=== PATIENT | male | born 1980 | race Caucasian/White ===

== ENCOUNTER 2025-04-09 12:08 | Emergency (ER) | payer OTHER, SELFPAY ==
--- NOTE | ~2025-04-09 | XR_ITS ---
EXAMINATION: XR chest 2V 04/09/2025 13:30 INDICATION: Chest pain PROCEDURE: 2 view chest COMPARISON: No prior studies for comparison. FINDINGS: The lungs are clear. The cardiomediastinal silhouette is within normal limits. There are no pleural effusions. There is no pneumothorax suspected. IMPRESSION: 1: NO ACUTE CARDIOPULMONARY DISEASE. Reviewed, dictated and finalized at location B.
--- NOTE | ~2025-04-09 | US_ITS ---
RIGHT UPPER QUADRANT ABDOMINAL ULTRASOUND (Doppler ultrasound interrogation techniques used as needed for this exam.) Ordering provider: Yimi Thomason MD History: . RUQ pain . Comparison: None. FINDINGS: PANCREAS: Normal echotexture and size of the visualized portion. PORTAL VEIN: Hepatopedal flow demonstrated. LIVER: Normal size and echotexture. No focal hepatic lesions or perihepatic fluid collections are katelynn ntified. BILIARY DUCTS: No intra or extrahepatic biliary dilation. Common bile duct measures 4.3 mm in diamete r which is normal for patient's age. GALLBLADDER: Normal. No stones, sludge, gallbladder wall thickening or pericholecystic fluid. Wall th ickness is 3.1 mm. Negative sonographic Rubio's sign. Abdominal aorta: Normal. IVC: Patent. FREE FLUID: None visualized within the upper abdomen. IMPRESSION: normal right upper quadrant ultrasound. Reviewed, dictated and finalized at location A.
--- OUTSIDE RECORDS SUMMARY | 2025-04-09 12:12 | XMS_ITS | Continuity of Care Document ---
Author Name [facility] Organization [facility] Care Team Providers Care Maintenance Team Member Name Role Phone [facility] Unavailable Unavailable Problems Combined list of problems from Department of Defense and Veterans Affairs facilities. It does not include entries that were removed or entered in error. Problem Status Onset Date Problem Type Date of Resolution Comments Source Disorder of the skin and subcutaneous tissue, unspecified Active 9 Condition DoD tobacco use Active Condition DoD WARTS PLANTAR Inactive Condition DoD HYPERLIPIDEMIA Active Condition DoD Removal Of Sutures Inactive Condition Do D Aftercare Following Surgery Of Skin And Subcutaneous Tissue Inactive Condition DoD SORE THROAT Inactive Condition DoD SEBACEOUS CYST Active Condition DoD GASTROENTERITIS VIRAL Inactive Condition DoD REFRACTIVE ERROR - HYPERMETROPIA Active Condition DoD ASTIGMATISM - REGULAR Active Condition DoD COMMON COLD Inactive Condition DoD physical trauma sports-related Inactive Condition DoD SPRAIN RIBS Inactive Condition DoD work-related environmental exposure Inactive Condition DoD visit for: services flight physical Active Condition DoD visit for: services physical pre-deployment Active Condition [facility] visit for: screening exam malaria Active Condition DoD SINUSITIS Active Condition [facility] visit for: administrative purpose Inactive Condition [facility] visit for: screening exam venereal disease Active Condition DoD Vesicle (___mm) Active Condition DoD EPIDERMAL INCLUSION CYST Inactive Condition DoD upper back pain (between shoulder blades) Active Condition DoD ALLERGIC RHINITIS Active Condition DoD SHOULDER STRAIN LEFT Inactive Condition [facility] visit for: refer patient without exam or treatment Active Condition DoD limb pain Inactive Condition DoD RHINITIS Inactive Condition DoD BURSITIS Active Condition DoD UPPER RESPIRATORY INFECTION Active Condition Likely viral etiology, although erthematous tonsils appreciated. WIll cx to r/o strep. quarters x 24hrs. F/u with 24 hour quarters again toomorrow if patient returns and continues to feel ill. addendum:Rapid strep + , pt tolerated injections well. DoD Patient Education Active Condition DoD CARPAL TUNNEL SYNDROME Active Condition DoD visit for: occupational health / fitness exam Inactive Condition Cleared, see o/p DoD joint pain, localized in the knee Active Condition DoD TENDONITIS PATELLAR Active Condition Do D NO PSYCHIATRIC DIAGNOSIS OR CONDITION ON AXIS I Inactive Condition DoD NON-INFECTIOUS GASTROENTERITIS Inactive Condition DoD Patient Counseling: Inactive Condition D oD CONTUSION WITH INTACT SKIN SURFACE - LEFT LITTLE FINGER Inactive Condition DoD VIRAL DISEASE Active Condition DoD visit for: services physical Active Condition DoD visit for: issue medical certificate fitness Inactive Condition 422 COMPLETED DoD Outpatient Physician Consultation Inactive Condition DoD Medications Combined list of outpatient medications from Department of Defense and Veterans Affairs facilities.Medications provided include 1) outpatient medications from the last 15 months, and 2) patient-reported medications. Medication Details Route Status Patient Instructions Prescription Expires Prescription Number Last Dispense Date Ordering Provider Order Date Order Qty Source atorvastati n 10 mg tablet = 1 tab(s), Oral, Daily, # 90 EA, 1 total refill(s ), Soft Stop Oral (given by mouth) Ordered 5 2024 90.0 Ambulat ory Pharmac y carbamide peroxide 6.5% ear drops [15mL] See Instruct ions, # 15 mL, 0 total refill(s ), Soft Stop Ordered 5 2024 15.0 Ambulat ory Pharmac y ergocalcife rol 1.25 mg (50,000 units) capsule See Instruct ions, # 13 EA, 2 total refill(s ), Soft Stop Ordered 5 2024 13.0 Ambulat ory Pharmac y fluticasone 50 mcg/inh nasal spray [16g] See Instruct ions, # 48 g, 0 total refill(s ), Soft Stop Ordered 5 2024 48.0 Ambulat ory Pharmac y Hydrocortis one (ProctoCrea m-HC Eq.) Cream 2.5% Topical For external use. 03/05/2025 [id number] 4 2023 28.35 [facility] Gus PEREZ ([facility] hydrocortis one 2.5% cream [30g] See Instruct ions, # 30 g, 0 total refill(s ), Soft Stop Ordered 5 2024 30.0 Ambulat ory Pharmac y hydrocortis one 2.5% rectal cream w/ applicator [28.35g] See Instruct ions, # 28.35 g, 0 total refill(s ), Hard Stop Complet ed 03/05/2025 4 2024 28.35 Ambulat ory Pharmac y influenza virus vaccine, inactivated mdck cell derived quadrivalen t intramuscul ar suspension influenz a virus vaccine, inactiva fabián mdck cell derived quadriva lent intramus cular suspensi on Start Date: 09/12/20 Status: Ordered Repeat number: 1 Ordered 2020 No Facilit y Access loratadine 10 mg tablet See Instruct ions, # 90 EA, 0 total refill(s ), Soft Stop Ordered 5 2024 90.0 Ambulat ory Pharmac y triamcinolo ne 0.1% cream [15g] See Instruct ions, # 30 g, 0 total refill(s ), Soft Stop Ordered 5 2024 30.0 Ambulat ory Pharmac y Allergies, Adverse Reactions, Alerts Combined list of allergies from Department of Defense and Veterans Affairs facilities. It does not include entries that were removed or entered in error. Substance Category Reaction Severity Reaction type Status Date Reported Comments Source No Known Allergies Drug allergy (disorder) active 07/09/2008 [facility] Immunizations Combined list of available immunizations from the Department of Defense and Veterans Affairs facilities. Immunization Series Date Given Administered By Site Reaction Lot Number CVX Code Drug Hand Striper Status Comments Source COVID Vaccine Moderna 2020 [id number] complet ed COVID Vaccine Moderna 03/18/21 Given Ambulat ory Pharmac y SARS-COV-2 (COVID-19) vaccine, mRNA, spike protein, LNP, preservative free, 100 mcg or 50 mcg dose 2 2020 [id number] Moderna [employer] (MOD) complet ed SARS-COV- 2 (COVID-19 ) vaccine, mRNA, spike protein, LNP, preservat candelario free, 100 mcg or 50 mcg dose DoD COVID Vaccine Moderna 2020 [id number] complet ed COVID Vaccine Moderna 02/18/21 Given Ambulat ory Pharmac y SARS-COV-2 (COVID-19) vaccine, mRNA, spike protein, LNP, preservative free, 100 mcg or 50 mcg dose 1 2020 [id number] 207 Moderna [employer] (MOD) complet ed SARS-COV- 2 (COVID-19 ) vaccine, mRNA, spike protein, LNP, preservat candelario free, 100 mcg or 50 mcg dose DoD influenza virus vaccine, inactivated 2019 88 complet ed influenza virus vaccine, inactivat ed 09/06/20 Given Ambulat ory Pharmac y influenza, injectable, quadrivalent- pf 2019 [id number] 150 complet ed influenza , injectabl e, quadrival ent-pf 09/06/20 Given Ambulat ory Pharmac y Influenza, injectable, MDCK, quadrivalent, preservative 2019 ELMA RICHARDSON, () Not Given Influenza , injectabl e, MDCK, quadrival ent, preservat candelario DoD Influenza, injectable, quadrivalent, preservative free 1 2019 150 Transcribed (TRS) complet ed Influenza , injectabl e, quadrival ent, preservat candelario free DoD Influenza, injectable, Madin Prince [place] Canine Kidney, quadrivalent with preservative 0 2019 186 (MVX) complet ed Influenza , injectabl e, Madin Martha Canine Kidney, quadrival ent with preservat candelario DoD influenza, injectable, quadrivalent- pf 2018 [id number] 150 Seqirus complet ed influenza , injectabl e, quadrival ent-pf 09/25/19 Given Ambulat ory Pharmac y Influenza, injectable, quadrivalent, preservative free 1 2018 [id number] 150 Seqirus (SEQ) complet ed Influenza , injectabl e, quadrival ent, preservat candelario free DoD influenza, injectable, quadrivalent- pf 2017 [id number] 150 GlaxoSmithKli ne complet ed influenza , injectabl e, quadrival ent-pf 10/28/18 Given Ambulat ory Pharmac y Influenza, injectable, quadrivalent, preservative free 1 2017 [id number] 150 SmithKline (SKB) complet ed Influenza , injectabl e, quadrival ent, preservat candelario free DoD influenza, injectable, quadrivalent 2016 [id number] 158 GlaxoSmithKli ne complet ed influenza , injectabl e, quadrival ent 09/13/17 Given Ambulat ory Pharmac y influenza, injectable, quadrivalent, contains preservative 0 2016 [id number] 158 SmithKline (SKB) complet ed influenza , injectabl e, quadrival ent, contains preservat candelario DoD influenza, seasonal, injectable-pf 2015 [id number] 140 Seqirus complet ed influenza , seasonal, injectabl e-pf 09/04/16 Given Ambulat ory Pharmac y Influenza, seasonal, injectable, preservative free 16 2015 [id number] 140 Seqirus (SEQ) comple t ed Influenza , seasonal, injectabl e, preservat candelario free DoD influenza, seasonal, injectable-pf 2015 [id number] 140 CSL Behring complet ed influenza , seasonal, injectabl e-pf 11/23/15 Given Ambulat ory Pharmac y Influenza, seasonal, injectable, preservative free 15 2015 [id number] 140 CS Biotherapies, Inc. (CSL) complet ed Influenza , seasonal, injectabl e, preservat candelario free DoD influenza, seasonal, injectable 2013 [id number] 141 ID Biomedical comple t ed influenza , seasonal, injectabl e 10/26/14 Given Ambulat ory Pharmac y Influenza, seasonal, injectable 14 2013 [id number] 141 (IDB) complet ed Influenza , seasonal, injectabl e DoD influenza, seasonal, injectable 2012 [id number] 141 CSL Behring complet ed influenza , seasonal, injectabl e 08/12/13 Given Ambulat ory Pharmac y Influenza, seasonal, injectable 13 2012 [id number] 141 CS [employer]otherapies[employer] Inc. (CSL) complet ed Influenza , seasonal, injectabl e DoD influenza, seasonal, injectable-pf 2011 [id number] 140 CSL Behring complet ed influenza , seasonal, injectabl e-pf 08/22/12 Given Ambulat ory Pharmac y Influenza, seasonal, injectable, preservative free 12 2011 [id number] 140 CS Biotherapies[employer] Inc. (CSL) complet ed Influenza , seasonal, injectabl e, preservat candelario free DoD tetanus, diphtheria, acellular pertu is 2011 [id number] 115 [facility] tetanus, diphtheri a, acellular pertussis 06/19/12 Given Ambulat ory Pharmac y tetanus toxoid, reduced diphtheria toxoid, and acellular pertu is vaccine, adsorbed 0 2011 [id number] [id number] 115 SmithKline (SKB) complet ed tetanus toxoid, reduced diphtheri a toxoid, and acellular pertussis vaccine, adsorbed DoD influenza, seasonal, injectable-pf 2010 [id number] 140 sanofi pasteur complet ed influenza , seasonal, injectabl e-pf 09/06/11 Given Ambulat ory Pharmac y Influenza, seasonal, injectable, preservative free 11 2010 [id number] 140 Sanofi Pasteur (PMC) complet ed Influenza , seasonal, injectabl e, preservat candelario free DoD hepatitis B adult vaccine 2010 [id number] 43 GlaxoSmithKli ne complet ed hepatitis B adult vaccine 01/26/11 Given Ambulat ory Pharmac y anthrax vaccine 2010 [id number] 24 Emergent Biosolutions complet ed anthrax vaccine 01/26/11 Given Ambulat ory Pharmac y anthrax vaccine 3 2010 [id number] 24 Emergent Bio[employer] [place] ([facility]) complet ed anthrax vaccine DoD hepatitis B vaccine, adult dosage 3 2010 [id number] 43 SmithSolidariumine (SKB) complet ed hepatitis B vaccine, adult dosage DoD hepatitis B adult vaccine 2009 [id number] [id number] 43 GlaxoSmithKli ne complet ed hepatitis B adult vaccine 08/16/10 Given Ambulat ory Pharmac y anthrax vaccine 2009 [id number] 24 Emergent Biosolutions complet ed anthrax vaccine 08/16/10 Given Ambulat ory Pharmac y influenza virus vaccine,split 2009 [id number] 15 CSL Behring complet ed influenza virus vaccine,s plit 08/16/10 Given Ambulat ory Pharmac y influenza virus vaccine, split virus (incl. purified surface antigen)-reti red CODE 1 2009 [id number] 15 CSL Biotherapies, Inc. (CSL) complet ed influenza virus vaccine, split virus (incl. purified surface antigen)- retired CODE DoD anthrax vaccine 2 2009 [id number] 24 [employer] [place] (MIP) complet ed anthrax vaccine DoD hepatitis B vaccine, adult dosage 2 2009 [id number] 43 SmithKline (SKB) complet ed hepatitis B vaccine, adult dosage DoD typhoid Vi capsular polysaccharid e vac 2009 Q8049-2 101 sanofi pasteur complet ed typhoid Vi capsular polysacch aride vac 07/06/10 Given Ambulat ory Pharmac y hepatitis B adult vaccine 2009 [id number] [id number] 43 GlaxoSmithKli ne complet ed hepatitis B adult vaccine 07/06/10 Given Ambulat ory Pharmac y anthrax vaccine 2009 [id number] Emergent Biosolutions complet ed anthrax vaccine 07/06/10 Given Ambulat ory Pharmac y anthrax vaccine 1 2009 [id number] 24 [employer] [place] (MIP) complet ed anthrax vaccine DoD hepatitis B vaccine, adult dosage 1 2009 [id number] [id number] 43 [facility] (SKB) complet ed hepatitis B vaccine, adult dosage DoD typhoid Vi capsular polysaccharid e vaccine 1 2009 P8946-2 101 Sanofi Pasteur ([facility]) complet ed typhoid Vi capsular polysacch aride vaccine DoD Novel influenza-H1N 1-09,pf,injec table 2009 [id number] 1 126 Novartis Pharmaceutica ls complet ed Novel influenza -N9V6-87, pf,inject able 12/27/09 Given Ambulat ory Pharmac y Novel influenza-H1N 1-09, preservative- free, injectable 1 2009 [id number] 1 126 Novartis Pharmaceutica l Jeffry. (NOV) complet ed Novel influenza -H8O0-51, preservat candelario-free, injectabl e DoD influenza virus vaccine,split 2008 [id number] 15 sanofi pasteur complet ed influenza virus vaccine,s plit 09/07/09 Given Ambulat ory Pharmac y influenza virus vaccine, split virus (incl. purified surface antigen)-reti red CODE 1 2008 [id number] 15 Sanofi Pasteur ([facility]) complet ed influenza virus vaccine, split virus (incl. purified surface antigen)- retired CODE DoD influenza virus vaccine, live 2007 [id number] 111 Rentalutions Inc comple t ed influenza virus vaccine, live 08/24/08 Given Ambulat ory Pharmac y influenza virus vaccine, live, attenuated, for intranasal use 1 2007 [id number] 111 RetSKU, Inc. (MED) complet ed influenza virus vaccine, live, attenuate d, for intranasa l use DoD influenza virus vaccine, live 2006 [id number] 111 Rental[employer] Inc comple t ed influenza virus vaccine, live 10/02/07 Given Ambulat ory Pharmac y influenza virus vaccine, live, attenuated, for intranasal use 1 2006 [id number] 111 RetSKU[employer]. (MED) complet ed influenza virus vaccine, live, attenuate d, for intranasa l use DoD influenza virus vaccine,split 2005 [id number] 15 sanofi pasteur complet ed influenza virus vaccine,s plit 11/01/06 Given Ambulat ory Pharmac y influenza virus vaccine, split virus (incl. purified surface antigen)-reti red CODE 1 2005 [id number] 15 Sanofi Pasteur ([facility]) complet ed influenza virus vaccine, split virus (incl. purified surface antigen)- retired CODE DoD influenza virus vaccine, whole virus 1 2005 Unknown, Provider [id number] 16 Sanofi Pasteur ([facility]) complet ed influenza virus vaccine, whole virus DoD influenza virus vaccine, whole virus 2004 [id number] 16 sanofi pasteur complet ed influenza virus vaccine, whole virus 10/10/05 Given Ambulat ory Pharmac y influenza virus vaccine,split 2004 [id number] 15 sanofi pasteur complet ed influenza virus vaccine,s plit 10/10/05 Given Ambulat ory Pharmac y influenza virus vaccine, split virus (incl. purified surface antigen)-reti red CODE 1 2004 [id number] 15 Sanofi Pasteur ([facility]) complet ed influenza virus vaccine, split virus (incl. purified surface antigen)- retired CODE DoD influenza virus vaccine, whole virus 1 2004 [id number] 16 Sanofi Pasteur (PMC) complet ed influenza virus vaccine, whole virus DoD influenza virus vaccine, whole virus 2004 [id number] 16 sanofi pasteur complet ed influenza virus vaccine, whole virus 12/20/04 Given Ambulat ory Pharmac y influenza virus vaccine, whole virus 0 2004 [id number] 16 Sanofi Pasteur (PMC) complet ed influenza virus vaccine, whole virus DoD influenza virus vaccine, whole virus 2002 [id number] 16 Novartis TourRadartica complet ed influenza virus vaccine, whole virus 10/05/03 Given Ambulat ory Pharmac y influenza virus vaccine, whole virus 0 2002 [id number] 16 PowderJect Pharmaceutica ls (PWJ) complet ed influenza virus vaccine, whole virus DoD tuberculin purified protein derivative 2002 [id number] 96 sanofi pasteur complet ed tuberculi n purified protein derivativ e 11/25/02 Given Ambulat ory Pharmac y tuberculin skin test; purified protein derivative solution, intradermal 1 2002 Unknown, Provider [id number] 96 Sanofi Pasteur (PMC) complet ed tuberculi n skin test; purified protein derivativ e solution, intraderm al DoD influenza virus vaccine, whole virus 2001 [id number] 16 [employer] complet ed influenza virus vaccine, whole virus 09/16/02 Given Ambulat ory Pharmac y influenza virus vaccine, whole virus 0 2001 [id number] 16 [facility] ([facility]) complet ed influenza virus vaccine, whole virus DoD typhoid Vi capsular polysaccharid e vac 2001 [id number] 101 sanofi pasteur complet ed typhoid Vi capsular polysacch aride vac 05/12/02 Given Ambulat ory Pharmac y yellow fever vaccine 2001 [id number] 37 sanofi pasteur complet ed yellow fever vaccine 05/12/02 Given Ambulat ory Pharmac y yellow fever vaccine 0 2001 [id number] 37 Sanofi Pasteur (PMC) complet ed yellow fever vaccine DoD typhoid Vi capsular polysaccharid e vaccine 0 2001 [id number] 101 Sanofi Pasteur (PMC) complet ed typhoid Vi capsular polysacch aride vaccine DoD hepatitis A adult vaccine 2001 [id number] 52 GlaxoSmithKli ne complet ed hepatitis A adult vaccine 05/02/02 Given Ambulat ory Pharmac y tetanus-dipht h toxoids (Td) adult/adol 2001 [id number] 09 sanofi pasteur complet ed tetanus-d iphth toxoids (Td) adult/ado l 05/02/02 Given Ambulat ory Pharmac y tetanus and diphtheria toxoids, adsorbed, preservative free, for adult use (2 Lf of tetanus toxoid and 2 Lf of diphtheria toxoid) 0 2001 [id number] 09 Sanofi Pasteur (PMC) complet ed tetanus and diphtheri a toxoids, adsorbed, preservat candelario free, for adult use (2 Lf of tetanus toxoid and 2 Lf of diphtheri a toxoid) DoD hepatitis A vaccine, adult dosage 2 2001 [id number] 52 [employer] (SKB) complet ed hepatitis A vaccine, adult dosage DoD measles/mumps /rubella virus vaccine 2000 [id number] 03 Merck & Company Inc complet ed measles/m umps/rube lla virus vaccine 09/06/01 Given Ambulat ory Pharmac y measles, mumps and rubella virus vaccine 0 2000 [id number] 03 Merck (MSD) complet ed measles, mumps and rubella virus vaccine DoD varicella virus vaccine 1 2000 21 () Not Given varicella virus vaccine DoD poliovirus vaccine, inactivated 2000 [id number] 10 sanofi pasteur complet ed polioviru s vaccine, inactivat ed 08/30/01 Given Ambulat ory Pharmac y tuberculin purified protein derivative 2000 [id number] 96 [facility] tuberculi n purified protein derivativ e 08/30/01 Given Ambulat ory Pharmac y hepatitis A adult vaccine 2000 [id number] 52 Merck & Company Inc complet ed hepatitis A adult vaccine 08/30/01 Given Ambulat ory Pharmac y meningococcal polysaccharid e (MPSV4) 2000 [id number] 32 [facility] ed meningoco ccal polysacch aride (MPSV4) 08/30/01 Given Ambulat ory Pharmac y influenza virus vaccine, whole virus 2000 [id number] 16 [facility] complet ed influenza virus vaccine, whole virus 08/30/01 Given Ambulat ory Pharmac y poliovirus vaccine, inactivated 0 2000 [id number] 10 Sanofi Pasteur (PMC) complet ed polioviru s vaccine, inactivat ed DoD influenza virus vaccine, whole virus 0 2000 [id number] 16 [facility] ([facility]) complet ed influenza virus vaccine, whole virus DoD meningococcal polysaccharid e vaccine (MPSV4) 0 2000 [id number] 32 [facility] (CON) complet ed meningoco ccal polysacch aride vaccine (MPSV4) DoD hepatitis A vaccine, adult dosage 1 2000 [id number] 52 Merck (MSD) complet ed hepatitis A vaccine, adult dosage DoD tuberculin skin test; purified protein derivative solution, intradermal 1 2000 Unknown, Provider [id number] 96 Louise (TODD) complet ed tuberculi n skin test; purified protein derivativ e solution, intraderm al DoD Encounters Combined list of: 1) Encounters from Department of Veterans Affairs facilities going backup to the last 18 months, not all VA inpatient encounters are included; 2) Encounters from the Department of Defense facilities going backup to 280 months. Location Location Details Encounter Type Encounter Number Reason For Visit Attending Provider ADM Date DC Date Status Disposition Source [facility] OUTPATIENT [id number] rec rev EFREN ALCOCER 08/08 Released w/o Limitations [facility]) TELE CONSULT [id number] pt has concern s about a wart that was frozen YVROSE SY 08/31 [facility]) [facility]) TELE CONSULT [id number] MED REFILL YVROSE SY 10/25 [facility]) [facility] OUTPATIENT [id number] 422 PANFILO GONZALES 12/28 Released w/o Limitations [facility] OUTPATIENT [id number] EFREN ALCOCER 01/03 Released w/o Limitations [facility]) OUTPATIENT [id number] cold OMAR HARDEN 01/04 Sick at Home/Quarter s [facility]) [facility]) TELE CONSULT [id number] sore throat getting worse JULIO C GRAY 01/05 [facility] Group([facility]) [facility]) OUTPATIENT [id number] hurt finger OMAR HARDEN 02/17 Released w/o Limitations [facility]) [facility]) TELE CONSULT [id number] cold symptom s ELLIOT STERLING M 11/27 [facility]) [facility] OUTPATIENT [id number] d/ dizzyne ss OMAR HARDEN W 04/02 [facility]ick at Home[facility] OUTPATIENT [id number] lft knee pain OMAR HARDEN W 09/06 Released w/o Limitations [facility] OUTPATIENT [id number] lft knee pain OMAR HARDEN W 10/08 Released w/o Limitations [facility] OUTPATIENT [id number] Initial Firefig hter Exam WILNER DICKERSON 12/26 Released w/o Limitations [facility] OUTPATIENT [id number] Wrist pain OMAR HARDEN W 01/29 Released w/o Limitations [facility]) TELE CONSULT [id number] URGENT CARE REFERRA REGINO BROWN 05/15 [facility]) [facility] TELE CONSULT [id number] STD check KARIE MEDLEY Carson 06/14 [facility] TELE CONSULT [id number] lab results PAKO WILLS 06/21 [facility] OUTPATIENT [id number] congest ion, headach es, nausea CORNELIA GENAO 10/21 Released w/o Limitations [facility] TELE CONSULT [id number] URI CORNELIA GENAO 10/22 [facility] OUTPATIENT [id number] left foot pain CORNELIA GENAO 04/14 Released w/o Limitations [facility] OUTPATIENT [id number] Orthope dic DME lace-up ankle brace RENATA JUARES 04/14 Released w/o Limitations [facility] OUTPATIENT [id number] sore throat and fever CORNELIA GENAO 06/03 Released w/o Limitations [facility] TELE CONSULT [id number] Paperwo CHRISTINE Nicholson 07/09 [facility] OUTPATIENT [id number] sore throat and congest ion VI-LILIAM GEE 10/01 Released w/o Limitations [facility] OUTPATIENT [id number] congest ion JULIO CESAR JUDGE YNES 10/06 Released w/o Limitations [employer]([facility]) [facility] Group(Tat [facility] Team) OUTPATIENT [id number] pain in left leg, lump like blood under the skin on leg JOSIAS ROTHMAN 07/13 Released w/o Limitations [employer] [facility] TELE CONSULT [id number] triage report/ ANDRÉS Gupta 08/23 [facility] Group[facility] OUTPATIENT [id number] pains back of left shoulde r -got worse this morning /someth ing popped JOSIAS ROTHMAN 09/15 Released w/o Limitations [employer] [facility] OUTPATIENT [id number] Pt said new issue- upper right back pains for a week and no change JOSIAS ROTHMAN 03/11 Released w/o Limitations [employer](T atanka FH Team) Medical Group(FO C) OUTPATIENT [id number] jed CJ LARA L 03/22 Released w/o Limitations [employer]([facility]) [employer] Group(Tat anka FH Team) OUTPATIENT [id number] RASH JOSIAS ROTHMAN T 05/05 Released w/o Limitations [employer](T atanka FH Team) Medical Group(Tat anka FH Team) TELE CONSULT [id number] [facility] ed for results MATTHEW SEGOVIA 05/10 Medical Group(T atanka FH Team) [employer](Tat anka FH Team) OUTPATIENT [id number] f/u-- Pt said possibl e sinus infecti on and symptom s got worse BENJAMIN HOUGH 06/06 Released w/o Limitations [employer](T sissynka FH Team) Medical Group(FO C) OUTPATIENT [id number] Malaria Screeni ng CJ LARA L 06/29 Released w/o Limitations [employer]([facility]) Medical Group(FO C) OUTPATIENT [id number] ROSINA Otto 04/10 Released w/o Limitations [employer]([facility]) Medical Group(Dep [facility] Health Assessmen ts) OUTPATIENT [id number] PDHROSINA CHRISTENSEN 07/14 Released w/o Limitations [employer] [employer] Group(Tat anka FH Team) OUTPATIENT [id number] rib pains JOSIAS ROTHMAN T 08/16 Released w/o Limitations [employer](T sissynka FH Team) Medical Group(Tat anka FH Team) OUTPATIENT [id number] broke rib 3 weeks ago, still not getting better JOSIAS ROTHMAN T 09/13 Released with Work/Duty [employer](T sissynka FH Team) [employer](Tat anka FH Team) OUTPATIENT [id number] congest ion, cough, and diarrhe a JOSIAS ROTHMAN T 10/23 Released w/o Limitations [employer](T sissyncatie FH Team) Medical Group(Opt ometry Clinic) OUTPATIENT [id number] karli-a nnual eye exam WANDA NICOLE 11/02 Released w/o Limitations [employer](O ptometr y Clinic) [employer] Group(Tat faustinoa Team) OUTPATIENT [id number] vomitin g, diarrhe a, congest ion, chills, JOSIAS ROTHMAN T 11/28 Sick at Home/Quarter s [employer](Mark Anthony owen FH Team) [employer] Group(Tat faustinoa Team) OUTPATIENT [id number] congest ion, runny nose, possibl e allergi es JOSIAS ROTHMAN T 02/08 Released w/o Limitations [employer](Mark Anthony owen Team) Medical Group(Pre ventive Health Assessmen ts) OUTPATIENT [id number] PHA MEREDITH CHAPIN 03/21 Released w/o Limitations [employer](P reventi ve Health Assessm ents) Medical Group(Tat anka Team) OUTPATIENT [id number] Notes Entered by: HUMBERTO CHATMAN 09 Jul 2012 1300 ------- ------- ------- ------- -- walk in strep JOSIAS ROTHMAN T 07/09 Released w/o Limitations [employer]([facility] o[facility] Team) [employer](Tat anka Team) TELE CONSULT [id number] Notes Entered by: DAELSO VALENTIN 30 Jul 2012 1303 ------- ------- ------- ------- -- Other JOSIAS ROTHMAN T 07/30 Medical Group(Mark Anthony owen Team) Medical Group(Tat anka Team) TELE CONSULT [id number] Notes Entered by: SHEY ASIF 30 Jul 2012 1407 ------- ------- ------- ------- -- Other NADER HUTCHINSON 07/30 Medical Group(T lexie Team) [facility] OUTPATIENT [id number] Notes Entered by: HUMBERTO CHATMAN 15 Aug 2012 0916 ------- ------- ------- ------- -- walk in suture removal JOSIAS ROTHMAN 08/15 Released w/o Limitations [employer]([facility] Anthony owen FH Team) [employer](Dep loyment Health Assessmen ts) OUTPATIENT [id number] [facility] PHOEBE NGUYỄN 08/22 Released w/o Limitations [employer](D eployme nt Health Assessm ents) [employer](Anand miranad OM Team) TELE CONSULT [id number] Notes Entered by: BECKY CHAPPELL 27 Dec 2012 1213 ------- ------- ------- ------- -- 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 BECKY BLANK 12/27 [employer](R bhargav OM Team) [employer]([facility] luis Health B) OUTPATIENT [id number] f/u on allergi es ALONDRA BEAVERS 02/05 Released w/o Limitations [employer]( amily Health B) [employer]([facility] luis Health B) TELE CONSULT [id number] MINERVA JONES 03/11 [employer]( amily Health B) [employer](y sical Health Assessmen t) OUTPATIENT [id number] ELISSA VILLA 03/13 Released w/o Limitations [employer](P hysical Health Assessm ent) [employer]([facility] luis Health B) OUTPATIENT [id number] f/u blood work ALONDRA BEAVERS 03/20 Released w/o Limitations [employer](F amily Health B) [employer]([facility] luis Health B) OUTPATIENT [id number] wart removal ALONDRA BEAVERS 08/11 Released w/o Limitations [employer]( amily Health B) [employer]([facility] B) OUTPATIENT [id number] ileanat musa ALONDRA BEAVERS 01/20 Released w/o Limitations [employer]([facility] Health B) [employer]([facility] B) OUTPATIENT [id number] JED ALONDRA BEAVERS 03/25 Released w/o Limitations [employer]([facility] B) [employer]([facility] B) TELE CONSULT [id number] Notes Entered by: MARILEE AVILES 05 Oct 2014 0933 ------- ------- ------- ------- -- Zuccare lli triage; hole in left eyelid/ swollen TITUS CHLOÉ A 10/05 Referred for Appointment [employer]([facility] B) [employer](Opt ometry Clinic) OUTPATIENT [id number] Notes Entered by: Marcy CAMARENA JR 05 Oct 2014 1015 ------- ------- ------- ------- -- red eye walk in RANDY ROMAN 10/05 Released w/o Limitations [employer](O ptometr y Clinic) [employer](Opt ometry Clinic) OUTPATIENT [id number] eye pain f/u RANDY ROMAN 10/26 Released w/o Limitations [employer](O ptometr y Clinic) [employer]([facility] B) OUTPATIENT [id number] possibl e carpel tunnel in wrists ALONDRA BEAVERS 11/25 Released w/o Limitations [employer]([facility] B) [employer]([facility] C) TELE CONSULT [id number] Notes Entered by: KANA POWERS 09 Dec 2014 1225 ------- ------- ------- ------- -- Radiolo gy wrist TITI RAHMAN 12/09 Released to Self [employer]([facility] C) [employer]([facility]) TELE CONSULT [id number] Notes Entered by: NINA ORTIZ ON T 23 Dec 2014 0820 ------- ------- ------- ------- -- TRIAGE Pt is having chest congest ion, product candelario cough, sluggis h. TITI RAHMAN 12/23 Released to Self Care [employer]([facility]) [employer]([facility]) TELE CONSULT [id number] Notes Entered by: AMERICA GLASGOW 10 Feb 2015 1433 ------- ------- ------- ------- -- CHLOÉ Turcios 02/10 Released to Self Care [employer]([facility]) [employer]([facility]) TELE CONSULT [id number] Notes Entered by: JOSE MARIA HYMAN 04 Mar 2015 0925 ------- ------- ------- ------- -- Network Results - Neurolo ALONDRA Butts 03/04 [employer]([facility]) [employer]([facility]) TELE CONSULT [id number] Notes Entered by: MARILEE AVILES 05 Apr 2015 1247 ------- ------- ------- ------- -- Triage; joelle dye in ears TITI MOSES 04/05 Referred for Appointment [employer]([facility]) [employer]([facility]) OUTPATIENT [id number] Notes Entered by: EILEEN DE LOS SANTOS 06 Apr 2015 0756 ------- ------- ------- ------- -- walk-in ear wash (both ears) KANA POWERS 04/06 Released w/o Limitations [employer]([facility]) [employer](Fam luis Health B) TELE CONSULT [id number] Notes Entered by: REHAN BLAIR 13 Apr 2015 1020 ------- ------- ------- ------- -- Network Results - Orthope dic - 015 KANA POWERS 04/13 [employer](F amily Health B) [employer](y sical Health Assessmen t) OUTPATIENT [id number] Notes Entered by: JABARI WEAVER 23 Jun 2015 1324 ------- ------- ------- ------- -- Adminis trative PHA JABARI WEAVER 06/23 Released w/o Limitations [employer](P hysical Health Assessm ent) [employer]([facility] l[facility] Health B) TELE CONSULT [id number] Notes Entered by: EILEEN DE LOS SANTOS 07 Jun 2016 0827 ------- ------- ------- ------- -- Er suzanne malave/TOYIN Caputo 06/07 Referred for Appointment [employer](F amily Health B) [employer]([facility] l[facility] Health B) TELE CONSULT [id number] Notes Entered by: LISSETTE OLIVAS 07 Jun 2016 1132 ------- ------- ------- ------- -- NETWORK RESULTS ER-05/19 KANA POWERS 06/07 [employer](F amily Health B) [employer]([facility] l[facility] Health B) TELE CONSULT [id number] Notes Entered by: KANA POWERS 07 Jun 2016 1318 ------- ------- ------- ------- -- ER lou/LEON Antonio 06/07 Released to Self Care [employer](F amily Health B) [employer]([facility] luis Health B) OUTPATIENT [id number] ER follow up-ches t congest ion, sob, and joelle e. spoke with nurse already . KANA POWERS 06/08 Released w/o Limitations [employer]([facility]) [employer]([facility]) TELE CONSULT [id number] Notes Entered by: KANA POWERS P 09 Jun 2016 1241 ------- ------- ------- ------- -- CXR TOYIN DAVID 06/09 Referred for Appointment [employer]([facility]) [employer] [id number] Notes Entered by: ILSA RAI 02 Nov 2016 1551 ------- ------- ------- ------- -- Med Out-Pro cessing Workshe et ILSA CARIAS 11/02 Other Not Elsewhere Classified [employer] [employer]([facility] Medicine Clinic) OUTPATIENT [id number] Notes Entered by: KRISTIN JAMES 07 Feb 2017 1440 ------- ------- ------- ------- -- KRISTIN CHAN 02/07 Released w/o Limitations [employer]( light Medicin e Clinic) [employer](Tyn dall [facility] Team B) OUTPATIENT [id number] RASH ( GROIN AREA) OMAR MENDOZA 05/23 Released w/o Limitations [employer]([facility] Team B) [employer](Tyn sherley [facility] Team B) OUTPATIENT [id number] cold symptom s OMAR MENDOZA 06/06 Released w/o Limitations [employer]([facility] Team B) [employer](Tyn [facility] Team B) OUTPATIENT [id number] head and chest congest OMAR Christine 06/12 Released with Work/Duty Limitations [employer]([facility] Team B) [employer]([facility] Team B) TELE CONSULT [id number] Notes Entered by: ANTONIETA PEARSON 22 Nov 2017 1236 ------- ------- ------- ------- -- Triage non prp DEWAYNE KELLY 11/22 [employer]([facility] Team B) [facility] Team B) OUTPATIENT [id number] vertigo x 3 days OWEN METZGER I 11/23 Released w/o Limitations [facility] [employer] [facility] Team B) [facility] Team B) TELE CONSULT [id number] Notes Entered by: ANTONIETA PEARSON 26 Nov 2017 1043 ------- ------- ------- ------- -- Lab Results DEWAYNE KELLY 11/26 [facility] [employer] [facility] Team B) [facility] [employer](Ref erral Managemen t Clinic) TELE CONSULT [id number] Notes Entered by: KVEIN PEARSON 04 Dec 2017 0949 ------- ------- ------- ------- -- Network Results -Radiol ogy 8 OWEN METZGER I 12/04 [employer](R [facility]) [facility] [employer] [facility] Team B) OUTPATIENT [id number] dizzine ss/ligh t headedn ess/hea d acheOWEN Lantigua I 12/06 Released w/o Limitations [facility] [employer] [facility] Team B) [facility] [employer] [facility] Optometry Clinic) OUTPATIENT [id number] SIVAN Weinberg 12/10 Released w/o Limitations [facility] [employer] [facility] Optomet ry Clinic) [facility] [employer] [facility] Team B) OUTPATIENT [id number] Notes Entered by: DEVORA OLVERA 30 Jan 2018 1029 ------- ------- ------- ------- -- PHADEVORA MARTINEZ 01/30 Released w/o Limitations [employer]([facility] Team B) [employer]([facility] Team B) TELE CONSULT [id number] Notes Entered by: DEVORA OLVERA 30 Jan 2018 1032 ------- ------- ------- ------- -- Allergy meds DEVORA OLVERA 01/30 [employer]([facility] Team B) [employer]([facility] Team A) OUTPATIENT [id number] Notes Entered by: JUHI SHULTZ I 20 Feb 2018 0803 ------- ------- ------- ------- -- Walkin sore throat MORIAH BYNUM 02/20 Released w/o Limitations [employer]([facility] Team A) [employer]([facility] Team B) TELE CONSULT [id number] Notes Entered by: JAILENE FONG 22 Apr 2018 0813 ------- ------- ------- ------- -- Triage - toe injury DEWAYNE KELLY 04/22 [employer]([facility] Team B) [employer]([facility] Team B) OUTPATIENT [id number] hit toe on the side of the tub. ANGIE HURST 04/22 Released w/o Limitations [facility] Team B) [employer]([facility] Team B) OUTPATIENT [id number] chest congest ion ANGIE HURST 07/17 Released w/o Limitations [facility] [employer]([facility] Team B) [facility] Clinic Team B) OUTPATIENT [id number] Notes Entered by: ANGELA VIDAL 14 Jan 2019 0702 ------- ------- ------- ------- -- *Conges tion, fever of 102, sweats/ /A nytime GORAN MADRID 01/14 Immediate Referral [employer](F amily Medicin e Clinic Team B) [employer](BOM C-Non Clinical) OUTPATIENT [id number] MHA / BRAULIO CHA 02/03 Released w/o Limitations [employer](B [facility]-Non Clinica l) [employer]([facility] Medicine Clinic Team B) OUTPATIENT [id number] 2 discuss skin tag removal ANITA VALDEZ 06/02 Released w/o Limitations [employer](F amily Medicin e Clinic Team B) [employer]([facility] Team A) TELE CONSULT [id number] Notes Entered by: ANGELA VIDAL 24 Nov 2019 0703 ------- ------- ------- ------- -- Cough, Congest ion, Dizzine ss since 11/22/19 MIHAI BAIN 11/24 Other Not Elsewhere Classified [employer]([facility] Team A) [employer]([facility] Team A) OUTPATIENT [id number] NARINDER RUSSELL 11/24 Sick at Home/Quarter s [employer](W [facility]rior Op Med Clinic Team A) [employer]([facility] Team A) OUTPATIENT [id number] cough,c ongesti on BRIANNE HERRERA F 11/27 Sick at Home/Quarter s [employer](W [facility]rior Op Med Clinic Team A) [employer]([facility] Team A) TELE CONSULT [id number] Notes Entered by: NATALIA CORCORAN 22 Dec 2019 1130 ------- ------- ------- ------- -- [facility] MIHAI BAIN 12/22 Referred for Appointment [employer]([facility] Team A) [employer]([facility] Team A) TELE CONSULT [id number] Notes Entered by: ANGELA VIDAL 26 Dec 2019 0832 ------- ------- ------- ------- -- Continu ed Vertigo Symptom s, feels like water is in ears MIHAI BAIN 12/26 Referred- Emergency Department [employer]([facility] Team A) [facility] Team A) TELE CONSULT [id number] Notes Entered by: SHANE ORTIZ 29 Dec 2019 1058 ------- ------- ------- ------- -- Network result - Dr Marcy crawford - 020 SHEY RICHARD 12/29 [facility](W [facility] Op Med Clinic Team A) [facility] [employer](BO C) OUTPATIENT [id number] PHA/OMARA SARA AUGUSTIN 01/13 Released w/o Limitations [facility] [employer](B [facility]) [facility] [employer](War [facility] Med [facility] Team A) OUTPATIENT [id number] dizzine ss x 1 month f/u ER, [facility] BEBE AVERY 01/18 Released w/o Limitations [facility] [employer](W [facility]rior Op Med Clinic Team A) [facility] [employer]([facility] Team A) TELE CONSULT [id number] Notes Entered by: FIONA ASKEW 28 Jan 2020 0706 ------- ------- ------- ------- -- DARCY Jean 01/27 Released to Self Care [employer]([facility] Team A) [employer]([facility] Team A) TELE CONSULT [id number] Notes Entered by: THOMAS MARADIAGA 05 Feb 2020 0942 ------- ------- ------- ------- -- network result neuro 01-29-20 20 BRAULIO LOVE 02/04 [facility](W [facility] Op Med [facility] Team A) [facility] Team A) TELE CONSULT [id number] Notes Entered by: MANDI CHAN 26 Apr 2020 1250 ------- ------- ------- ------- -- Request ing quarter s for lumbar punctur e BRUALIO LOVE 04/26 [facility](W [facility] Op Med [facility] Team A) [facility] Team A) TELE CONSULT [id number] Notes Entered by: VINH MEDINA 14 May 2020 0824 ------- ------- ------- ------- -- Sore throat/ cough MIHAI BAIN 05/14 Immediate Referral [facility](W [facility] Med [facility] Team A) [facility](War [facility] Op Med Clinic Team A) TELE CONSULT [id number] Notes Entered by: GOPAL MENDOZA 18 May 2020 1617 ------- ------- ------- ------- -- Network Results - Neurolo gy 05/18/20 BRAULIO LOVE 05/18 [facility](W [facility] Med Clinic Team A) [facility] Op Med Clinic Team A) TELE CONSULT [id number] Notes Entered by: SHANE ORTIZ 19 May 2020 0856 ------- ------- ------- ------- -- Network result - Neurolo gy - 020 BRAULIO LOVE 05/19 [facility](W [facility] Op Med Clinic Team A) [facility](Opt ometry Clinic) OUTPATIENT [id number] REE/Ret rabia Jun YVROSE FLORES 12/08 Released w/o Limitations [facility] [employer](O ptometr y Clinic) [facility] [employer](BOM C) OUTPATIENT [id number] [phone] VINH BritoLakeisha Morrison 01/31 Released w/o Limitations [facility](B [facility]) [employer]([facility] Team A) TELE CONSULT [id number] Notes Entered by: PATRICIA MENDOZA 14 Feb 2021 1127 ------- ------- ------- ------- -- Possibl e sleep apnea ELIOT OCAMPO 02/14 Referred for Appointment [employer]([facility] Med [facility] Team A) [facility] Team A) OUTPATIENT [id number] [phone] Eval for possibl e sleep apnea BRAULIO LOVE 02/23 Released w/o Limitations [facility](W [facility] Op Med Clinic Team A) [facility] Team A) OUTPATIENT [id number] fatigue , congest ion, cold symptom s NEVILLE MENDEZ 03/23 Released w/o Limitations [facility] Team A) TELE CONSULT [id number] Notes Entered by: PATRICIA MENDOZA 24 Mar 2021 1101 ------- ------- ------- ------- -- Medicat ion request DARCY CORCORAN 03/24 Released to Self Care [facility] Med Clinic Team A) [facility] Team A) OUTPATIENT [id number] [facility] [id number] NoF2F enc/Franchesca udio d/t mission limitat ions r/t C19 NEVILLE MENDEZ 06/06 Released w/o Limitations [facility](W [facility] Op Med Clinic Team A) Procedures Combined list of: 1) Procedures from Department of Veterans Affairs facilities going back up to thelast 18 months, not all VA non-surgical procedures are included; 2) All procedures from the Department of Defense facilities. Procedure Procedure Type Code Date Perfomer Comments Sourc e Non-Physician Phone Call To Patient/Provider Brief (5-10min) Non-Physician Phone Call To Patient/Provider Brief (5-10min) [id number] [facility] Non-Physician Phone Call To Patient/Provider Brief (5-10min) Non-Physician Phone Call To Patient/Provider Brief (5-10min) 88149 2017 DEWAYNE KELLY Non-Physician Phone Call To Patient/Provider Brief (5-10min) Non-Physician Phone Call To Patient/Provider Brief (5-10min) [address] [facility] Spectacles Services Fitting Monofocals (Not For Aphakia) [employer] Fitting Monofocals (Not For Aphakia) [address] [facility] Determination Of Refractive State Determination Of Refractive State 98547 2017 SIVAN CHARLES Ophthalmological New Patient Start Comprehensive Care Ophthalmological New Patient Start Comprehensive Care 80514 2017 SIVAN CHARLES Non-Physician Phone Call To Patient/Provider Brief (5-10min) Non-Physician Phone Call To Patient/Provider Brief (5-10min) 08969 2017 DEWAYNE KELLY Non-Physician Phone Call To Patient/Provider Brief (5-10min) Non-Physician Phone Call To Patient/Provider Brief (5-10min) 47497 2017 DEWAYNE KELLY Psychiatric Evaluation Review of Records and Reports Psychiatric Evaluation Review of Records and Reports [address] [facility] Respiratory Equip IPPB Related Equip Nebulizer Respiratory Equip IPPB Related Equip Nebulizer 89508 2015 KANA POWERS Non-Physician Phone Call To Pt/Provider Intermed (11-20 min) Non-Physician Phone Call To Pt/Provider Intermed (11-20 min) 96990 2015 TOYIN DAVID Cerumen Removal Right Ear Cerumen Removal Right Ear 43842 2014 KANA POWERS Ophthalmological Prior Patient Start Intermediate Level Care Ophthalmological Prior Patient Start Intermediate Level Care 48414 2013 RANDY ROMAN Destruction Of Flat Warts By Cryosurgery Up To 14 Lesions Destruction Of Flat Warts By Cryosurgery Up To 14 Lesions 31906 2012 ALONDRA BEAVERS Ophthalmological Prior Patient Start Comprehensive Care Ophthalmological Prior Patient Start Comprehensive Care 95189 2010 WANDA NICOLE Determination Of Refractive State Determination Of Refractive State 12997 2010 WANDA NICOLE [employer] Fitting Monofocals (Not For Aphakia) [employer] Fitting Monofocals (Not For Aphakia) 16683 2010 WANDA NICOLE Psychologic Testing And Report Administered By Computer Psychologic Testing And Report Administered By Computer [address] [facility] Visual Function Screening Visual Function Screening 57477 2009 CJ LARA Injection, betamethasone acetate 3 mg and betamethasone sodium phosphate 3 mg 2007 CORNELIA GENAO pt. recieved 1.2 mil Bicillin in left glute with 21 gauge needle. pt. also received 6 mg celestone to right glute at approximately 1135 hours. pt. response normal. Celestone exp.11/2009 lot#[id number]. [facility] Injection, penicillin G benzathine and penicillin G procaine, up to 1,200,000 units [address] Supervised Injection Intramuscular Supervised Injection Intramuscular [id number] 2007 CORNELIA GENAO Ankle orthosis, ankle gauntlet or similar, with or without joints, prefabricated, [id number] [address] [facility] Psychiatric Evaluation Review of Records and Reports Psychiatric Evaluation Review of Records and Reports [id number] [facility] Non-Physician Phone Call To Patient/Provider Brief (5-10min) Non-Physician Phone Call To Patient/Provider Brief (5-10min) [id number] MIHAI BAIN Ophthalmological New Patient Start Comprehensive Care Ophthalmological New Patient Start Comprehensive Care [id number] YVROSE FLORES Determination Of Refractive State Determination Of Refractive State 65413 YVROSE FLORES [facility] Fitting Monofocals (Not For Aphakia) [facility] Fitting Monofocals (Not For Aphakia) [address] [facility] No data available for this section Ambulato ry Pharmacy Social History Combined list of available smoking, tobacco, and other social history from [facility] of Defense and Veterans Affairs facilities. Social History Type Response Date Comment [facility] e This section is an empty social history section. DoD Assessment and Plan Combined list of future care activities from Department of Defense and Veterans Affairs facilities (e.g., assessment and plan notes, appointments, orders, and referrals). Additional future care activities may be listed in the Plan of Care section. Result Assessment and Plan Date Source Assessment and Plan No data available for this section 04/09/2025 Ambulatory Pharmacy Functional Status Combined list of recent functional and cognitive assessments recorded at [facility] of Defense and Veterans Affairs (VA).VA Functional [place] Measurement (FIM) Scale: 1 = Total Assistance (Subject = 0% +), 2 = Maximal Assistance (Subject = 25% +), 3 = Moderate Assistance (Subject = 50% +), 4 = Minimal Assistance (Subject = 75% +), 5 = Supervision, 6 = Modified Sonoita (Device), 7 = Complete Sonoita (Timely, Safely). Assessment Date/Time Source Assessment Type Assessment Skill Assessment Score Assessment Details No data available for this section
--- OUTSIDE RECORDS SUMMARY | 2025-04-09 12:12 | XMS_ITS | Continuity of Care Document ---
Author Organization [facility] [employer], [facility] Address [address] [place] [address] Care Team Providers Care Cell Feed Department Supervisor Name Role Phone YARIEL RYAN Primary Care Provider Assessment Encounter Date Assessment Date Assessment LastModified by Organization Details LastModified Time 04/09/2025 04/09/2025 D/w pt about his findings and further options for this. Answered all questions for pt. Advised pt to get checked out in ED for further evaluation. Pt agreed. Pt wants to drive by himself. F/u as per ED MD's recommendatio ns. [email or web address] Not available 04/09/2025 13:03:35 Plan of Treatment Reminders Order Date Submit Date Provider Last Modified By Organization Details Last Modified Time Details Appointments Sick/Acu te 2024 11:45A M Yariel Ryan MD Not available Not available Not available Follow Up 15 2024 10:00A M Yariel Ryan MD Not available Not available Not available Lab None recorded . Referral None recorded . Procedures None recorded . Surgeries None recorded . Imaging None recorded . Medication Orders None recorded . Patient TargetsNo targets recorded. Patient InstructionsNo instructions recorded. Reason for Referral None Reported. Problems Name Problem SNOMED Code Status Onset Date Resolution Date Notes Provider Name and Address Organization Details Recorded Time External hemorrhoids 70304378 Active 2023 Yariel Ryan MD [address], [place] [address], [place], [address], [facility] [employer] 4 09:24:50 Smoker 12020802 Active 2023 Yariel Ryan MD [address], [place], [address], [facility] [place] [facility] [employer] 4 09:26:35 Family history of diabetes mellitus 906486988 Active 2023 Yariel Ryan MD [address], [place], [address], [facility] [place] [facility] [employer] 4 09:40:03 Vitamin D deficiency 80798180 Active 2024 Yariel Ryan MD [address], [place], [address], [facility] [place] [facility] [employer] 5 12:18:55 Hyperlipide veda 08581316 Active 2024 Yariel Ryan MD [address], [place], [address], [employer] [facility] [employer] 5 12:19:27 Allergic contact dermatitis 227031359 Active 2024 Yariel Ryan MD [address], [place], [address], [employer] [facility] [employer] 5 12:24:31 Allergic rhinitis 78586979 Active 2024 Yariel Ryan MD [address], [place], [address], [employer] [facility] [employer] 5 12:25:32 Impacted cerumen of bilateral ears 1598798768932 108 Active 2024 Yariel Ryan MD [address], [place], [address], [employer] [facility] [employer] 5 12:27:58 Liver function test above reference range 941671363 Active 2024 Yariel Ryan MD [address], [place], [address], [place] [facility] [employer] 5 12:36:34 Right upper quadrant pain 062847224 Active 2024 Yariel Rayn MD [address], [place], [address], [employer] 5 12:56:33 Abdominal bloating 978975747 Active 2024 Yariel Ryan MD [address], [place], [address], [employer] 5 12:56:56 Indigestion 866903562 Active 2024 Yariel Ryan MD [address], [place], [address], [email or web address] 5 12:57:26 Burning chest pain Active 2024 Yariel Ryan MD [address], [place], [address], [email or web address] 5 13:03:03 Problem Notes None recorded. Procedures Surgical History Date Name Laterality Status Provider Name and Address Organization Details Recorded Time 5 Ear Irrigation completed Yariel Ryan MD [address], [place], [address], [email or web address] 03/19/2025 12:55:15 5 Smoking Cessation completed Yariel Ryan MD [address], [place], [address], [email or web address] 03/05/2025 12:06:44 4 Smoking Cessation completed MD Brenda Gaitan [address], [place], [address], [email or web address] 03/05/2024 09:27:07 Imaging Results None recorded. Procedure Notes None recorded. Medical Equipment None Reported. Allergies No known drug allergies Medications Name Sig Start Date Stop Date Status Note LastModified by Organization Details LastModified Time atorvastati n 10 mg tablet Take 1 tablet every day by oral route at bedtime for 90 days. 2024 active Not Available Not Available Not Avai lable Debrox 6.5 % ear drops INSTILL 4 DROPS INTO AFFECTED EAR(S) BY OTIC ROUTE 2 TIMES PER DAY 2024 active Not Available Not Available Not Avai lable topiramate 25 mg tablet 03/05 completed Not Available Not Available Not Available triamcinolo ne acetonide 0.1 % topical cream APPLY A THIN LAYER TO THE AFFECTED AREA(S) BY TOPICAL ROUTE 2 TIMES PER DAY 2024 active Not Available Not Available Not Avai lable Kenalog 40 mg/mL suspension for injection Take 40 mg by injection route for 1 day. 2024 active Not Available Not Available Not Avai lable hydrocortis one 2.5 % topical cream with perineal applicator APPLY A THIN LAYER TO THE AFFECTED AREA(S) BY TOPICAL ROUTE 2-3 TIMES DAILY NEEDED 2024 active Not Available Not Available Not Avai lable midodrine 2.5 mg tablet 03/05 completed Not Available Not Available Not Available ergocalcife rol (vitamin D2) 1,250 mcg (50,000 unit) capsule Take 1 capsule every week by oral route as directed for 90 days. 2024 active Not Available Not Available Not Avai lable fluticasone propionate 50 mcg/actuati on nasal spray,suspe nsion [place] 2 sprays every day by intranasa l route as directed for 90 days. 2024 active Not Available Not Available Not Avai lable loratadine 10 mg tablet Take 1 tablet every day by oral route as directed for 90 days. 2024 active Not Available Not Available Not Avai lable buprenorphi ne 2 mg-naloxone 0.5 mg sublingual tablet active Not Available Not Available Not Available Vitals Date Recorded Body height Body mass index (BMI) Body weight Body temperature Oxygen saturation Oxygen saturation in Arterial blood by Pulse oximetry Heart rate Systolic blood pressure Diastolic blood pressure Provider Name and Address Organization Details Last Updated DateTime 5 175.26 cm 25.9 kg/m2 75022.7 1 g 97.2 [degF] 95 % 95 % 95 /min 120 mm[Hg] 84 mm[Hg] Lauryn Farr RN [place] [facility] [employer] 5 12:49:24 Social History Question Answer Notes LastModified by Organization Details LastModified Time Tobacco Smoking Status Current Every Day Smoker Yariel Ryan MD [address], [place], [address], [place] [facility] 03/05/2025 12:22:36 What Is Your Level Of Caffeine Consumption? Occasional Two Cups Coffee In The Morning [email or web address] Information not available 03/05/2025 In The 14 Days Before Symptom Onset, Have You Had Close Contact With A Laboratory-confi rmed COVID-19 While That Case Was Ill? No Information not available 03/05/2024 In The 14 Days Before Symptom Onset, Have You Had Close Contact With A Person Who Is Under Investigation For COVID-19 While That Person Was Ill? No Information not available 03/05/2024 What Type Of Diet Are You Following? REGULAR Information not available 03/05/2024 What Is The Highest Grade Or Level Of School You Have Completed Or The Highest Degree You Have Received? [id number] Information not available 03/05/2024 Have There Been Any Changes To Your Family Or Social Situation? No Information not available 03/05/2024 What Is The Fluoride Status Of Your Home? Unknown Information not available 03/05/2024 Are There Any Guns Present In Your Home? No Information not available 03/05/2024 Where Do You Live? SingleLevelHouse Information not available 03/05/2024 What Is Your Current Pack Years? 10-19packyears [email or web address] Information not available 03/05/2025 Have You Ever Been Counseled For Unhealthy Alcohol Use? No Information not available 03/05/2024 Do You Have Any Pets? No Information not available 03/05/2024 Do You Use Protection During Sex? No Information not available 03/05/2024 What Is Your Relationship Status? Information not available 03/05/2024 Do You Use Your Seat Belt Or Car Seat Routinely? Yes Information not available 03/05/2024 Are You Sexually Active? Yes Information not available 03/05/2024 Do You Have Smoke And Carbon Monoxide Detectors In Your Home? Yes Information not available 03/05/2024 At What Age Did You Start Smoking Tobacco? 21 [email or web address] Information not available 03/05/2025 Are You Passively Exposed To Smoke? No Information not available 03/05/2024 Are There Any Smokers In Your House? No Information not available 03/05/2024 How Much Tobacco Do You Smoke? 1 PPD [email or web address] Information not available 03/05/2025 Do You Participate In Social Media? Yes Information not available 03/05/2024 Do You Use Sunscreen Routinely? Yes Information not available 03/05/2024 How Many Years Have You Smoked Tobacco? 20 [email or web address] Information not available 03/05/2025 Have You Recently Traveled Abroad? No Information not available 03/05/2024 Are You Currently In School? No Information not available 03/05/2024 Do You Have Any Dietary Restrictions? No Information not available 03/05/2024 How Many Years Have You Used E-cigarettes Or Vape? 6 [email or web address] Information not available 03/05/2025 Sex: Male Functional Status Question Answer Note LastModified by Organizat ion Details LastModified Time Do you or have you ever used any other forms of tobacco or nicotine? Yes [email or web address] Information not available 03/05/2025 What is your level of alcohol consumption? Occasional Information not available 03/05/2024 Do you or have you ever used smokeless tobacco? Never used smokeless tobacco [email or web address] Information not available 03/05/2025 Are you currently employed? Yes Information not available 03/05/2024 Do you or have you ever used e-cigarettes or vape? Current user of electronic cigarettes [email or web address] Information not available 03/05/2025 Mental Status Question Answer Note LastModified by Organization D etails LastModified Time Do you feel stressed (tense, restless, nervous, or anxious, or unable to sleep at night)? [id number] Information not available 03/05/2024 Family History Relationship Description Onset Age of this Age Resolved Age Notes LastModified by Organization Details LastModified Time Father No current problems or disability Not available 03/05 09:30:39 Mother No current problems or disability Not available 03/05 09:30:39 Notes:Pre Dm Medical History No medical history recorded. Past Encounters Encounter ID Performer Location Encounter Start Date Encounter Closed Date Diagnosis/Indication Diagnosis SNOMED-CT Code Diagnosis ICD10 Code Diagnosis Note [id number] Yariel Ryan MD [address] [address] 03/19/2025 12:18:11 03/19/2025 12:59:19 Family history of diabetes mellitus 140980981 Z83.3 Mom External hemorrhoids 239 60790 K64.4 Smoker 57161852 F17.200 Cig + Vaping Vitamin D deficiency 347 78925 E55.9 Hyperlipidemia 99156531 E78.5 Allergic c ontact dermatitis 136529405 L23.9 Allergic rhinitis 420665 04 J30.9 Impacted c erumen of bilateral ears 1502280044 790526 H61.23 Liver func tion test above reference range 937241128 R79.89 [id number] Yariel Ryan MD [address] [address] 04/09/2025 12:35:50 04/09/2025 12:59:01 Right upper quadrant pain 757360712 R10.11 Abdominal bloating 58652 9008 R14.0 Indigestion 734433557 K3 0 Burning chest pain 53233 24343 R07.89 Health Concerns Section Related Observation LastModified by Organization Detai ls LastModified Time None Recorded Concern Status LastModified by Organization Details LastModified Time None Recorded Payers Encounter Date Sequence Insurance Name Policy Number Policy [place] Covered Member ID [place] Member ID Guarantor Name 04/09/2025 1 [facility] Medhat Khan [id number] Medhat Khan Notes Date Note Type Note Provider Name and Address Organization Details Recorded Time 04/09/2025 text/html ACV: C/o RUQ area pain, nausea, burping, bloating for last 4 days. Denies any fever/chills/c/ d/blood in stool. Pt denies any known sick contact/unusual outside food intake. Pt has an order for US abdo, but they can not do it until next week Wed. Pt will be driving to [place] on this weekend. Yariel Ryan MD [address] [place], [place] [address], [facility] [address], [place], [address], [place] [facility] 04/09/2025 13:03:43
--- OUTSIDE RECORDS SUMMARY | 2025-04-09 12:13 | XMS_ITS | Data Portability ---
Author Organization [place] [facility], Main Office Address [address] [place] [id number] Care Team Providers Care Whiskey Proof Reader Name Role Phone YARIEL RYAN Primary Care Provider Assessment Encounter Date Assessment Date Assessment LastModified by Organization Details LastModified Time 03/13/2024 03/13/2024 external hemorrhoids, symptomatic. Options discussed patient. We will consider surgical removal at this point. Patient will discuss with family and call us. Risks and benefits of the surgery were discussed with the risks include bleeding infection incontinence [email or web address] Not available 03/13/2024 11:18:36 03/05/2025 03/05/2025 44 yo M with - WELL ADULT VISIT - B/L EAR WAX - ALLERGIC DERMATITIS - ALLERGIC RHINITIS - HLD - VIT D DEFICIENCY - HEMORRHOIDS - SMOKER - FH OF DM (Mom) Annual labs: 03/13/24. D/w pt about his findings, recent labs and further plan of care. Will do routine labs. Pt declined for cxr. Meds as directed. Routine skin care explained. Diet and exercise explained in detail. Encouraged pt to cut down and quit smoking. Cont f/u with Surg as per schedule. Cont f/u with Ophtho as per schedule. HM: Flu - Pt declined. Tdap - Pt to find out. F/u in 2-3 weeks. B/l ear flushing on next visit. Annual labs in 03/14. Not available 03/05/2025 12:39:03 03/19/2025 03/19/2025 44 yo M with - B/L EAR WAX; s/p flushing today - ALLERGIC DERMATITIS, improved - ALLERGIC RHINITIS, improved - ELEVATED LFTs, new - HLD, uncontrolled - VIT D DEFICIENCY - HEMORRHOIDS - SMOKER - FH OF DM (Mom) Annual labs: 03/05/25. Annual labs: 03/13/24. D/w pt about his findings, recent labs and further plan of care. Pt did well with ear flushing, no issues. Meds as directed. Risks Vs benefits of Aspirin 81mg po QOD with food explained. Pt agreed. Routine skin care explained. Diet and exercise explained in detail. Encouraged pt to cut down and quit smoking & alcohol. Cont f/u with Surg as per schedule. Cont f/u with Ophtho as per schedule. Pt declined for cxr. HM: Flu - Pt declined. Tdap - Pt to find out. F/u in 3 months. Lipids, LFT, hepatitis panel, US before next visit. Annual labs in 03/14. [email or web address] Not available 03/19/2025 12:57:39 04/09/2025 04/09/2025 D/w pt about his findings and further options for this. Answered all questions for pt. Advised pt to get checked out in ED for further evaluation. Pt agreed. Pt wants to drive by himself. F/u as per ED MD's recommendations . [email or web address] Not available 04/09/2025 13:03:35 Plan of Treatment Reminders Order Date Submit Date Provider Last Modified By Organization Details Last Modified Time Details Appointments Sick/Acut e 2024 11:45A Prince Ryan MD Not available Not available Not available Follow Up 15 2024 10:00A Prince Ryan MD Not available Not available Not available Lab hepatic function panel, serum 2024 025 [email or web address] [facility] (Lab), [address] [place], [address], 03/19/2025 12:49:29 hepatitis panel (A+B+C), acute, serum 2024 025 [email or web address] [facility] (Lab), [address] [place], [address], 03/26/2025 11:40:18 lipid panel, serum 2024 025 [email or web address] [facility] (Lab), [address] [place], [address], 03/19/2025 12:49:29 CMP, serum or plasma [address] (Lab), [address] [place], [address], 03/05/2025 14:18:11 CBC w/ auto diff 2024 025 [email or web address] (Lab), [address] [place], [address], 03/05/2025 19:29:48 lipid panel, blood [address] (Lab), [address] [place], [address], 03/17/2025 14:42:44 TSH, serum, reflex free T4 [address] (Lab), [address] [place], [address], 03/12/2025 16:38:47 PSA, serum or plasma [address] (Lab), [address] [place], [address], 03/12/2025 16:38:47 urinalysi s complete, reflex culture [address] (Lab), [address] [place], [address], 03/05/2025 14:18:53 glycohemo globin, total, blood 2024 025 [email or web address] (Lab), [address] [place], [address], 03/05/2025 20:19:20 vitamin D, 25-hydrox y, total, serum 2024 025 [email or web address] [facility] ([facility]), [address] [place], [address], 03/12/2025 16:38:48 Referral None recorded. Procedures None recorded. Surgeries None recorded. Imaging US, abdomen, limited - US Liver, GB, pancrease [email or web address] [place] [address] Imaging Center, [address] [facility] [address], [place], [address], 03/26/2025 14:08:46 Medication Orders fluticaso ne propionat e 50 mcg/actua tion nasal spray,norberto pension 2024 025 [facility], [address] [place] [address], [id number], 03/19/2025 12:49:39 loratadin e 10 mg tablet 2024 025 [facility], [address] [place] [address], [id number], 03/19/2025 12:49:38 ergocalci ferol (vitamin D2) 1,250 mcg (50,000 unit) capsule 2024 025 [facility], [address] [place] [address], [id number], 03/19/2025 12:49:40 atorvasta tin 10 mg tablet 2024 025 [facility], [address] [place] [address], [id number], 03/19/2025 12:49:40 fluticaso ne propionat e 50 mcg/actua tion nasal spray,norberto pension 2024 025 [facility], [address] [place] [address], [id number], 03/05/2025 12:26:33 loratadin e 10 mg tablet 2024 025 [facility], [address] [place] [address], [place], [address], 03/05/2025 12:26:34 Kenalog 40 mg/mL suspensio n for injection 2024 [email or web address] Not available 03/05/2025 13:01:47 Debrox 6.5 % ear drops 2024 [facility], [address] [place] [address], [place], [address], 03/05/2025 12:29:04 triamcino lone acetonide 0.1 % topical cream 2024 025 [facility], [address] [place] [address], [place], [address], 03/05/2025 12:26:33 hydrocort isone 2.5 % topical cream with perineal applicato r 2024 025 [facility], [address] [place] [address], [place], [address], 03/05/2025 12:39:50 Patient TargetsNo targets recorded. Patient Instructions Encounter Date Encounter Id Patient Instructions Last Modified By Organization Details Last Modified Time 03/05/2025 [id number] high cholesterol : care instructions [email or web address] Not available 03/05/2025 12:26:29 hemorrhoids: car e instructions [email or web address] Not available 03/05/2025 12:26:29 03/19/2025 [id number] hemorrhoids: car e instructions [email or web address] Not available 03/19/2025 12:49:29 high cholesterol : care instructions Not available 03/19/2025 12:49:28 Reason for Referral None Reported. Results Created Date Observation Date Name Description Value Unit Range Abnormal Flag Note LastModifiedBy Organization Detail LastModifiedTime 03/13/20 24 03/13/2024 CBC/C OMPLE TE BLD COUNT W/DIF F white blood cells 4.0 x10'3 /uL 4.2-10 .8 low Not Available [facility] (Lab) [address] [place], [address], 03/13/2024 14:06:06 03/13/20 24 03/13/2024 CBC/C OMPLE TE BLD COUNT W/DIF F red blood cells 4.85 x10'6 /uL 4.10-5 .80 Not Available [facility] (Lab) [address] [place], [address], 03/13/2024 14:06:06 03/13/20 24 03/13/2024 CBC/C OMPLE TE BLD COUNT W/DIF F hemoglobin 15.8 g/dL 13.2-1 7.0 Not Available [facility] (Lab) [address] [place], [address], 03/13/2024 14:06:06 03/13/20 24 03/13/2024 CBC/C OMPLE TE BLD COUNT W/DIF F hematocrit 45.1 % 39.3-5 0.0 Not Available [facility] (Lab) [address] [place], [address], 03/13/2024 14:06:06 03/13/20 24 03/13/2024 CBC/C OMPLE TE BLD COUNT W/DIF F mean red cell volume 93.0 fL 80.0-9 7.0 Not Available [facility] (Lab) [address] [place], [address], 03/13/2024 14:06:06 03/13/20 24 03/13/2024 CBC/C OMPLE TE BLD COUNT W/DIF F mean red cell hemoglobin 32.6 pg 27.0-3 3.0 Not Available [facility] (Lab) [address] [place], [address], 03/13/2024 14:06:06 03/13/20 24 03/13/2024 CBC/C OMPLE TE BLD COUNT W/DIF F mean RBC HGB concentratio n 35.0 g/dL 31.0-3 6.0 Not Available [facility] (Lab) [address] [place], [address], 03/13/2024 14:06:06 03/13/20 24 03/13/2024 CBC/C OMPLE TE BLD COUNT W/DIF F red cell distribution width 12.4 % 11.8-1 5.5 Not Available [facility] (Lab) [address] [place], [address], 03/13/2024 14:06:06 03/13/20 24 03/13/2024 CBC/C OMPLE TE BLD COUNT W/DIF F platelets 199 x10'3 /uL 150-40 0 Not Available [facility] (Lab) [address] [place], [address], 03/13/2024 14:06:06 03/13/20 24 03/13/2024 CBC/C OMPLE TE BLD COUNT W/DIF F mean platelet volume 9.3 fL 9.0-12 .4 Not Available [facility] (Lab) [address] [place], [address], 03/13/2024 14:06:06 03/13/20 24 03/13/2024 CBC/C OMPLE TE BLD COUNT W/DIF F neutrophils 53.9 % 39.0-7 2.0 Not Available [facility] (Lab) [address] [place], [address], 03/13/2024 14:06:06 03/13/20 24 03/13/2024 CBC/C OMPLE TE BLD COUNT W/DIF F lymphocytes 34.2 % 16.0-4 7.0 Not Available [facility] (Lab) [address] [place], [address], 03/13/2024 14:06:06 03/13/20 24 03/13/2024 CBC/C OMPLE TE BLD COUNT W/DIF F monocytes 7.1 % 5.0-12 .0 Not Available [facility] (Lab) [address] [place], [address], 03/13/2024 14:06:06 03/13/20 24 03/13/2024 CBC/C OMPLE TE BLD COUNT W/DIF F eosinophils 3.5 % 1.0-7. 0 Not Available [facility] (Lab) [address] [place], [address], 03/13/2024 14:06:06 03/13/20 24 03/13/2024 CBC/C OMPLE TE BLD COUNT W/DIF F basophils 0.8 % 0.0-2. 0 Not Available [facility] (Lab) [address] [place], [address], 03/13/2024 14:06:06 03/13/20 24 03/13/2024 CBC/C OMPLE TE BLD COUNT W/DIF F immature granulocytes 0.5 % 0.00-0 .50 Not Available [facility] (Lab) [address] [place], [address], 03/13/2024 14:06:06 03/13/20 24 03/13/2024 CBC/C OMPLE TE BLD COUNT W/DIF F neutrophils, absolute count 2.13 x10'3 /uL 1.5-8. 0 Not Available [facility] (Lab) [address] [place], [address], 03/13/2024 14:06:06 03/13/20 24 03/13/2024 CBC/C OMPLE TE BLD COUNT W/DIF F lymphocytes, absolute count 1.35 x10'3 /uL 1.07-3 .43 Not Available [facility] (Lab) [address] [place], [address], 03/13/2024 14:06:06 03/13/20 24 03/13/2024 CBC/C OMPLE TE BLD COUNT W/DIF F monocytes, absolute count 0.28 x10'3 /uL 0.29-0 .99 low Not Available [facility] (Lab) [address] [place], [address], 03/13/2024 14:06:06 03/13/20 24 03/13/2024 CBC/C OMPLE TE BLD COUNT W/DIF F eosinophils, absolute count 0.14 x10'3 /uL 0.02-0 .53 Not Available [facility] (Lab) [address] [place], [address], 03/13/2024 14:06:06 03/13/20 24 03/13/2024 CBC/C OMPLE TE BLD COUNT W/DIF F basophils, absolute count 0.03 x10'3 /uL 0.01-0 .08 Not Available [facility] (Lab) [address] [place], [address], 03/13/2024 14:06:06 03/13/20 24 03/13/2024 CBC/C OMPLE TE BLD COUNT W/DIF F immature granulocytes ,absolute 0.02 x10'3 /uL 0.00-0 .05 Not Available [facility] (Lab) [address] [place], [address], 03/13/2024 14:06:06 03/13/20 24 03/13/2024 CBC/C OMPLE TE BLD COUNT W/DIF F nucleated red blood cells 0.0 % -0 Not Available [facility] (Lab) [address] [place], [address], 03/13/2024 14:06:06 03/13/20 24 03/13/2024 CBC/C OMPLE TE BLD COUNT W/DIF F NRBC# 0.00 x10'3 /uL Not Available [facility] (Lab) [address] [facility] [place] [place], [address], 03/13/2024 14:06:06 03/13/20 24 03/13/2024 COMPR EHENS MELVIN METAB OLIC PANEL sodium 139 mmol/ L 137-14 5 Not Available [facility] (Lab) [address] [facility] [place], [address], 03/13/2024 14:19:50 03/13/20 24 03/13/2024 COMPR EHENS MELVIN METAB OLIC PANEL potassium 4.5 mmol/ L 3.5-5. 1 Not Available [facility] (Lab) [address] [place], [address], 03/13/2024 14:19:50 03/13/20 24 03/13/2024 COMPR EHENS MELVIN METAB OLIC PANEL chloride 103 mmol/ L 98-107 Not Available [facility] (Lab) [address] [place], [address], 03/13/2024 14:19:50 03/13/20 24 03/13/2024 COMPR EHENS MELVIN METAB OLIC PANEL carbon dioxide 29 mmol/ L 22-30 Not Available [facility] (Lab) [address] [place], [address], 03/13/2024 14:19:50 03/13/20 24 03/13/2024 COMPR EHENS MELVIN METAB OLIC PANEL anion gap 11.5 mmol/ L 14-22 low Not Available [facility] (Lab) [address] [place], [address], 03/13/2024 14:19:50 03/13/20 24 03/13/2024 COMPR EHENS MELIVN METAB OLIC PANEL glucose 89 mg/dL 70-99 Not Available [facility] (Lab) [address] [place], [address], 03/13/2024 14:19:50 03/13/20 24 03/13/2024 COMPR EHENS MELVIN METAB OLIC PANEL BUN 11 mg/dL 8-19 Not Available [facility] (Lab) [address] [place], [address], 03/13/2024 14:19:50 03/13/20 24 03/13/2024 COMPR EHENS MELVIN METAB OLIC PANEL creatinine 0.95 mg/dL 0.66-1 .25 Not Available [facility] (Lab) [address] [place], [address], 03/13/2024 14:19:50 03/13/20 24 03/13/2024 COMPR EHENS MELVIN METAB OLIC PANEL GFR >60 Refer ence Range : Daisetta ge GFR Healt hy Adult : >60 mL/mi n/1.7 3 m2 Chron ic Kidne y Disea se: 15-60 mL/mi n/1.7 3 m2 Kidne y Failu re: <15/m L/min /1.73 m2 www.n iddk. nih.g ov The MDRD study equat ion has not been valid ated in child lor <18 years of age; pregn ant women ; the elder ly >85 years of age; or in some racia l or ethni c subgr oups, such as Parag nics. Outsi de the valid ated asia eters , estim ated GFR is less accur ate, requi ring clini corinne judgm ent on a case- by-ca se basis . Clini corinne inter preta tion for other races and ages must be made by the clini klaudia. The MDRD study equat ion has not been valid ated for the evalu ation of serum creat inine relat ed to nutri kaya l statu s or medic ation usage . For perso ns <18 years of age, a pedia tric GFR calcu lator is avail able on the F websi te: https ://guillermina w.wilber camejoy.o rg/pr ofess ional s/kdo qi/gf r_cal culat or Not Available [facility] (Lab) [address] [place], [address], 03/13/2024 14:19:50 03/13/20 24 03/13/2024 COMPR EHENS MELVIN METAB OLIC PANEL alkaline phosphatase 55 U/L 38-126 Not Available [facility] (Lab) [address] [place], [address], 03/13/2024 14:19:50 03/13/20 24 03/13/2024 COMPR EHENS MELVIN METAB OLIC PANEL alanine aminotransfe rase 50 U/L 0-50 Not Available [facility] (Lab) [address] [facility] [place], [address], 03/13/2024 14:19:50 03/13/20 24 03/13/2024 COMPR EHENS MELVIN METAB OLIC PANEL aspartate aminotransfe rase 41 U/L 15-46 Not Available [facility] (Lab) [address] [place], [address], 03/13/2024 14:19:50 03/13/20 24 03/13/2024 COMPR EHENS MELVIN METAB OLIC PANEL bilirubin, total 1.00 mg/dL 0.20-1 .30 Not Available [facility] (Lab) [address] [place], [address], 03/13/2024 14:19:50 03/13/20 24 03/13/2024 COMPR EHENS MELVIN METAB OLIC PANEL calcium 9.3 mg/dL 8.4-10 .2 Not Available [facility] (Lab) [address] [place], [address], 03/13/2024 14:19:50 03/13/20 24 03/13/2024 COMPR EHENS MELVIN METAB OLIC PANEL total protein 6.4 g/dL 6.3-8. 2 Not Available [facility] (Lab) [address] [place], [address], 03/13/2024 14:19:50 03/13/20 24 03/13/2024 COMPR EHENS MELVIN METAB OLIC PANEL albumin 4.4 g/dL 3.4-5. 0 Not Available [facility] (Lab) [address] [place], [address], 03/13/2024 14:19:50 03/13/20 24 03/13/2024 COMPR EHENS MELVIN METAB OLIC PANEL globulin 2.0 g/dL 2.6-4. 2 low Not Available [facility] (Lab) [address] [place], [address], 03/13/2024 14:19:50 03/13/20 24 03/13/2024 COMPR EHENS MELVIN METAB OLIC PANEL A/G ratio 2.2 ratio 1.0-2. 0 high Not Available [facility] (Lab) [address] [place], [address], 03/13/2024 14:19:50 03/13/20 24 03/13/2024 LIPID PANEL cholesterol 210 mg/dL 140-19 9 high NIH BANDAR NSUS RECOM MENDA TION FOR GIGI STERO L: ADULT CHILD LOW RISK: <200 <170 BORDE RLINE : <200- 239 ----- HIGH RISK: >240 >200 Not Available [facility] (Lab) [address] [place], [address], 03/13/2024 14:19:53 03/13/20 24 03/13/2024 LIPID PANEL triglyceride s 82 mg/dL 0-150 NIH BANDAR NSUS REPOR T RECOM MENDA TION FOR TRIGL YCERI AARON: ADULT CHILD LOW RISK: <150 ----- BODER LINE: 150-1 99 ----- HIGH RISK: >200 ----- Not Available [facility] (Lab) [address] [place], [address], 03/13/2024 14:19:53 03/13/20 24 03/13/2024 LIPID PANEL HDL cholesterol 73 mg/dL 40- Not Available [facility] (Lab) [address] [place], [address], 03/13/2024 14:19:53 03/13/20 24 03/13/2024 LIPID PANEL LDL cholesterol, calculated 121 mg/dL 0-130 NIH BANDAR NSUS REPOR T RECOM MENDA TIONS FOR LDL: ADULT CHILD LOW RISK <130 <110 (OPTI MAL LDL) <100 ----- BORDE RLINE : 130-1 59 ----- HIGH RISK: >160 >130 A TRIGL YCERI DE RESUL T >400 INVAL IDATE S THE CALCU LATIO N FOR LDL FRACT IONAT ION - THE LDL RESUL T WILL NOT BE REPOR XANDER. Not Available [facility] (Lab) [address] [place], [address], 03/13/2024 14:19:53 03/13/20 24 03/13/2024 VITAM IN D 25-HY DROXY [id number] 14.3 NG/mL 30-100 low Vitam in D Statu s: Defic ient: <20 ng/mL Insuf ficie nt: 20-29 ng/mL Suffi cient : 30-10 0 ng/mL Not Available [facility] (Lab) [address] [place], [address], 03/13/2024 14:33:39 03/13/20 24 03/13/2024 T4 FREE free T4 1.11 NG/dL 0.78-2 .19 Not Available [facility] (Lab) [address] [place], [address], 03/13/2024 14:34:19 03/13/20 24 03/13/2024 URINA LYSIS COMPL ETE/I RIS W/RFX color YELLOW Not Available [facility] (Lab) [address] [place], [address], 03/13/2024 14:53:10 03/13/20 24 03/13/2024 URINA LYSIS COMPL ETE/I RIS W/RFX appear CLEAR Not Available [facility] (Lab) [address] [place], [address], 03/13/2024 14:53:10 03/13/20 24 03/13/2024 URINA LYSIS COMPL ETE/I RIS W/RFX specific gravity 1.019 1.001- 1.030 Not Available [facility] (Lab) [address] [place], [address], 03/13/2024 14:53:10 03/13/20 24 03/13/2024 URINA LYSIS COMPL ETE/I RIS W/RFX pH 6.5 pH_un its 5.0-9. 0 Not Available [facility] (Lab) [address] [place], [address], 03/13/2024 14:53:10 03/13/20 24 03/13/2024 URINA LYSIS COMPL ETE/I RIS W/RFX leukocytes NEGATI VE marj/u L negati ve- Not Available [facility] (Lab) [address] [place], [address], 03/13/2024 14:53:10 03/13/20 24 03/13/2024 URINA LYSIS COMPL ETE/I RIS W/RFX nitrite NEGATI VE negati ve- Not Available [facility] (Lab) [address] [place], [address], 03/13/2024 14:53:10 03/13/20 24 03/13/2024 URINA LYSIS COMPL ETE/I RIS W/RFX protein NEGATI VE mg/dL negati ve- Not Available [facility] (Lab) [address] [place], [address], 03/13/2024 14:53:10 03/13/20 24 03/13/2024 URINA LYSIS COMPL ETE/I RIS W/RFX glucose NORMAL mg/dL normal - Not Available [facility] (Lab) [address] [place], [address], 03/13/2024 14:53:10 03/13/20 24 03/13/2024 URINA LYSIS COMPL ETE/I RIS W/RFX ketones NEGATI VE mg/dL negati ve- Not Available [facility] (Lab) [address] [place], [address], 03/13/2024 14:53:10 03/13/20 24 03/13/2024 URINA LYSIS COMPL ETE/I RIS W/RFX urobilinogen NORMAL mg/dL normal - Not Available [facility] (Lab) [address] [place], [address], 03/13/2024 14:53:10 03/13/20 24 03/13/2024 URINA LYSIS COMPL ETE/I RIS W/RFX bilirubin NEGATI VE mg/dL negati ve- Not Available [facility] (Lab) [address] [place], [address], 03/13/2024 14:53:10 03/13/20 24 03/13/2024 URINA LYSIS COMPL ETE/I RIS W/RFX blood NEGATI VE mg/dL negati ve- Not Available [facility] (Lab) [address] [place], [address], 03/13/2024 14:53:10 03/13/20 24 03/13/2024 URINA LYSIS COMPL ETE/I RIS W/RFX white blood cells 0-8 /i??h pfi?? 0-8 Not Available [facility] (Lab) [address] [place], [address], 03/13/2024 14:53:10 03/13/20 24 03/13/2024 URINA LYSIS COMPL ETE/I RIS W/RFX red blood cells 0-4 /i??h pfi?? 0-4 Not Available [facility] (Lab) [address] [place], [address], 03/13/2024 14:53:10 03/13/20 24 03/13/2024 URINA LYSIS COMPL ETE/I RIS W/RFX bacteria NONE Not Available [facility] (Lab) [address] [place], [address], 03/13/2024 14:53:10 03/13/20 24 03/13/2024 URINA LYSIS COMPL ETE/I RIS W/RFX mucous OCCASI ONAL /i??l pfi?? abnormal Not Available [facility] (Lab) [address] [place], [address], 03/13/2024 14:53:10 03/13/20 24 03/13/2024 URINA LYSIS COMPL ETE/I RIS W/RFX squamous epithelial NONE /i??l pfi?? abnormal Not Available [facility] (Lab) [address] [place], [address], 03/13/2024 14:53:10 03/13/20 24 03/13/2024 TSH thyroid-stim ulating hormone 0.855 uIU/m L 0.465- 4.680 Not Available [facility] (Lab) [address] [place], [address], 03/13/2024 15:15:58 03/13/20 24 03/13/2024 PSA, TOTAL PSA, total 1.83 NG/mL 0.00-4 .00 Not Available [facility] (Lab) [address] [place], [address], 03/13/2024 15:16:10 03/13/20 24 03/13/2024 HEMOG LOBIN A1C HA1C 4.8 % 4.0-6. 0 Diabe kranthi Scree sincere Crite glenn: <5.7% Consi stent with absen ce of diabe kranthi 5.7-6 .4% Consi stent with incre ased risk for diabe kranthi (pred iabet es) >OR=6 .5% Consi stent with diabe kranthi REFER ENCE: Diabe kranthi Care 2016, 39(Cardona ppl.1 ):s13 -s22 Not Available [facility] (Lab) [address] [place], [address], 03/13/2024 21:46:16 03/05/20 25 03/05/2025 CBC/C OMPLE TE BLD COUNT W/DIF F white blood cells 4.1 x10'3 /uL 4.2-10 .8 low Not Available [facility] (Lab) [address] [place], [address], 03/05/2025 19:29:48 03/05/20 25 03/05/2025 CBC/C OMPLE TE BLD COUNT W/DIF F red blood cells 5.05 x10'6 /uL 4.10-5 .80 Not Available [facility] (Lab) [address] [place], [address], 03/05/2025 19:29:48 03/05/20 25 03/05/2025 CBC/C OMPLE TE BLD COUNT W/DIF F hemoglobin 16.4 g/dL 13.2-1 7.0 Not Available [facility] (Lab) [address] [place], [address], 03/05/2025 19:29:48 03/05/20 25 03/05/2025 CBC/C OMPLE TE BLD COUNT W/DIF F hematocrit 47.3 % 39.3-5 0.0 Not Available [facility] (Lab) [address] [place], [address], 03/05/2025 19:29:48 03/05/20 25 03/05/2025 CBC/C OMPLE TE BLD COUNT W/DIF F mean red cell volume 93.7 fL 80.0-9 7.0 Not Available [facility] (Lab) [address] [place], [address], 03/05/2025 19:29:48 03/05/20 25 03/05/2025 CBC/C OMPLE TE BLD COUNT W/DIF F mean red cell hemoglobin 32.5 pg 27.0-3 3.0 Not Available [facility] (Lab) [address] [place], [address], 03/05/2025 19:29:48 03/05/20 25 03/05/2025 CBC/C OMPLE TE BLD COUNT W/DIF F mean RBC HGB concentratio n 34.7 g/dL 31.0-3 6.0 Not Available [facility] (Lab) [address] [place], [address], 03/05/2025 19:29:48 03/05/20 25 03/05/2025 CBC/C OMPLE TE BLD COUNT W/DIF F red cell distribution width 12.0 % 11.8-1 5.5 Not Available [facility] (Lab) [address] [place], [address], 03/05/2025 19:29:48 03/05/20 25 03/05/2025 CBC/C OMPLE TE BLD COUNT W/DIF F platelets 218 x10'3 /uL 150-40 0 Not Available [facility] (Lab) [address] [place], [address], 03/05/2025 19:29:48 03/05/20 25 03/05/2025 CBC/C OMPLE TE BLD COUNT W/DIF F mean platelet volume 9.3 fL 9.0-12 .4 Not Available [facility] (Lab) [address] [place], [address], 03/05/2025 19:29:48 03/05/20 25 03/05/2025 CBC/C OMPLE TE BLD COUNT W/DIF F neutrophils 51.2 % 39.0-7 2.0 Not Available [facility] (Lab) [address] [place], [address], 03/05/2025 19:29:48 03/05/20 25 03/05/2025 CBC/C OMPLE TE BLD COUNT W/DIF F lymphocytes 37.3 % 16.0-4 7.0 Not Available [facility] (Lab) [address] [place], [address], 03/05/2025 19:29:48 03/05/20 25 03/05/2025 CBC/C OMPLE TE BLD COUNT W/DIF F monocytes 8.1 % 5.0-12 .0 Not Available [facility] (Lab) [address] [place], [address], 03/05/2025 19:29:48 03/05/20 25 03/05/2025 CBC/C OMPLE TE BLD COUNT W/DIF F eosinophils 2.2 % 1.0-7. 0 Not Available [facility] (Lab) [address] [place], [address], 03/05/2025 19:29:48 03/05/20 25 03/05/2025 CBC/C OMPLE TE BLD COUNT W/DIF F basophils 0.5 % 0.0-2. 0 Not Available [facility] (Lab) [address] [place], [address], 03/05/2025 19:29:48 03/05/20 25 03/05/2025 CBC/C OMPLE TE BLD COUNT W/DIF F immature granulocytes 0.7 % 0.00-0 .50 high Not Available [facility] (Lab) [address] [place], [address], 03/05/2025 19:29:48 03/05/20 25 03/05/2025 CBC/C OMPLE TE BLD COUNT W/DIF F neutrophils, absolute count 2.09 x10'3 /uL 1.5-8. 0 Not Available [facility] (Lab) [address] [place], [address], 03/05/2025 19:29:48 03/05/20 25 03/05/2025 CBC/C OMPLE TE BLD COUNT W/DIF F lymphocytes, absolute count 1.52 x10'3 /uL 1.07-3 .43 Not Available [facility] (Lab) [address] [place], [address], 03/05/2025 19:29:48 03/05/20 25 03/05/2025 CBC/C OMPLE TE BLD COUNT W/DIF F monocytes, absolute count 0.33 x10'3 /uL 0.29-0 .99 Not Available [facility] (Lab) [address] [place], [address], 03/05/2025 19:29:48 03/05/20 25 03/05/2025 CBC/C OMPLE TE BLD COUNT W/DIF F eosinophils, absolute count 0.09 x10'3 /uL 0.02-0 .53 Not Available [facility] (Lab) [address] [place], [address], 03/05/2025 19:29:48 03/05/20 25 03/05/2025 CBC/C OMPLE TE BLD COUNT W/DIF F basophils, absolute count 0.02 x10'3 /uL 0.01-0 .08 Not Available [facility] (Lab) [address] [place], [address], 03/05/2025 19:29:48 03/05/20 25 03/05/2025 CBC/C OMPLE TE BLD COUNT W/DIF F immature granulocytes ,absolute 0.03 x10'3 /uL 0.00-0 .05 Not Available [facility] (Lab) [address] [place], [address], 03/05/2025 19:29:48 03/05/20 25 03/05/2025 CBC/C OMPLE TE BLD COUNT W/DIF F nucleated red blood cells 0.0 % -0 Not Available [facility] (Lab) [address] [place], [address], 03/05/2025 19:29:48 03/05/20 25 03/05/2025 CBC/C OMPLE TE BLD COUNT W/DIF F NRBC# 0.00 x10'3 /uL Not Available [facility] (Lab) [address] [place], [address], 03/05/2025 19:29:48 03/05/20 25 03/05/2025 COMPR EHENS MELVIN METAB OLIC PANEL sodium 137 mmol/ L 137-14 5 Not Available [facility] (Lab) [address] [place], [address], 03/05/2025 19:54:43 03/05/20 25 03/05/2025 COMPR EHENS MELVIN METAB OLIC PANEL potassium 4.2 mmol/ L 3.5-5. 1 Not Available [facility] (Lab) [address] [place], [address], 03/05/2025 19:54:43 03/05/20 25 03/05/2025 COMPR EHENS MELVIN METAB OLIC PANEL chloride 102 mmol/ L 98-107 Not Available [facility] (Lab) [address] [place], [address], 03/05/2025 19:54:43 03/05/20 25 03/05/2025 COMPR EHENS MELVIN METAB OLIC PANEL carbon dioxide 28 mmol/ L 22-30 Not Available [facility] (Lab) [address] [place], [address], 03/05/2025 19:54:43 03/05/20 25 03/05/2025 COMPR EHENS MELVIN METAB OLIC PANEL anion gap 11.2 mmol/ L 14-22 low Not Available [facility] (Lab) [address] [place], [address], 03/05/2025 19:54:43 03/05/20 25 03/05/2025 COMPR EHENS MELVIN METAB OLIC PANEL glucose 95 mg/dL 70-99 Not Available [facility] (Lab) [address] [place], [address], 03/05/2025 19:54:43 03/05/20 25 03/05/2025 COMPR EHENS MELVIN METAB OLIC PANEL BUN 10 mg/dL 8-19 Not Available [facility] (Lab) [address] [place], [address], 03/05/2025 19:54:43 03/05/20 25 03/05/2025 COMPR EHENS MELVIN METAB OLIC PANEL creatinine 0.85 mg/dL 0.66-1 .25 Not Available [facility] (Lab) [address] [place], [address], 03/05/2025 19:54:43 03/05/20 25 03/05/2025 COMPR EHENS MELVIN METAB OLIC PANEL GFR >60 Refer ence Range : Daisetta ge GFR Healt hy Adult : >60 mL/mi n/1.7 3 m2 Chron ic Kidne y Disea se: 15-60 mL/mi n/1.7 3 m2 Kidne y Failu re: <15/m L/min /1.73 m2 www.n iddk. nih.g ov The MDRD study equat ion has not been valid ated in child lor <18 years of age; pregn ant women ; the elder ly >85 years of age; or in some racia l or ethni c subgr oups, such as Hispa nics. Outsi de the valid ated asia eters , estim ated GFR is less accur ate, requi ring clini corinne judgm ent on a case- by-ca se basis . Clini corinne inter preta tion for other races and ages must be made by the clini klaudia. The MDRD study equat ion has not been valid ated for the evalu ation of serum creat inine relat ed to nutri kaya l statu s or medic ation usage . For perso ns <18 years of age, a pedia tric GFR manuelau kassie is avail able on the [facility] websi te: https :[email or web address] pineda.wilber rose.o kell/pr ofess ional s/kdo qi/gf r_cal culat or Not Available [facility] (Lab) [address] [place], [address], 03/05/2025 19:54:43 03/05/20 25 03/05/2025 COMPR EHENS MELVIN METAB OLIC PANEL alkaline phosphatase 59 U/L 38-126 Not Available [facility] (Lab) [address] [place], [address], 03/05/2025 19:54:43 03/05/20 25 03/05/2025 COMPR EHENS MELVIN METAB OLIC PANEL alanine aminotransfe rase 60 U/L 0-50 high Not Available [facility] (Lab) [address] [place], [address], 03/05/2025 19:54:43 03/05/20 25 03/05/2025 COMPR EHENS MELVIN METAB OLIC PANEL aspartate aminotransfe rase 51 U/L 15-46 high Not Available [facility] (Lab) [address] [place], [address], 03/05/2025 19:54:43 03/05/20 25 03/05/2025 COMPR EHENS MELVIN METAB OLIC PANEL bilirubin, total 1.10 mg/dL 0.20-1 .30 Not Available [facility] (Lab) [address] [place], [address], 03/05/2025 19:54:43 03/05/20 25 03/05/2025 COMPR EHENS MELVIN METAB OLIC PANEL calcium 10.0 mg/dL 8.4-10 .2 Not Available [facility] (Lab) [address] [place], [address], 03/05/2025 19:54:43 03/05/20 25 03/05/2025 COMPR EHENS MELVIN METAB OLIC PANEL total protein 7.0 g/dL 6.3-8. 2 Not Available [facility] (Lab) [address] [place], [address], 03/05/2025 19:54:43 03/05/20 25 03/05/2025 COMPR EHENS MELVIN METAB OLIC PANEL albumin 4.8 g/dL 3.4-5. 0 Not Available [facility] (Lab) [address] [place], [address], 03/05/2025 19:54:43 03/05/20 25 03/05/2025 COMPR EHENS MELVIN METAB OLIC PANEL globulin 2.2 g/dL 2.6-4. 2 low Not Available [facility] (Lab) [address] [place], [address], 03/05/2025 19:54:43 03/05/20 25 03/05/2025 COMPR EHENS MELVIN METAB OLIC PANEL A/G ratio 2.2 ratio 1.0-2. 0 high Not Available [facility] (Lab) [address] [place], [address], 03/05/2025 19:54:43 03/05/20 25 03/05/2025 LIPID PANEL cholesterol 232 mg/dL 140-19 9 high NIH BANDAR NSUS RECOM MENDA TION FOR GIGI STERO L: ADULT CHILD LOW RISK: <200 <170 BORDE RLINE : <200- 239 ----- HIGH RISK: >240 >200 Not Available [facility] (Lab) [address] [place], [address], 03/05/2025 19:54:47 03/05/20 25 03/05/2025 LIPID PANEL triglyceride s 90 mg/dL 0-150 NIH BANDAR NSUS REPOR T RECOM MENDA TION FOR TRIGL YCERI AARON: ADULT CHILD LOW RISK: <150 ----- BODER LINE: 150-1 99 ----- HIGH RISK: >200 ----- Not Available [facility] (Lab) [address] [place], [address], 03/05/2025 19:54:47 03/05/20 25 03/05/2025 LIPID PANEL HDL cholesterol 72 mg/dL 40- Not Available [facility] (Lab) [address] [place], [address], 03/05/2025 19:54:47 03/05/20 25 03/05/2025 LIPID PANEL LDL cholesterol, calculated 142 mg/dL 0-130 high NIH BANDAR NSUS REPOR T RECOM MENDA TIONS FOR LDL: ADULT CHILD LOW RISK <130 <110 (OPTI MAL LDL) <100 ----- FILIPE RLINE : 130-1 59 ----- HIGH RISK: >160 >130 A TRIGL YCERI DE RESUL T >400 INVAL IDATE S THE CALCU LATIO N FOR LDL FRACT IONAT ION - THE LDL RESUL T WILL NOT BE REPOR XANDER. Not Available [facility] (Lab) [address] [place], [address], 03/05/2025 19:54:47 03/05/20 25 03/05/2025 URINA LYSIS COMPL ETE/I RIS W/RFX color COLORL ESS Not Available [facility] (Lab) [address] [place], [address], 03/05/2025 19:55:50 03/05/20 25 03/05/2025 URINA LYSIS COMPL ETE/I RIS W/RFX appear CLEAR Not Available [facility] (Lab) [address] [place], [address], 03/05/2025 19:55:50 03/05/20 25 03/05/2025 URINA LYSIS COMPL ETE/I RIS W/RFX specific gravity 1.004 1.001- 1.030 Not Available [facility] (Lab) [address] [place], [address], 03/05/2025 19:55:50 03/05/20 25 03/05/2025 URINA LYSIS COMPL ETE/I RIS W/RFX pH 7.0 pH_un its 5.0-9. 0 Not Available [facility] (Lab) [address] [place], [address], 03/05/2025 19:55:50 03/05/20 25 03/05/2025 URINA LYSIS COMPL ETE/I RIS W/RFX leukocytes NEGATI VE marj/u L negati ve- Not Available [facility] (Lab) [address] [place], [address], 03/05/2025 19:55:50 03/05/20 25 03/05/2025 URINA LYSIS COMPL ETE/I RIS W/RFX nitrite NEGATI VE negati ve- Not Available [facility] (Lab) [address] [place], [address], 03/05/2025 19:55:50 03/05/20 25 03/05/2025 URINA LYSIS COMPL ETE/I RIS W/RFX protein NEGATI VE mg/dL negati ve- Not Available [facility] (Lab) [address] [place], [address], 03/05/2025 19:55:50 03/05/20 25 03/05/2025 URINA LYSIS COMPL ETE/I RIS W/RFX glucose NORMAL mg/dL normal - Not Available [facility] (Lab) [address] [place], [address], 03/05/2025 19:55:50 03/05/20 25 03/05/2025 URINA LYSIS COMPL ETE/I RIS W/RFX ketones NEGATI VE mg/dL negati ve- Not Available [facility] (Lab) [address] [place], [address], 03/05/2025 19:55:50 03/05/20 25 03/05/2025 URINA LYSIS COMPL ETE/I RIS W/RFX urobilinogen NORMAL mg/dL normal - Not Available [facility] (Lab) [address] [place], [address], 03/05/2025 19:55:50 03/05/20 25 03/05/2025 URINA LYSIS COMPL ETE/I RIS W/RFX bilirubin NEGATI VE mg/dL negati ve- Not Available [facility] (Lab) [address] [place], [address], 03/05/2025 19:55:50 03/05/20 25 03/05/2025 URINA LYSIS COMPL ETE/I RIS W/RFX blood NEGATI VE mg/dL negati ve- Not Available [facility] (Lab) [address] [place], [address], 03/05/2025 19:55:50 03/05/20 25 03/05/2025 URINA LYSIS COMPL ETE/I RIS W/RFX white blood cells NONE /i??h pfi?? 0-8 Not Available [facility] (Lab) [address] [place], [address], 03/05/2025 19:55:50 03/05/20 25 03/05/2025 URINA LYSIS COMPL ETE/I RIS W/RFX red blood cells 0-4 /i??h pfi?? 0-4 Not Available [facility] (Lab) [address] [place], [address], 03/05/2025 19:55:50 03/05/20 25 03/05/2025 URINA LYSIS COMPL ETE/I RIS W/RFX bacteria NONE Not Available [facility] (Lab) [address] [place], [address], 03/05/2025 19:55:50 03/05/20 25 03/05/2025 URINA LYSIS COMPL ETE/I RIS W/RFX squamous epithelial NONE /i??l pfi?? Not Available [facility] (Lab) [address] [place], [address], 03/05/2025 19:55:50 03/05/20 25 03/05/2025 HEMOG LOBIN A1C HA1C 5.1 % 4.0-6. 0 Diabe kranthi Scree sincere Crite glenn: <5.7% Consi stent with absen ce of diabe kranthi 5.7-6 .4% Consi stent with incre ased risk for diabe kranthi (pred iabet es) >OR=6 .5% Consi stent with diabe kranthi REFER ENCE: Diabe kranthi Care 2016, 39(Cardona ppl.1 ):s13 -s22 Not Available [facility] (Lab) [address] [place], [address], 03/05/2025 20:19:20 03/05/20 25 03/05/2025 VITAM IN D 25-HY DROXY vd25oh 16.4 NG/mL 30-100 low Vitam in D Statu s: Defic ient: <20 ng/mL Insuf ficie nt: 20-29 ng/mL Suffi cient : 30-10 0 ng/mL Not Available [facility] (Lab) [address] [place], [address], 03/05/2025 20:29:21 03/05/20 25 03/05/2025 TSH W/REF TERESA FT4 TSH with reflex free T4 0.923 uIU/m L 0.465- 4.680 Not Available [facility] (Lab) [address] [place], [address], 03/05/2025 20:29:31 03/05/20 25 03/05/2025 PSA, TOTAL PSA, total 1.04 NG/mL 0.00-4 .00 Not Available [facility] (Lab) [address], [place], [address], 03/05/2025 20:29:33 Result Notes None recorded. Problems Name Problem SNOMED Code Status Onset Date Resolution Date Notes Provider Name and Address Organization Details Recorded Time External hemorrhoids 80206897 Active 2023 Yariel Ryan MD [address], [place], [address], [employer] 4 09:24:50 Smoker 49917025 Active 2023 Yariel Ryan MD [address] [place] [address], [address], [employer] 4 09:26:35 Family history of diabetes mellitus 240724880 Active 2023 Yariel Ryan MD [address] [place] [address], [address], [employer] 4 09:40:03 Vitamin D deficiency 39617012 Active 2024 Yariel Ryan MD [address] [place], [address], [employer] 5 12:18:55 Hyperlipide veda 40782154 Active 2024 Yariel Ryan MD [address] [place] [address], [address], [employer] 5 12:19:27 Allergic contact dermatitis 148213204 Active 2024 Yariel Ryan MD [address] [place], [address], [employer] 5 12:24:31 Allergic rhinitis 90396500 Active 2024 Yariel Ryan MD [address] [place], [address], [employer] 5 12:25:32 Impacted cerumen of bilateral ears 5810675911262 108 Active 2024 Yariel Ryan MD [address], [place], [address], [employer] 12:27:58 Liver function test above reference range 599043969 Active 2024 Yariel Ryan MD [address], [place], [address], [employer] 12:36:34 Right upper quadrant pain 778803503 Active 2024 Yariel Ryan MD [address], [place], [address], [employer] 12:56:33 Abdominal bloating 023216530 Active 2024 Yariel Ryan MD [address], [place], [address], [employer] 12:56:56 Indigestion 541841894 Active 2024 Yariel Ryna MD [address], [place], [address], [employer] 12:57:26 Burning chest pain Active 2024 Yariel Ryan MD [address], [place], [address], [employer] 13:03:03 Problem Notes None recorded. Procedures Surgical History Date Name Laterality Status Provider Name and Address Organization Details Recorded Time 5 Ear Irrigation completed Yariel Ryan MD [address], [place], [address], [employer] 03/19/2025 12:55:15 5 Smoking Cessation completed Yariel Ryan MD [address], [place], [address], [employer] 03/05/2025 12:06:44 Smoking Cessation completed Yareil Ryan MD [address], [place], [address], [facility] [employer] 03/05/2024 09:27:07 Imaging Results None recorded. Procedure [...] propionate 50 mcg/actuati on nasal spray,suspe nsion Ogilvie 2 sprays every day by intranasa l [...] mass index (BMI) Body weight Body temperature Heart rate Respiratory rate Systolic blood pressure Diastolic blood pressure Provider Name and Address Organization Details Last Updated DateTime 4 175.26 cm 24.7 kg/m2 44736.9 3 g 98.5 [degF] 86 /min 18 /min 110 mm[Hg] 70 mm[Hg] Apple Kong MA [facility] [employer] [facility] 4 10:35:43 Date Recorded Body height Body mass index (BMI) Body weight Body temperature Oxygen saturation Oxygen saturation in Arterial blood by Pulse oximetry Heart rate Systolic blood pressure Diastolic blood pressure Provider Name and Address Organization Details Last Updated DateTime 5 175.26 cm 26.6 kg/m2 75749.6 3 g 97.3 [degF] 96 % 96 % 81 /min 110 mm[Hg] 70 mm[Hg] Lauryn Farr RN [facility] [employer] [facility] 5 12:15:00 Date Recorded Body height Body mass index (BMI) Body weight Body temperature Oxygen saturation Oxygen saturation in Arterial blood by Pulse oximetry Heart rate Systolic blood pressure Diastolic blood pressure Provider Name and Address Organization Details Last Updated DateTime 5 175.26 cm 26.2 kg/m2 33232.9 5 g 97.3 [degF] 96 % 96 % 73 /min 120 mm[Hg] 80 mm[Hg] Lauryn Farr RN [facility] [employer] [facility] 5 12:43:43 Date Recorded Body height Body mass index (BMI) Body weight Body temperature Oxygen saturation Oxygen saturation in Arterial blood by Pulse oximetry Heart rate Systolic blood pressure Diastolic blood pressure Provider Name and Address Organization Details Last Updated DateTime 5 175.26 cm 25.9 kg/m2 26384.7 1 g 97.2 [degF] 95 % 95 % 95 /min 120 mm[Hg] 84 mm[Hg] Lauryn Farr RN [facility] [employer] [facility] 5 12:49:24 Social History Question Answer Notes LastModified by Organization Details LastModified Time Tobacco Smoking Status Current Every Day Smoker Yariel Ryan MD [address] [place] [address], [address] [place], [address], [place] [facility] 03/05/2025 12:22:36 What Is Your Level Of Caffeine Consumption? Occasional Two Cups Coffee In The Morning Information not available 03/05/2025 In The 14 [...] Or The Highest Degree You Have Received? [id number] Information not available 03/05/2024 Have There Been Any Changes To Your Family Or Social Situation? No Information not available 03/05/2024 What Is The Fluoride Status Of Your Home? Unknown Information not available 03/05/2024 Are There Any Guns Present In Your Home? No Information not available 03/05/2024 Where Do You Live? SingleLevelHouse Information not available 03/05/2024 What Is Your Current Pack Years? 10-19packyears [email or web address] Information not available 03/05/2025 Have You Ever [...] Age Did You Start Smoking Tobacco? 21 Information not available 03/05/2025 Are You Passively Exposed To Smoke? No Information not available 03/05/2024 Are There Any Smokers In Your House? No Information not available 03/05/2024 How Much Tobacco Do You Smoke? 1 PPD [email or web address] Information not available 03/05/2025 Do You Participate In Social Media? Yes Information not available 03/05/2024 Do You Use Sunscreen Routinely? Yes Information not available 03/05/2024 How Many Years Have You Smoked Tobacco? 20 [email or web address] Information not available 03/05/2025 Have You Recently Traveled Abroad? No Information not available 03/05/2024 Are You Currently In School? No Information not available 03/05/2024 Do You Have Any Dietary Restrictions? No Information not available 03/05/2024 How Many Years Have You Used E-cigarettes Or Vape? 6 [email or web address] Information not available 03/05/2025 Sex: Male Functional Status Question Answer Note LastModified by Organizat ion Details LastModified Time Do you or have you ever used any other forms of tobacco or nicotine? Yes [email or web address] Information not available 03/05/2025 What is your level of alcohol consumption? Occasional Information not available 03/05/2024 Do you or have you ever used smokeless tobacco? Never used smokeless tobacco [email or web address] Information not available 03/05/2025 Are you currently employed? Yes Information not available 03/05/2024 Do you or have you ever used e-cigarettes or vape? Current user of electronic cigarettes [email or web address] Information not available 03/05/2025 Mental Status Question Answer Note LastModified by Organization D etails LastModified Time Do you feel stressed (tense, restless, nervous, or anxious, or unable to sleep at night)? [id number] Information not available 03/05/2024 Family History Relationship [...] SNOMED-CT Code Diagnosis ICD10 Code Diagnosis Note [id number] Yariel Ryan MD [address] [address] 03/05/2024 09:09:14 03/05/2024 09:43:57 Adult health examination 665999265 Z00.00 Screening for disorder 651340201 Z13.9 Family his tory of diabetes mellitus 706864934 Z83.3 Mom External hemorrhoids 239 [address]389 K64.4 Smoker 28583739 F17.200 Cig + Vaping [id number] Favio singer MD [facility] General Surgery [address] [address] 03/13/2024 10:18:04 06/05/2024 10:52:32 External hemorrhoids 58032502 K64.4 [id number] Yariel Ryan MD [address] [address] 03/13/2024 09:13:03 03/13/2024 11:52:02 [id number] Yariel Ryan MD [address] [address] 03/05/2025 12:01:27 03/05/2025 12:43:46 Adult health examination 559908317 Z00.00 Family his tory of diabetes mellitus 250110055 Z83.3 Mom External hemorrhoids 239 60067 K64.4 Smoker 51794273 F17.200 Cig + Vaping Vitamin D deficiency 347 70561 E55.9 Hyperlipidemia 46450433 E78.5 Allergic c ontact dermatitis 219207613 L23.9 Allergic rhinitis 043727 04 J30.9 Impacted c erumen of bilateral ears 5175557175 962089 H61.23 [id number] Yariel Ryan MD [address] [address] 03/19/2025 12:18:11 03/19/2025 12:59:19 Family history of diabetes mellitus 854304010 Z83.3 Mom External hemorrhoids 239 37167 K64.4 Smoker 53912086 F17.200 Cig + Vaping Vitamin D deficiency 347 39226 E55.9 Hyperlipidemia 33989130 E78.5 Allergic c ontact dermatitis 523796869 L23.9 Allergic rhinitis 859121 04 J30.9 Impacted c erumen of bilateral ears 6901167116 227229 H61.23 Liver func tion test above reference range 617852268 R79.89 [id number] Yariel Ryan MD [facility] [place] [address] [place] [address] 04/09/2025 12:35:50 04/09/2025 12:59:01 Right upper quadrant pain 019269941 R10.11 Abdominal bloating 06216 9008 R14.0 Indigestion 066117120 K3 0 Burning chest pain 57865 07897 R07.89 Health Concerns Section Related Observation LastModified by Organization Detai ls LastModified Time None Recorded Concern Status LastModified by Organization Details LastModified Time None Recorded Advance Directives Directive None Recorded Payers Encounter Date Sequence Insurance Name Policy Number Policy Fontaine Covered Member ID Fontaine Member ID Guarantor Name 03/13/2024 1 [employer] () Medhat Khan [id number] Medhat Khan 03/13/2024 1 [employer] () Medhat Khan [id number] Medhat Khan 03/05/2025 1 [employer] () Medhat Khan [id number] Medhat Khan 03/19/2025 1 [employer] () Medhat Khan [id number] Medhat Khan 04/09/2025 1 [employer] () Medhat Khan [id number] Medhat Khan Notes Date Note Type Note Provider Name and Address Organization Details Recorded Time 03/13/2024 text/html Patient complain s of hemorrhoids which caused some significant itching. Has had 1 for 15 years but now has developed another 1 These do become larger times. denies bleeding, denies constipation or diarrhea Favio Vance MD [address], [facility] [address], [place], [address], [employer] [facility] [employer] [facility] 03/13/2024 13:18:32 03/05/2025 text/html Annual exam + AC V: C/o rash over his Rt thigh and Lt arm for last 5-6 weeks. Denies any insect bite/discharge/yael n over it. No change in soap/lotion/deterg ent. Pt says he sleeps with his face over his Lt arm. C/o chronic allergies and its not getting better. Pt has taken OTC meds as needed only, but not getting better. Pt is here for his annual exam. Doing overall well. Pt is f/u with surg for his hemorrhoids and is doing well with conservative treatement. Yariel Ryan MD [address], [facility] [address], [place], [address], [employer] [facility] [employer] 03/05/2025 12:42:22 03/19/2025 text/html Pt is here for f /u on his annual labs and b/l ear flushing. Doing overall better. Denies any problem with meds. Denies any new concern. His rash and allergies are much improved now. C/o rash over his Rt thigh and Lt arm for last 5-6 weeks. Denies any insect bite/discharge/yael n over it. No change in soap/lotion/deterg ent. Pt says he sleeps with his face over his Lt arm. C/o chronic allergies and its not getting better. Pt has taken OTC meds as needed only, but not getting better. Pt is f/u with surgeon for his hemorrhoids and is doing well with conservative treatement. Yariel Ryan MD [address], [facility] [address], [place], [address], [facility] [employer] [facility] [employer] 03/19/2025 12:58:00 04/09/2025 text/html ACV: C/o RUQ area pain, nausea, burping, bloating for last 4 days. Denies any fever/chills/c/d/b lood in stool. Pt denies any known sick contact/unusual outside food intake. Pt has an order for US abdo, but they can not do it until next week Wed. Pt will be driving to [place] on this weekend. Yariel Ryan MD [address] [place] [address], [place] [address], [place], [place], [id number], [facility] [employer] 04/09/2025 13:03:43
[2025-04-09 12:26] VITALS: BP 126/90; PULSE 88; RESP 16; TEMP 36.4; O2SAT 100
--- NOTE | 2025-04-09 12:27 | ECG_ITS ---
Test Date: 2025-04-09 12:43:45 Measurements Intervals [place] Rate: 79 P: 65 CA: 159 QRS: 84 QRSD: 85 T: 63 QT: 339 QTc: 390 Interpretive Statements SINUS RHYTHM No previous ECG available for comparison Electronically Signed On 04-09-2025 14:14:27 CDT by Lele Conley M.D.
[2025-04-09 13:02] LABS: Basophils Percent Auto 0.3 % (0.2-1.2); Eosinophils Percent Auto 0.7 % (0-4.4); Hemoglobin 16.3 g/dL (14.0-18.0); Immature Granulocyte Absolute 0.04 K/mm3 (0.00-0.031); Immature Granulocyte Percent A 0.7 % (0-0.5); Lymphocytes Absolute Auto 1.62 K/mm3 (0.9-3.2); Lymphocytes Percent Auto 27.9 % (18.3-44.2); Mean Corpuscular Hemoglobin 31.1 pg (26-34); Mean Corpuscular Volume 91.6 fl (80-100); Mean Platelet Volume 8.7 fl (7.4-10.4); Monocytes Absolute Auto 0.4 K/mm3 (0.1-0.6); Monocytes Percent Auto 6.2 % (2.6-8.5); Neutrophils Absolute Auto 3.7 K/mm3 (1.3-6.7); Neutrophils Percent Auto 64.2 % (45.5-73.1); Platelet Count Result 202 k/mm3 (150-375); Red Blood Count 5.24 M/mm3 (4.6-6.20); Red Cell Distribution Width 12.4 % (11.5-14.5); White Blood Count 5.8 K/mm3 (4.5-10.0)
[2025-04-09 13:08] LABS: Alanine Aminotransferase 57 U/L (6-50); Albumin Level 4.7 g/dL (3.5-5.1); Alkaline Phosphatase 59 U/L (38-126); Anion Gap 7 mmol/L (4-12); Aspartate Amino Transferase 52 U/L (17-59); Bilirubin,Total 1.2 mg/dL (0.2-1.3); Blood Urea Nitrogen 9 mg/dL (9-20); Carbon Dioxide 32 mmol/L (22-30); Chloride 100 mmol/L (98-107); Estimated CRCL calculation 95 ml/min; Estimated Glomerular Filt Rate > 60; Glucose 93 mg/dL (65-110); Lipase 96 U/L (23-300); Sodium 139 mmol/L (137-145)
[2025-04-09 13:20] LABS: Troponin I < 0.012 ng/mL (0.000-0.034)
[2025-04-09 13:33] LABS: Prothrombin Time 13.4 Seconds (11.1-14.7)
[2025-04-09 13:34] LABS: Partial Thromboplastin Time 26.9 Seconds (22.3-36.8)
--- NOTE | 2025-04-09 15:39 | ED_ITS ---
HPI - Abdominal Pain General Chief Complaint: Abdominal Pain Stated Complaint: RUQ pain with rad to back/epigastric burning Time Seen by Provider: 04/09/25 13:28 History of Present Illness HPI narrative: Patient is a 44-year-old male who presents ER with right upper quadrant abdominal pain. Ongoing over last week. Radiates to the right back. Has also had some acid reflux moving upper chest. No fevers or chills or sweats. Denies worsening pain with eating. Has some increased discomfort with moving. No urinary frequency urgency or dysuria. No hematuria. No known trauma or increased exertional activity. No chest pain with activity. Related Data Allergies Allergy/AdvReac Type Severity Reaction Status Date / Time No Known Allergies Allergy Verified 04/09/25 12:09 Review of Systems 2 Review of Systems: All systems reviewed & are unremarkable except as noted in HPI and below Constitutional: Constitutional: Reports no additional constitutional complaints Cardiovascular: Cardiovascular: Reports no additional cardiovascular complaints Respiratory: Respiratory: Reports no additional respiratory complaints Gastrointestinal: Gastrointestinal: Reports no additional gastrointestinal complaints Genitourinary: Genitourinary: Reports no additional male genitourinary complaints [facility] Past Medical History Medical History (Updated 04/09/25 @ 15:46 by Yimi Thomason MD) Healthy adult male Surgical History Surgical History (Updated 04/09/25 @ 15:41 by Yimi Thomason MD) No history of previous surgery Exam 2 Narrative: GENERAL: Well-appearing, well-nourished, and in no acute distress. HEAD: Normocephalic, atraumatic. ENT: Mucous membranes moist. NECK: Supple. CHEST: Clear to auscultation. No respiratory distress. HEART: Regular rate and rhythm. Normal peripheral pulses. ABDOMEN: Soft, mild discomfort right upper quadrant without guarding, nondistended. EXTREMITIES: Normal range of motion. No edema. SKIN: Warm, dry, no rash. NEURO: Alert and oriented x3. PSYCH: Normal mood and affect. Course Course Emergency Course: Labs and ultrasound unremarkable. May be developing peptic ulcer. Will place on b.i.d. PPI and recommend follow-up with GI. Vital Signs Vital signs: Vital Signs Temperature 97.6 F 04/09/25 12:26 Pulse Rate 88 04/09/25 12:26 Respiratory Rate 16 04/09/25 12:26 Blood Pressure 126/90 04/09/25 12:26 Pulse Oximetry 100 04/09/25 12:26 Temperature 97.6 F 04/09/25 12:26 Pulse Rate 88 04/09/25 12:26 Respiratory Rate 16 04/09/25 12:26 Blood Pressure 126/90 04/09/25 12:26 Pulse Oximetry 100 04/09/25 12:26 MDM - Abdominal Pain Lab Data 04/09/25 12:52 04/09/25 12:52 Labs: Lab Results 04/09/25 Range/Units 12:52 WBC 5.8 (4.5-10.0) K/mm3 RBC 5.24 (4.6-6.20) M/mm3 Hgb 16.3 (14.0-18.0) g/dL Hct 48.0 (42.0-52.0) % MCV 91.6 (80-100) fl MCH 31.1 (26-34) pg MCHC 34.0 (32-36) g/dl RDW 12.4 (11.5-14.5) % Plt Count 202 (150-375) k/mm3 MPV 8.7 (7.4-10.4) fl Immature Gran % (Auto) 0.7 H (0-0.5) % Neut % (Auto) 64.2 (45.5-73.1) % Lymph % (Auto) 27.9 (18.3-44.2) % [place] % (Auto) 6.2 (2.6-8.5) % Eos % (Auto) 0.7 (0-4.4) % Baso % (Auto) 0.3 (0.2-1.2) % Lymph # (Auto) 1.62 (0.9-3.2) K/mm3 [place] # (Auto) 0.4 (0.1-0.6) K/mm3 Eos # (Auto) 0.0 (0-0.3) K/mm3 Baso # (Auto) 0.0 (0.0-0.1) K/mm3 Abs Immat Gran (auto) 0.04 H (0.00-0.031) K/mm3 Absolute Neuts (auto) 3.7 (1.3-6.7) K/mm3 Absolute Nucleated RBC 0.000 (0.0-0.012) K/mm3 Nucleated RBC % 0.0 (0.0-0.2) % PT 13.4 (11.1-14.7) Seconds INR 1.0 APTT 26.9 (22.3-36.8) Seconds Sodium 139 (137-145) mmol/L Potassium 4.0 (3.4-5.0) mmol/L Chloride 100 (98-107) mmol/L Carbon Dioxide 32 H (22-30) mmol/L Anion Gap 7 (4-12) mmol/L BUN 9 (9-20) mg/dL Creatinine 0.86 (0.7-1.3) mg/dL Estim Creat Clear Calc 95 ml/min Estimated GFR > 60 (59 - ) Glucose 93 (65-110) mg/dL Calcium 11.0 H (8.4-10.2) mg/dL Total Bilirubin 1.2 (0.2-1.3) mg/dL AST 52 (17-59) U/L ALT 57 H (6-50) U/L Alkaline Phosphatase 59 (38-126) U/L Troponin I < 0.012 (0.000-0.034) ng/mL Total Protein 8.0 (6.3-8.2) g/dL Albumin 4.7 (3.5-5.1) g/dL Lipase 96 (23-300) U/L Imaging Data Radiologist's impression: ITS Impressions Chest X-Ray 04/09/25 13:31 IMPRESSION: 1: NO ACUTE CARDIOPULMONARY DISEASE. Upper Quadrant Ultrasound 04/09/25 14:29 IMPRESSION: normal right upper quadrant ultrasound. Discharge Plan Discharge Clinical Impression: Right upper quadrant abdominal pain Patient Disposition: Home Condition: Stable Instructions: GERD (Gastroesophageal Reflux Disease) (ED), Abdominal Pain (ED) Additional Instructions: Return to the emergency department if you develop severe abdominal pain, severe nausea and vomiting to the point where you are unable to keep down fluids, if you develop chest pain or difficulty breathing, blood in your stool, dizziness or fainting, or if you develop any other new or concerning symptoms as these could be signs of more serious medical illness. Try to stay well hydrated. Patient Language: Thai Prescriptions: New pantoprazole [Protonix] 40 mg tablet,delayed release (DR/EC) 40 mg PO BID Qty: 30 0RF Follow-up/Referrals: Connor,MD Yariel [Primary Care Provider] - Jaylen Pires MD [Physician] - 1 Week
--- NOTE | 2025-04-09 15:42 | ECG_ITS ---
Test Date: 2025-04-09 15:45:48 Measurements Intervals [place] Rate: 74 P: -9 AR: 146 QRS: 59 QRSD: 86 T: 47 QT: 343 QTc: 383 Interpretive Statements SINUS RHYTHM LOW QRS VOLTAGE IN PRECORDIAL LEADS [QRS DEFLECTION < 1.0 mV IN CHEST LEADS] Compared to ECG 04/09/2025 12:43:45 NO SIGNIFICANT CHANGES Electronically Signed On 04-10-2025 12:37:16 CDT by Billie Ryan M.D.
[2025-04-09 16:07] VITALS: BP 137/103; PULSE 85; RESP 15; O2SAT 100
[2025-04-09 16:21] LABS: Troponin I < 0.012 ng/mL (0.000-0.034)
== END 2025-04-09 16:14 | disposition home or self-care (01) ==
PROVIDERS: Physician Assistant; Emergency Provider Emergency Medicine; PCP Family Medicine
DX: R10.11 Right upper quadrant pain (principal)
CPT/HCPCS: 36415; 71046; 76705; 80053; 83690; 84484; 85025; 85610; 85730; 93005; 99284

== ENCOUNTER 2025-06-01 13:52 | Emergency (ER) | payer OTHER, SELFPAY ==
--- NOTE | ~2025-06-01 | XR_ITS ---
EXAMINATION: XR chest 2V DATE: 06/01/2025 14:46 INDICATION: 4 days of chest pain TECHNIQUE: PA and lateral views of the chest were obtained. COMPARISON: Chest radiograph dated 04/09/2025 FINDINGS: The lungs remain clear with no focal airspace opacities, pulmonary edema, pleural effusion or pneumot horax. The cardiomediastinal silhouette is normal. Visualized bones and soft tissues are unremarkable . IMPRESSION: 1. No acute cardiopulmonary disease. Reviewed, dictated and finalized at location A.
--- NOTE | 2025-06-01 13:54 | ECG_ITS ---
Test Date: 2025-06-01 14:01:11 Measurements Intervals [place] Rate: 120 P: 65 CA: 150 QRS: 80 QRSD: 88 T: 40 QT: 311 QTc: 440 Interpretive Statements SINUS TACHYCARDIA ABNORMAL RHYTHM ECG Compared to ECG 04/09/2025 15:45:48 HEART RATE INCREASED Electronically Signed On 06-02-2025 09:59:46 CDT by Eligio Enriquez M.D.
[2025-06-01 13:55] VITALS: BP 148/94; PULSE 118; RESP 20; TEMP 36.6; O2SAT 100
--- OUTSIDE RECORDS SUMMARY | 2025-06-01 14:02 | XMS_ITS | Continuity of Care Document ---
Author Name [facility] Organization [facility] Care Team Providers Care Attache Name Role Phone [facility] Unavailable Unavailable Problems [...] DoD REFRACTIVE ERROR - HYPERMETROPIA Active Condition [facility] ASTIGMATISM - REGULAR Active Condition DoD COMMON COLD Inactive Condition DoD physical trauma sports-related Inactive Condition DoD SPRAIN RIBS Inactive Condition DoD work-related environmental exposure Inactive Condition DoD visit for: services flight physical Active Condition DoD visit for: services physical pre-deployment Active Condition [facility] visit for: screening exam malaria Active Condition DoD SINUSITIS Active Condition [facility] visit for: administrative purpose Inactive Condition [facility] visit for: screening exam venereal disease Active Condition DoD Vesicle (___mm) Active Condition DoD EPIDERMAL INCLUSION CYST Inactive Condition DoD upper back pain (between shoulder blades) Active Condition DoD ALLERGIC RHINITIS Active Condition DoD SHOULDER STRAIN LEFT Inactive Condition [facility] visit for: refer patient without [...] medical certificate fitness Inactive Condition 422 COMPLETED [facility] Outpatient Physician Consultation Inactive Condition DoD Medications [...] Cream 2.5% Topical For external use. 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 (MOD) complet ed SARS-COV- 2 (COVID-19 ) vaccine, mRNA, spike protein, LNP, preservat candelario free, 100 mcg or 50 mcg dose DoD COVID Vaccine Moderna 2020 [id number] complet ed COVID Vaccine Moderna 02/18/21 Given Ambulat ory Pharmac y SARS-COV-2 (COVID-19) vaccine, mRNA, spike protein, LNP, preservative free, 100 mcg or 50 mcg dose 1 2020 [id number] 207 Moderna [employer] (MOD) complet ed SARS-COV- 2 (COVID-19 [...] preservat candelario free DoD Influenza, injectable, Madin [place] Canine Kidney, quadrivalent with preservative 0 2019 186 (MVX) complet ed Influenza , injectabl e, [employer] [place] Canine Kidney, quadrival ent with preservat candelario DoD influenza, injectable, quadrivalent- pf 2018 [id number] 150 Seqirus complet ed influenza , injectabl e, quadrival ent-pf 09/25/19 Given Ambulat ory Pharmac y Influenza, injectable, quadrivalent, preservative free 1 2018 [id number] 150 Seqirus (SEQ) complet ed Influenza , injectabl e, quadrival ent, preservat candelario free DoD influenza, injectable, quadrivalent- pf 2017 [id number] 150 GlaxJefferson HealthithKli ne complet ed influenza , injectabl e, quadrival ent-pf 10/28/18 Given Ambulat ory Pharmac y Influenza, injectable, quadrivalent, preservative free 1 2017 [id number] 150 [facility] (SKB) complet ed Influenza , injectabl e, quadrival ent, preservat candelario free DoD influenza, injectable, quadrivalent 2016 [id number] 158 GlaxoSmithKli ne complet ed influenza , injectabl e, quadrival ent 09/13/17 Given Ambulat ory Pharmac y influenza, injectable, quadrivalent, contains preservative 0 2016 [id number] 158 [facility] (SKB) complet ed influenza , injectabl e, quadrival ent, contains preservat candelario DoD influenza, seasonal, injectable-pf 2015 [id number] 140 Seqirus complet ed influenza , seasonal, injectabl e-pf 09/04/16 Given Ambulat ory Pharmac y Influenza, seasonal, injectable, preservative free 16 2015 [id number] 140 Seqirus (SEQ) comple t ed Influenza , seasonal, injectabl e, preservat candelario free DoD influenza, seasonal, injectable-pf 2015 [id number] 140 CSL Behring complet ed influenza , seasonal, injectabl e-pf 11/23/15 Given Ambulat ory Pharmac y Influenza, seasonal, injectable, preservative free 15 2015 [id number] 140 C[employer] (CSL) complet ed Influenza , seasonal, injectabl e, preservat candelario free DoD influenza, seasonal, injectable 2013 [id number] 141 ID Biomedical comple t ed influenza , seasonal, injectabl e 10/26/14 Given Ambulat ory Pharmac y Influenza, seasonal, injectable 14 2013 [id number] 141 (IDB) complet ed Influenza , seasonal, injectabl e DoD influenza, seasonal, injectable 2012 [id number] 141 CSL Behring complet ed influenza , seasonal, injectabl e 08/12/13 Given Ambulat ory Pharmac y Influenza, seasonal, injectable 13 2012 [id number] 141 [employer] (CSL) complet ed Influenza , seasonal, injectabl e DoD influenza, seasonal, injectable-pf 2011 [id number] 140 CSL Behring complet ed influenza , seasonal, injectabl e-pf 10/4/12 Given Ambulat ory Pharmac y Influenza, seasonal, injectable, preservative free 12 2011 [id number] 140 CS Dynamic [employer] Inc[employer] (CSL) complet ed Influenza , seasonal, injectabl e, preservat candelario free DoD tetanus, diphtheria, acellular pertu is 2011 [id number] 115 GlaxoSmithKli ne complet ed tetanus, diphtheri a, acellular pertussis 06/19/12 Given Ambulat ory Pharmac y tetanus toxoid, reduced diphtheria toxoid, and acellular pertu is vaccine, adsorbed 0 2011 [id number] 115 [employer] (SKB) complet ed tetanus toxoid, reduced diphtheri a toxoid, and acellular pertussis vaccine, adsorbed DoD influenza, seasonal, injectable-pf 2010 [id number] 140 sanofi pasteur complet ed influenza , seasonal, injectabl e-pf 09/06/11 Given Ambulat ory Pharmac y Influenza, seasonal, injectable, preservative free 11 2010 [id number] 140 Sanofi Pasteur (PMC) complet ed Influenza , seasonal, injectabl e, preservat candelario free DoD hepatitis B adult vaccine 2010 [id number] 43 GlaxoSmithKli ne complet ed hepatitis B adult vaccine 01/26/11 Given Ambulat ory Pharmac y anthrax vaccine 2010 [id number] 24 Emergent Biosolutions complet ed anthrax vaccine 01/26/11 Given Ambulat ory Pharmac y anthrax vaccine 3 2010 [id number] 24 Emergent [employer] [place] ([facility]) complet ed anthrax vaccine DoD hepatitis B vaccine, adult dosage 3 2010 [id number] 43 Yozonsine (SKB) complet ed hepatitis B vaccine, adult dosage DoD hepatitis B adult vaccine 2009 [id number] [id number] 43 GlaxoSmithKli ne complet ed hepatitis B adult vaccine 08/16/10 Given Ambulat ory Pharmac y anthrax vaccine 2009 [id number] 24 [employer] complet ed anthrax vaccine 08/16/10 Given Ambulat ory Pharmac y influenza virus vaccine,split 2009 [id number] 15 CSL Behring complet ed influenza virus vaccine,s plit 08/16/10 Given Ambulat ory Pharmac y influenza virus vaccine, split virus (incl. purified surface antigen)-reti red CODE 1 2009 [id number] 15 [employer] Inc[employer] (CS) complet ed influenza virus vaccine, split virus (incl. purified surface antigen)- retired CODE DoD anthrax vaccine 2 2009 [id number] 24 [employer] [place] ([facility]) complet ed anthrax vaccine DoD hepatitis B vaccine, adult dosage 2 2009 [id number] 43 SmithKline (SKB) complet ed hepatitis B vaccine, adult dosage DoD typhoid Vi capsular polysaccharid e vac 2009 [id number] 101 sanofi pasteur complet ed typhoid Vi capsular polysacch aride vac 07/06/10 Given Ambulat ory Pharmac y hepatitis B adult vaccine 2009 [id number] [id number] 43 iSTARoSmithKli ne complet ed hepatitis B adult vaccine 07/06/10 Given Ambulat ory Pharmac y anthrax vaccine 2009 [id number] 24 Emergent [employer]olutions complet ed anthrax vaccine 07/06/10 Given Ambulat ory Pharmac y anthrax vaccine 1 2009 [id number] 24 [employer] [place] ([facility]) complet ed anthrax vaccine DoD hepatitis B vaccine, adult dosage 1 2009 [id number] [id number] 43 SmithKline (SKB) complet ed hepatitis B vaccine, adult dosage DoD typhoid Vi capsular polysaccharid e vaccine 1 2009 P6384-8 101 Sanofi Pasteur (PMC) complet ed typhoid Vi capsular polysacch aride vaccine DoD Novel influenza-H1N 1-09,pf,injec table 2009 [id number] 1 126 Novartis Pharmaceutica ls complet ed Novel influenza -[id number], pf,inject able 12/27/09 Given Ambulat ory Pharmac y Novel influenza-H1N 1-09, preservative- free, injectable 1 2009 [id number] 1 126 Novartis Pharmaceutica l Jeffry. (NOV) complet ed Novel influenza -[id number], preservat candelario-free, injectabl e DoD influenza virus vaccine,split 2008 [id number] 15 sanofi pasteur complet ed influenza virus vaccine,s plit 10/20/09 Given Ambulat ory Pharmac y influenza virus vaccine, split virus (incl. purified surface antigen)-reti red CODE 1 2008 [id number] 15 Sanofi Pasteur ([facility]) complet ed influenza virus vaccine, split virus (incl. purified surface antigen)- retired CODE DoD influenza virus vaccine, live 2007 [id number] 111 [employer] Inc comple t ed influenza virus vaccine, live 08/24/08 Given Ambulat ory Pharmac y influenza virus vaccine, live, attenuated, for intranasal use 1 2007 [id number] 111 FKK Corporation, Inc. (MED) complet ed influenza virus vaccine, live, attenuate d, for intranasa l use DoD influenza virus vaccine, live 2006 [id number] 111 [employer] Inc comple t ed influenza virus vaccine, live 10/02/07 Given Ambulat ory Pharmac y influenza virus vaccine, live, attenuated, for intranasal use 1 2006 [id number] 111 FKK Corporation, Planex. (MED) complet ed influenza virus vaccine, live, attenuate d, for intranasa l use DoD influenza virus vaccine,split 2005 [id number] 15 sanofi pasteur complet ed influenza virus vaccine,s plit 11/01/06 Given Ambulat ory Pharmac y influenza virus vaccine, split virus (incl. purified surface antigen)-reti red CODE 1 2005 [id number] 15 Sanofi Pasteur ([facility]) complet ed influenza virus vaccine, split virus (incl. purified surface antigen)- retired CODE [facility] influenza virus vaccine, whole virus 1 2005 Unknown, Provider [id number] 16 Sanofi Pasteur ([facility]) complet ed influenza virus vaccine, whole virus [facility] influenza virus vaccine, whole virus 2004 [id number] 16 sanofi pasteur complet ed influenza virus vaccine, whole virus 10/10/05 Given Ambulat ory Pharmac y influenza virus vaccine,split 2004 [id number] 15 sanofi pasteur complet ed influenza virus vaccine,s plit 10/10/05 Given Ambulat ory Pharmac y influenza virus vaccine, split virus (incl. purified surface antigen)-reti red CODE 1 2004 [id number] 15 Sanofi Pasteur ([facility]) complet ed influenza virus vaccine, split virus (incl. purified surface antigen)- retired CODE [facility] influenza virus vaccine, whole virus 1 2004 [id number] 16 Sanofi Pasteur (PMC) complet ed influenza virus vaccine, whole virus DoD influenza virus vaccine, whole virus 2004 [id number] 16 sanofi pasteur complet ed influenza virus vaccine, whole virus 12/20/04 Given Ambulat ory Pharmac y influenza virus vaccine, whole virus 0 2004 [id number] 16 Sanofi Pasteur ([facility]) complet ed influenza virus vaccine, whole virus DoD influenza virus vaccine, whole virus 2002 [id number] 16 Novartis Pharmaceutica ls complet ed influenza virus vaccine, whole virus 10/05/03 Given Ambulat ory Pharmac y influenza virus vaccine, whole virus 0 2002 [id number] 16 [employer] Pharm[employer] ls (PWJ) complet ed influenza virus vaccine, whole virus DoD tuberculin purified protein derivative 2002 [id number] 96 sanofi pasteur complet ed tuberculi n purified protein derivativ e 11/25/02 Given Ambulat ory Pharmac y tuberculin skin test; purified protein derivative solution, intradermal 1 2002 Unknown, Provider [id number] Sanofi Pasteur ([facility]) complet ed tuberculi n skin test; purified protein derivativ e solution, intraderm al DoD influenza virus vaccine, whole virus 2001 [id number] 16 [employer] Corporation complet ed influenza virus vaccine, whole virus 09/16/02 Given Ambulat ory Pharmac y influenza virus vaccine, whole virus 0 2001 [id number] 16 [facility] ([facility]) complet ed influenza virus vaccine, whole virus DoD typhoid Vi capsular polysaccharid e vac 2001 [id number] 101 sanofi pasteur complet ed typhoid Vi capsular polysacch aride vac 05/12/02 Given Ambulat ory Pharmac y yellow fever vaccine 2001 [id number] 37 sanofi pasteur complet ed yellow fever vaccine 05/12/02 Given Ambulat ory Pharmac y yellow fever vaccine 0 2001 [id number] 37 Sanofi Pasteur ([facility]) complet ed yellow fever vaccine DoD typhoid Vi capsular polysaccharid e vaccine 0 2001 [id number] 101 Sanofi Pasteur ([facility]) complet ed typhoid Vi capsular polysacch aride vaccine DoD hepatitis A adult vaccine 2001 [id number] 52 [employer] [place] complet ed hepatitis A adult vaccine 05/02/02 Given Ambulat ory Pharmac y tetanus-dipht h toxoids (Td) adult/adol 2001 [id number] 09 sanofi pasteur complet ed tetanus-d iphth toxoids (Td) adult/ado l 05/02/02 Given Ambulat ory Pharmac y tetanus and diphtheria toxoids, adsorbed, preservative free, for adult use (2 Lf of tetanus toxoid and 2 Lf of diphtheria toxoid) 0 2001 [id number] 09 Sanofi Pasteur (PMC) complet ed tetanus and diphtheri a toxoids, adsorbed, preservat candelario free, for adult use (2 Lf of tetanus toxoid and 2 Lf of diphtheri a toxoid) DoD hepatitis A vaccine, adult dosage 2 2001 [id number] 52 [employer] ([facility]) complet ed hepatitis A vaccine, adult dosage [...] Pharmac y tuberculin purified protein derivative 2000 [id number] 96 [employer] complet ed tuberculi n purified protein derivativ e 08/30/01 Given Ambulat ory Pharmac y hepatitis A adult vaccine 2000 [id number] 52 Merck & Company Inc complet ed hepatitis A adult vaccine 08/30/01 Given Ambulat ory Pharmac y meningococcal polysaccharid e (MPSV4) 2000 [id number] 32 [facility] complet ed meningoco ccal polysacch aride (MPSV4) 08/30/01 Given Ambulat ory Pharmac y influenza virus vaccine, whole virus 2000 [id number] 16 [employer] Corporation complet ed influenza virus vaccine, whole virus 08/30/01 Given Ambulat ory Pharmac y poliovirus vaccine, inactivated 0 2000 [id number] 10 Sanofi Pasteur (PMC) complet ed polioviru s vaccine, inactivat ed DoD influenza virus vaccine, whole virus 0 2000 [id number] 16 Carmine ([facility]) complet ed influenza virus vaccine, whole virus DoD meningococcal polysaccharid e vaccine (MPSV4) 0 2000 [id number] 32 [place] (CON) complet ed meningoco ccal polysacch aride vaccine (MPSV4) DoD hepatitis A vaccine, adult dosage 1 2000 [id number] 52 Merck (MSD) complet ed hepatitis A vaccine, adult dosage DoD tuberculin skin test; purified protein derivative solution, intradermal 1 2000 Unknown, Provider [id number] Louise (CON) complet ed tuberculi n skin test; purified [...] ADM Date DC Date Status Disposition Source [facility]) OUTPATIENT [id number] rec rev EFREN ALCOCER 08/08 Released w/o Limitations [facility](F lt[facility] ile Medicin e) [facility]) TELE CONSULT [id number] pt has concern s about a wart that was frozen YVROSE SY 08/31 [facility]) [facility]) TELE CONSULT [id number] MED REFILL YVROSE SY 10/25 [facility]) [facility]) OUTPATIENT [id number] 422 PANFILO GONZALES 12/28 Released w/o Limitations [facility](F lt/Miss ile Medicin e) [facility]) OUTPATIENT [id number] 422 EFREN ALCOCER 01/03 Released w/o Limitations [facility](F lt[facility] ile Medicin e) [facility]) OUTPATIENT [id number] cold OMAR HARDEN W 01/04 Sick at Home/Quarter s [employer]) [facility]) TELE CONSULT [id number] sore throat getting worse GRAY, JULIO C 01/05 [facility]) [facility]) OUTPATIENT [id number] hurt finger OMAR HARDEN W 02/17 Released w/o Limitations [facility]) [facility]) TELE CONSULT [id number] cold symptom s ELLIOT STERLING 11/27 [facility]) [facility] OUTPATIENT [id number] d/ dizzyne ss OMAR HARDEN W 04/02 Sick at Home/Quarter s [facility]) [facility] OUTPATIENT [id number] lft knee pain OMAR HARDEN W 09/06 Released w/o Limitations [facility] OUTPATIENT [id number] lft knee pain OMAR HARDEN W 10/08 Released w/o Limitations [facility]) OUTPATIENT [id number] Initial Firefig hter Exam WILNER DICKERSON 12/26 Released w/o Limitations [employer] lt[facility]Miss ile Medicin e) [facility] OUTPATIENT [id number] Wrist pain OMAR HARDEN W 01/29 Released w/o Limitations [facility]) TELE CONSULT [id number] URGENT CARE REFERRA REGINO BROWN 05/15 [employer]) [facility] TELE CONSULT [id number] STD check MEDLEYKARIE Marquez Carson 06/14 [facility]) [facility]) TELE CONSULT [id number] lab results PAKO WILLS 06/21 [facility]) OUTPATIENT [id number] congest ion, headach es, nausea CORNELIA GENAO 10/21 Released w/o Limitations [facility] TELE CONSULT [id number] URI CORNELIA GENAO 10/22 [facility] OUTPATIENT [id number] left foot pain CORNELIA GENAO 04/14 Released w/o Limitations [facility]) [facility](Ort hopedic Clinic) OUTPATIENT [id number] Orthope dic DME lace-up ankle brace RENATA JUARES 04/14 Released w/o Limitations [facility](O rthoped ic Clinic) [facility]) OUTPATIENT [id number] sore throat and fever CORNELIA GENAO 06/03 Released w/o Limitations [facility]) [facility] TELE CONSULT [id number] Paperwo CHRISTINE Nicholson 07/09 [facility] OUTPATIENT [id number] sore throat and congest ion CROSS-SHOK JAYSON LEEA UNIQUE 10/01 Released w/o Limitations [facility]) [facility]) OUTPATIENT [id number] congest ion JULIO CESAR JUDGE 10/06 Released w/o Limitations [facility]) [facility]) OUTPATIENT [id number] pain in left leg, lump like blood under the skin on leg JOSIAS ROTHMAN 07/13 Released w/o Limitations [facility]) [facility]) TELE CONSULT [id number] triage report/ ANDRÉS Gupta 08/23[facility]) [facility](Tat [facility]ka [facility]) OUTPATIENT [id number] pains back of left shoulde r -got worse this morning /someth ing popped JOSIAS ROTHMAN T 09/15 Released w/o Limitations [facility](T sissyn [facility] Team) [facility]) OUTPATIENT [id number] Pt said new issue- upper right back pains for a week and no change JOSIAS ROTHMAN T 03/11 Released w/o Limitations [facility] C) OUTPATIENT [id number] CJ Garcia L 03/22 Released w/o Limitations [facility]) Medical Group([facility] anka Team) OUTPATIENT [id number] RASH JOSIAS ROTHMAN T 05/05 Released w/o Limitations [facility](Tat anka Team) TELE CONSULT [id number] [facility] ed for results MATTHEW SEGOVIA 05/10 Medical Group(T sissyn FH Team) [facility] Group(Tat anka Team) OUTPATIENT [id number] f/u-- Pt said possibl e sinus infecti on and symptom s got worse BENJAMIN HOUGH 06/06 Released w/o Limitations [facility] Group(FO C) OUTPATIENT [id number] Malaria Screeni ng CJ LARA L 06/29 Released w/o Limitations [facility]) Medical Group(FO C) OUTPATIENT [id number] ROSINA Otto 04/10 Released w/o Limitations [facility]) [facility] Group([facility]) OUTPATIENT [id number] PDHROSINA CHRISTENSEN 07/14 Released w/o Limitations [facility] Group([facility] Team) OUTPATIENT [id number] rib pains JOSIAS ROTHMAN T 08/16 Released w/o Limitations [facility]) [facility] Group(Tat [facility]ka Team) OUTPATIENT [id number] broke rib 3 weeks ago, still not getting better JOSIAS ROTHMAN T 09/13 Released with Work/Duty Limitations [facility](T [facility] Team) [facility] OUTPATIENT [id number] congest ion, cough, and diarrhe a JOSIAS ROTHMAN T 10/23 Released w/o Limitations [facility](T [facility] Team) Medical Group(Opt [facility]metry Clinic) OUTPATIENT [id number] karli-a nnual eye exam WANDA NICOLE 11/02 Released w/o Limitations [facility](O ptometr y Clinic) [facility] OUTPATIENT [id number] vomitin g, diarrhe a, congest ion, chills, LORNA JOSIAS T 11/28 Sick at Home/Quarter s [facility](T [facility] Team) Medical Group([facility] anka Team) OUTPATIENT [id number] congest ion, runny nose, possibl e allergi es LORNA ANGELICAKE T 02/08 Released w/o Limitations [facility](T [facility] Team) Medical Group(Pre ventive Health Assessmen ts) OUTPATIENT [id number] PHA MEREDITH CHAPIN 03/21 Released w/o Limitations [facility](P reventi ve Health Assessm ents) Medical Group([facility] anka Team) OUTPATIENT [id number] Notes Entered by: HUMBERTO CHATMAN 09 Jul 2012 1300 ------- ------- ------- ------- -- walk in strep JOSIAS ROTHMAN T 07/09 Released w/o Limitations [facility](T [facility] Team) Medical Group([facility] anka Team) TELE CONSULT [id number] Notes Entered by: ADELSO VALENTIN 30 Jul 2012 1303 ------- ------- ------- ------- -- Other JOSIAS ROTHMAN 07/30 [employer] [facility]) [employer] [facility]) TELE CONSULT [id number] Notes Entered by: SHEY ASIF 30 Jul 2012 1407 ------- ------- ------- ------- -- Other NADER HUTCHINSON 07/30 [employer] [facility]) [employer] [facility]) OUTPATIENT [id number] Notes Entered by: HUMBERTO CHATMAN 15 Aug 2012 0916 ------- ------- ------- ------- -- walk in suture removal JOSIAS ROTHMAN 08/15 Released w/o Limitations [employer] [facility] [employer]([facility]) [employer] [facility] [employer]([facility] Health Assessmen ts) OUTPATIENT [id number] [facility] PHOEBE NGUYỄN 08/22 Released w/o Limitations [employer] [facility](D [employer] Assessm ents) [employer](Anand miranda OM Team) TELE CONSULT [id number] Notes Entered by: BECKY CHAPPELL 27 Dec 2012 1213 ------- ------- ------- ------- -- 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 [facility] BECKY BLANK 12/27 [employer](R aiders OM Team) [employer] OUTPATIENT [id number] f/u on allergALONDRA Hendrickson 02/05 Released w/o Limitations [employer] [employer]([facility] luis Health B) TELE CONSULT [id number] MINERVA JONES 03/11 [employer]( [facility] Health B) [employer]([facility] Health Assessmen t) OUTPATIENT [id number] ELISSA VILLA 03/13 Released w/o Limitations [employer]( [facility]) [employer]([facility] [employer]) OUTPATIENT [id number] f/u blood work ALONDRA BEAVERS 03/20 Released w/o Limitations [employer] [employer]([facility] [employer] ) OUTPATIENT [id number] wart removal ALONDRA BEAVERS 08/11 Released w/o Limitations [employer] [employer]([facility]) OUTPATIENT [id number] congest ion ALONDRA BEAVERS 01/20 Released w/o Limitations [employer]( [employer] B) [employer] OUTPATIENT [id number] PHA ALONDRA BEAVERS 03/25 Released w/o Limitations [employer]( [employer] B) [employer] TELE CONSULT [id number] Notes Entered by: MARILEE AVILES 05 Oct 2014 0933 ------- ------- ------- ------- -- Zuccare lli triage; hole in left eyelid/ swollen CHLOÉ QURESHI 10/05 Referred for Appointment [employer]( [employer]) [employer]([facility]) OUTPATIENT [id number] Notes Entered by: Marcy CAMARENA JR 05 Oct 2014 1015 ------- ------- ------- ------- -- red eye walk in RANDY ROMAN 10/05 Released w/o Limitations [employer](O ptometr y Clinic) [employer]([facility]) OUTPATIENT [id number] eye pain f/u RANDY ROMAN 10/26 Released w/o Limitations [employer](O ptometr y Clinic) [employer]) OUTPATIENT [id number] possibl e carpel tunnel in wrists ALONDRA BEAVERS 11/25 Released w/o Limitations [employer]([facility] B) [employer]([facility]) TELE CONSULT [id number] Notes Entered by: KANA POWERS 09 Dec 2014 1225 ------- ------- ------- ------- -- Radiolo TITI Garcia 12/09 Released to [employer]([facility]) [employer]([facility]) TELE CONSULT [id number] Notes Entered by: NNIA ORTIZ ON T 23 Dec 2014 0820 ------- ------- ------- ------- -- TRIAGE Pt is having chest congest ion, product candelario cough, sluggis h. TITI RAHMAN 12/23 Released to [employer]([facility] B) [employer]([facility]) TELE CONSULT [id number] Notes Entered by: AMERICA GLASGOW 10 Feb 2015 1433 ------- ------- ------- ------- -- CHLOÉ Turcios 02/10 Released to [employer]([facility] B) [employer]([facility]) TELE CONSULT [id number] Notes Entered by: JOSE MARIA HYMAN 04 Mar 2015 0925 ------- ------- ------- ------- -- Network Results - ALONDRA Casarez 03/04 [employer]([facility] B) [employer]([facility]) TELE CONSULT [id number] Notes Entered by: MARILEE AVILES 05 Apr 2015 1247 ------- ------- ------- ------- -- Triage; joelle marquez in TITI Reveles 04/05 Referred for Appointment [employer](F [facility] Health B) [employer]([facility] Health B) OUTPATIENT [id number] Notes Entered by: EILEEN DE LOS SANTOS 06 Apr 2015 0756 ------- ------- ------- ------- -- walk-in ear wash (both ears) KANA POWERS 04/06 Released w/o Limitations [employer]( [facility] Health B) [employer]([facility] Health B) TELE CONSULT [id number] Notes Entered by: REHAN BLAIR 13 Apr 2015 1020 ------- ------- ------- ------- -- Network Results - Orthope dic - 015 KANA FAULKNER 04/13 [employer]( [facility] B) [employer]([facility] Health Assessmen t) OUTPATIENT [id number] Notes Entered by: JABARI WEAVER 23 Jun 2015 1324 ------- ------- ------- ------- -- Adminis trative [facility] JABARI WEAVER 06/23 Released w/o Limitations [employer](P hysical Health Assessm ent) [employer]([facility] Health B) TELE CONSULT [id number] Notes Entered by: EILEEN DE LOS SANTOS 07 Jun 2016 0827 ------- ------- ------- ------- -- Er suzanne malave/TOYIN Caputo 06/07 Referred for Appointment [employer]( [facility] B) [employer]([facility] Health B) TELE CONSULT [id number] Notes Entered by: LISSETTE OLIVAS 07 Jun 2016 1132 ------- ------- ------- ------- -- NETWORK RESULTS ER-05/19 KANA POWERS 06/07 [employer]([facility] Health B) [employer]([facility]) TELE CONSULT [id number] Notes Entered by: KANA POWERS P 07 Jun 2016 1318 ------- ------- ------- ------- -- ER f/u LEON CHAPPELL 06/07 Released to [employer]([facility]) [employer]([facility]) OUTPATIENT [id number] ER follow up-tess vigil, ford, and joelle ardon spoke with nurse already . KANA POWERS P 06/08 Released w/o Limitations [employer]([facility] Health B) [employer]([facility]) TELE CONSULT [id number] Notes Entered by: KANA POWERS P 09 Jun 2016 1241 ------- ------- ------- ------- -- TOYIN RIOJAS 06/09 Referred for Appointment [employer]([facility]) [employer]([facility]) TELE CONSULT [id number] Notes Entered by: ILSA RAI 02 Nov 2016 1551 ------- ------- ------- ------- -- Med Out-Pro cessing Workshe et ILSA CARIAS 11/02 Other Not Elsewhere Classified [employer] [employer]([facility]) OUTPATIENT [id number] Notes Entered by: KRISTIN JAMES 07 Feb 2017 1440 ------- ------- ------- ------- -- KRISTIN CHAN 02/07 Released w/o Limitations [employer]([facility] light Medicin e Clinic) [employer]([facility]yn [facility] Team B) OUTPATIENT [id number] RASH ( [place]) OMAR MENDOZA 05/23 Released w/o Limitations [facility] [employer] [facility] Team B) [employer]([facility] Team B) OUTPATIENT [id number] cold symptom linda OMAR MENDOZA 06/06 Released w/o Limitations [facility] [employer]([facility] Team B) [facility] [employer] [facility] Team B) OUTPATIENT [id number] head and chest congest OMAR Christine 06/12 Released with Work/Duty Limitations [facility] [employer]([facility] Team B) [facility] Team B) TELE CONSULT [id number] Notes Entered by: ANTONIETA PEARSON 22 Nov 2017 1236 ------- ------- ------- ------- -- Triage non prp DEWAYNE KELLY 11/22 [facility] Team B) [facility] Team B) OUTPATIENT [id number] vertigo x 3 days OWEN METZGER I 11/23 Released w/o Limitations [facility] Team B) [facility] Team B) TELE CONSULT [id number] Notes Entered by: ANTONIETA PEARSON 26 Nov 2017 1043 ------- ------- ------- ------- -- Lab Results DEWAYNE KELLY 11/26 [facility] Team B) [facility](Ref erral Managemen t Clinic) TELE CONSULT [id number] Notes Entered by: KEVIN PEARSON 04 Dec 2017 0949 ------- ------- ------- ------- -- Network Results -Radiol ogy 8 OWEN METZGER I 12/04 [facility] [employer] [facility](R eferral Manage ent Clinic) [facility] [employer] [facility] Team B) OUTPATIENT [id number] dizzine ss/ligh t headedn ess/hea d aches YASSINE, OWEN I 12/06 Released w/o Limitations [employer]([facility] Team B) [employer]([facility]) OUTPATIENT [id number] SIVAN Weinberg 12/10 Released w/o Limitations [employer]([facility] Optomet ry [facility]) [employer]([facility] Team B) OUTPATIENT [id number] Notes Entered by: DEVORA OLVERA 30 Jan 2018 1029 ------- ------- ------- ------- -- PHAMHA DEVORA OLVERA 01/30 Released w/o Limitations [facility] Team B) [facility] Team B) TELE CONSULT [id number] Notes Entered by: DEVORA OLVERA 30 Jan 2018 1032 ------- ------- ------- ------- -- Allergy meds DEVORA OLVERA 01/30 [employer]([facility] Team B) [facility] Team A) OUTPATIENT [id number] Notes Entered by: JUHI SHULTZ I 20 Feb 2018 0803 ------- ------- ------- ------- -- Walkin sore throat MORIAH BYNUM 02/20 Released w/o Limitations [facility] Team A) [facility] Team B) TELE CONSULT [id number] Notes Entered by: JAILENE FONG 22 Apr 2018 0813 ------- ------- ------- ------- -- Triage - toe injury DEWAYNE KELLY 04/22 [employer]([facility] Team B) [facility] Team B) OUTPATIENT [id number] hit toe on the side of the tub. ANGIE HURST 04/22 Released w/o Limitations [employer]([facility] jonelle [facility] Team B) [employer](Galen lepe [facility] Team B) OUTPATIENT [id number] chest congest ion ANGIE HURST 07/17 Released w/o Limitations [employer]([facility] jonelle [facility] Team B) [employer]([facility] Team B) OUTPATIENT [id number] Notes Entered by: ANGELA VIDAL 14 Jan 2019 0702 ------- ------- ------- ------- -- *Conges tion, fever of 102, sweats/ /A nytime GORAN MADRID 01/14 Immediate Referral [employer]([facility] Team B) [employer](BO C-Non Clinical) OUTPATIENT [id number] A / BRAULIO CHA 02/03 Released w/o Limitations [employer]([facility]Non Clin[facility]) [employer]([facility] Clinic Team B) OUTPATIENT [id number] discuss skin tag removal ANITA VALDEZ 06/02 Released w/o Limitations [employer]([facility] Team B) [employer]([facility]) TELE CONSULT [id number] Notes Entered by: ANGELA VIDAL 24 Nov 2019 0703 ------- ------- ------- ------- -- Cough, Congest ion, Dizzine ss since 11/22/19 MIHAI BAIN 11/24 Other Not Elsewhere Classified [employer]([facility]) [employer]([facility]) OUTPATIENT [id number] NARINDER RUSSELL 11/24 Sick at Home/Quarter s [employer]([facility]) [employer]([facility]) OUTPATIENT [id number] cough,c ongesti on BRIANNE HERRERA 11/27 Sick at Home/Quarter s [employer]([facility]) [employer]([facility]) TELE CONSULT [id number] Notes Entered by: NATALIA CORCORAN 22 Dec 2019 1130 ------- ------- ------- ------- -- [place] - [facility] MIHAI BAIN 12/22 Referred for Appointment [employer]([facility]) [employer]([facility]) TELE CONSULT [id number] Notes Entered by: ANGELA VIDAL 26 Dec 2019 0832 ------- ------- ------- ------- -- [facility] ed Vertigo Symptom s, feels like water is in ears MIHAI BAIN 12/26 Referred- Emergency Department [employer]([facility]) [facility]) TELE CONSULT [id number] Notes Entered by: SHANE ORTIZ 29 Dec 2019 1058 ------- ------- ------- ------- -- Network result - Dr Marcy crawford - 020 SHEY RICHARD 12/29 [facility] Team A) [facility](BO C) OUTPATIENT [id number] PHA/OMARA SARA AUGUSTIN 01/13 Released w/o Limitations [employer]([facility]) [employer]([facility]) OUTPATIENT [id number] dizzine ss x 1 month f/u ER, [facility] BEBE AVERY 01/18 Released w/o Limitations [employer]([facility]) [employer]([facility]) TELE CONSULT [id number] Notes Entered by: FIONA ASKEW 28 Jan 2020 0706 ------- ------- ------- ------- -- Referra jerrica CORCORAN DARCY Alma 01/27 Released to [employer]([facility]) [employer]([facility]) TELE CONSULT [id number] Notes Entered by: THOMAS MARADIAGA 05 Feb 2020 0942 ------- ------- ------- ------- -- network result neuro 01-29-20 BRAULIO LOVE 02/04 [facility] A) [facility]) TELE CONSULT [id number] Notes Entered by: MANDI CHAN 26 Apr 2020 1250 ------- ------- ------- ------- -- Request ing [facility]ur e BRAULIO LOVE 04/26 [facility] Team A) [facility]) TELE CONSULT [id number] Notes Entered by: VINH MEDINA 14 May 2020 0824 ------- ------- ------- ------- -- Sore throat/ cough MIHAI BAIN 05/14 Immediate Referral [facility]) [facility]) TELE CONSULT [id number] Notes Entered by: GOPAL MENDOZA 18 May 2020 1617 ------- ------- ------- ------- -- Network Results - Neurolo gy 05/18/20 BRAULIO LOVE 05/18 [facility] Team A) [facility]) TELE CONSULT [id number] Notes Entered by: SHANE ORTIZ 19 May 2020 0856 ------- ------- ------- ------- -- Network result - Neurolo gy - 020 BRAULIO LOVE 05/19 [employer]([facility] A[facility] [employer]([facility] OUTPATIENT [id number] REE/Ret rabia Jun SANDRAYVROSE Mark Anthony 12/08 Released w/o Limitations [employer](O ptometr y Clinic) [employer](BOM C) OUTPATIENT [id number] [phone] pha SARA Rodriguez 01/31 Released w/o Limitations [employer]([facility]) [employer]([facility]) TELE CONSULT [id number] Notes Entered by: PATRICIA MENDOZA 14 Feb 2021 1127 ------- ------- ------- ------- -- Possibl e sleep apnea ELIOT OCAMPO 02/14 Referred for Appointment [employer]([facility]) [employer]([facility]) OUTPATIENT [id number] [phone] Eval for possibl e sleep apnea BRAULIO LOVE 02/23 Released w/o Limitations [employer]([facility]) [employer]([facility]) OUTPATIENT [id number] fatigue , congest ion, cold symptom s NEVILLE MENDEZ 03/23 Released w/o Limitations [employer]([facility]) [employer]([facility]) TELE CONSULT [id number] Notes Entered by: PATRICIA MENDOZA 24 Mar 2021 1101 ------- ------- ------- ------- -- Medicat ion request DARCY CORCORAN 03/24 Released to Self Care [employer]([facility]) [employer]([facility]) OUTPATIENT [id number] VSHPE RET [id number] NoF2F enc/Franchesca udio d/t mission limitat ions r/t C19 NEVILLE MENDEZ 06/06 Released w/o Limitations [employer]([facility] Team A) Procedures Combined list of: 1) Procedures from Department of Veterans Affairs facilities going back up to thelast 18 months, not all VA non-surgical procedures are included; 2) All procedures from the Department of Defense facilities. Procedure Procedure Type Code Date Perfomer Comments Sourc e No data available for this section [facility] TELE ASSESS & MGT SRV PROV QUAL NONPHYS HLTH CARE PRO TO EST PAT,PARENT,GUARD NOT ORIG REL ASSESS & MGT SRV PROV W/IN PREV 7 DAYS NOR LEAD ASSESS & MGT SRV/PX W/IN NXT 24 HR/SOON APT;5-10 MIN MED DIS 2017 DoD ADMINISTRATION OF PATIENT-FOCUSED HEALTH RISK ASSESSMENT INSTRUMENT (EG, HEALTH HAZARD APPRAISAL) WITH SCORING AND DOCUMENTATION, PER STANDARDIZED INSTRUMENT 2017 DoD FITTING OF SPECTACLES, EXCEPT FOR APHAKIA; MONOFOCAL 2017 DoD TELE ASSESS & MGT SRV PROV QUAL NONPHYS HLTH CARE PRO TO EST PAT,PARENT,GUARD NOT ORIG REL ASSESS & MGT SRV PROV W/IN PREV 7 DAYS NOR LEAD ASSESS & MGT SRV/PX W/IN NXT 24 HR/SOON APT;5-10 MIN MED DIS 2017 DoD TELE ASSESS & MGT SRV PROV QUAL NONPHYS HLTH CARE PRO TO EST PAT,PARENT,GUARD NOT ORIG REL ASSESS & MGT SRV PROV W/IN PREV 7 DAYS NOR LEAD ASSESS & MGT SRV/PX W/IN NXT 24 HR/SOON APT;5-10 MIN MED DIS 2017 DoD PSYCHIATRIC EVALUATION OF HOSPITAL RECORDS, OTHER PSYCHIATRIC REPORTS, PSYCHOMETRIC AND/OR PROJECTIVE TESTS, AND OTHER ACCUMULATED DATA FOR MEDICALDIAGNOSTIC PURPOSES 2016 DoD FITTING OF SPECTACLES, EXCEPT FOR APHAKIA; MONOFOCAL 2010 DoD PSYCHOLOGICAL TSTING (INCL PSYCHODIAG ASSESSMNT, EMOTITY, INTELLECTUAL ABILITIES, PERSONALITY &PSYCHOPATHOLOGY, EG, MMPI), ADMINISTERED COMPUTER, W QUALIFIED HEALTH LADLE LINER INTERPRET &RPT 2009 DoD VIS FUNCT SCREEN,AUTOMAT/SEMI -AUTOMAT BILAT QUANT DETERM VISUAL ACUITY,OCULAR ALIGN,COLOR VISION,PSEUDOISOCHR OMAT PLATES,& FIELD VIS (MAY INC ALL/SOME SCRN DETERM FOR CONTRAST SENSITIV,VIS UND GLARE) 2009 DoD TELE ASSESS & MGT SRV PROV QUAL NONPHYS HLTH CARE PRO TO EST PAT,PARENT,GUARD NOT ORIG REL ASSESS & MGT SRV PROV W/IN PREV 7 DAYS NOR LEAD ASSESS & MGT SRV/PX W/IN NXT 24H/SOON APT; 11-20 MIN MED DIS 2015 DoD PRESSURIZED/NONPRES S INHAL TREAT FOR AC AIRWAY OBSTRUCT,THERAP PURPOSE &/FOR DIAG PURP SUCH SPUTUM INDUCTION W AN AEROSOL GEN,NEBULIZER,METER DOSE INHALER/INTERMIT POSIT PRESS BREATHING (IPPB) DEV 2015 DoD REMOVAL IMPACTED CERUMEN REQUIRING INSTRUMENTATION, UNILATERAL 2014 DoD OPHTHALMOLOGICAL SERVICES: MEDICAL EXAMINATION AND EVALUATION, WITH INITIATION OR CONTINUATION OF DIAGNOSTIC AND TREATMENT PROGRAM; INTERMEDIATE, ESTABLISHED PATIENT 2013 DoD DESTRUCTION (EG, LASER SURGERY, ELECTROSURGERY, CRYOSURGERY, CHEMOSURGERY, SURGICAL CURETTEMENT), OF BENIGN LESIONS OTHER THAN SKIN TAGS OR CUTANEOUS VASCULAR PROLIFERATIVE LESIONS; UP TO 14 LESIONS 2012 DoD SCREENING TEST OF VISUAL ACUITY, QUANTITATIVE, BILATERAL 2008 DoD SCREENING TEST OF VISUAL ACUITY, QUANTITATIVE, BILATERAL 2007 DoD INJECTION, PENICILLIN G BENZATHINE AND PENICILLIN G PROCAINE, UP TO 1,200,000 UNITS 2007 DoD ANKLE ORTHOSIS, ANKLE GAUNTLET OR SIMILAR, WITH OR WITHOUT JOINTS, PREFABRICATED, [id number] 2007 DoD TELE ASSESS & MGT SRV PROV QUAL NONPHYS HLTH CARE PRO TO EST PAT,PARENT,GUARD NOT ORIG REL ASSESS & MGT SRV PROV W/IN PREV 7 DAYS NOR LEAD ASSESS & MGT SRV/PX W/IN NXT 24 HR/SOON APT;5-10 MIN MED DIS 2020 DoD ADMINISTRATION OF PATIENT-FOCUSED HEALTH RISK ASSESSMENT INSTRUMENT (EG, HEALTH HAZARD APPRAISAL) WITH SCORING AND DOCUMENTATION, PER STANDARDIZED INSTRUMENT 2020 DoD FITTING OF SPECTACLES, EXCEPT FOR APHAKIA; MONOFOCAL 2020 DoD TELE ASSESS & MGT SRV PROV QUAL NONPHYS HLTH CARE PRO TO EST PAT,PARENT,GUARD NOT ORIG REL ASSESS & MGT SRV PROV W/IN PREV 7 DAYS NOR LEAD ASSESS & MGT SRV/PX W/IN NXT 24 HR/SOON APT;5-10 MIN MED DIS 2019 DoD ADMINISTRATION OF PATIENT-FOCUSED HEALTH RISK ASSESSMENT INSTRUMENT (EG, HEALTH HAZARD APPRAISAL) WITH SCORING AND DOCUMENTATION, PER STANDARDIZED INSTRUMENT 2019 DoD TELE ASSESS & MGT SRV PROV QUAL NONPHYS HLTH CARE PRO TO EST PAT,PARENT,GUARD NOT ORIG REL ASSESS & MGT SRV PROV W/IN PREV 7 DAYS NOR LEAD ASSESS & MGT SRV/PX W/IN NXT 24 HR/SOON APT;5-10 MIN MED DIS 2019 DoD TELE ASSESS & MGT SRV PROV QUAL NONPHYS HLTH CARE PRO TO EST PAT,PARENT,GUARD NOT ORIG REL ASSESS & MGT SRV PROV W/IN PREV 7 DAYS NOR LEAD ASSESS & MGT SRV/PX W/IN NXT 24 HR/SOON APT;5-10 MIN MED DIS 2019 DoD ADMINISTRATION OF PATIENT-FOCUSED HEALTH RISK ASSESSMENT INSTRUMENT (EG, HEALTH HAZARD APPRAISAL) WITH SCORING AND DOCUMENTATION, PER STANDARDIZED INSTRUMENT 2018 DoD TELE ASSESS & MGT SRV PROV QUAL NONPHYS HLTH CARE PRO TO EST PAT,PARENT,GUARD NOT ORIG REL ASSESS & MGT SRV PROV W/IN PREV 7 DAYS NOR LEAD ASSESS & MGT SRV/PX W/IN NXT 24 HR/SOON APT;5-10 MIN MED DIS 2018 DoD PSYCHIATRIC DIAGNOSTIC INTERVIEW EXAMINATION 2004 DoD INDIVIDUAL PSYCHOTHERAPY, INSIGHT ORIENTED, BEHAVIOR MODIFYING AND/OR SUPPORTIVE, IN AN OFFICE OR OUTPATIENT FACILITY, APPROXIMATELY 20 TO 30 MINUTES [id number] WITH THE PATIENT 2004 DoD INDIVIDUAL PSYCHOTHERAPY, INSIGHT ORIENTED, BEHAVIOR MODIFYING AND/OR SUPPORTIVE, IN AN OFFICE OR OUTPATIENT FACILITY, APPROXIMATELY 20 TO 30 MINUTES [id number] WITH THE PATIENT 2004 DoD FITTING OF SPECTACLES, EXCEPT FOR APHAKIA; MONOFOCAL 2003 DoD INDIVIDUAL PSYCHOTHERAPY, INSIGHT ORIENTED, BEHAVIOR MODIFYING AND/OR SUPPORTIVE, IN AN OFFICE OR OUTPATIENT FACILITY, APPROXIMATELY 20 TO 30 MINUTES [id number] WITH THE PATIENT 2003 DoD INDIVIDUAL PSYCHOTHERAPY, INSIGHT ORIENTED, BEHAVIOR MODIFYING AND/OR SUPPORTIVE, IN AN OFFICE OR OUTPATIENT FACILITY, APPROXIMATELY 20 TO 30 MINUTES [id number] WITH THE PATIENT 2003 DoD PSYCHIATRIC DIAGNOSTIC INTERVIEW EXAMINATION 2003 DoD INDIVIDUAL PSYCHOTHERAPY, INSIGHT ORIENTED, BEHAVIOR MODIFYING AND/OR SUPPORTIVE, IN AN OFFICE OR OUTPATIENT FACILITY, APPROXIMATELY 20 TO 30 MINUTES [id number] WITH THE PATIENT 2003 DoD DESTRUCT (EG, LASER SURGERY, ELECTROSURGERY, CRYOSURGERY, CHEMOSURGERY, SURGICAL CURETTEMENT), PREMALIGNANT LESIONS (EG, ACTINIC KERATOSES); 2ND THRU 14 LESIONS, EA (LIST SEP ADDITION CD, 1ST LESION) 2003 DoD PHARMACOLOGIC MANAGEMENT, INCLUDING PRESCRIPTION, USE, AND REVIEW OF MEDICATION WITH NO MORE THAN MINIMAL MEDICAL PSYCHOTHERAPY 2003 DoD PSYCHIATRIC DIAGNOSTIC INTERVIEW EXAMINATION 2003 DoD PHARMACOLOGIC MANAGEMENT, INCLUDING PRESCRIPTION, USE, AND REVIEW OF MEDICATION WITH NO MORE THAN MINIMAL MEDICAL PSYCHOTHERAPY 2003 DoD DESTRUCTION (EG, LASER SURGERY, ELECTROSURGERY, CRYOSURGERY, CHEMOSURGERY, SURGICAL CURETTEMENT), PREMALIGNANT LESIONS (EG, ACTINIC KERATOSES); FIRST LESION 2003 DoD SHAVING OF EPIDERMAL OR DERMAL LESION, SINGLE LESION, SCALP, NECK, HANDS, FEET, GENITALIA; LESION DIAMETER 0.6 TO 1.0 CM 2003 DoD PSYCHOLOGICAL TESTING (INCLUDES PSYCHODIAGNOSTIC ASSESSMENT OF PERSONALITY PSYCHOPATHOLOGY, EMOTIONALITY, INTELLECTUAL ABILITIES, EG, WAIS-R, RORSCHACH, MMPI) WITH INTERPRETATION AND REPORT, PER HOUR 2003 DoD FAMILY PSYCHOTHERAPY (CONJOINT PSYCHOTHERAPY) (WITH PATIENT PRESENT), 50 MINUTES 2003 DoD INDIVIDUAL PSYCHOTHERAPY, INSIGHT ORIENTED, BEHAVIOR MODIFYING AND/OR SUPPORTIVE, IN AN OFFICE OR OUTPATIENT FACILITY, APPROXIMATELY 45 TO 50 MINUTES [id number] WITH THE PATIENT 2003 DoD FAMILY PSYCHOTHERAPY (CONJOINT PSYCHOTHERAPY) (WITH PATIENT PRESENT), 50 MINUTES 2002 DoD INDIVIDUAL PSYCHOTHERAPY, INSIGHT ORIENTED, BEHAVIOR MODIFYING AND/OR SUPPORTIVE, IN AN OFFICE OR OUTPATIENT FACILITY, APPROXIMATELY 45 TO 50 MINUTES [id number] WITH THE PATIENT 2002 DoD FAMILY PSYCHOTHERAPY (CONJOINT PSYCHOTHERAPY) (WITH PATIENT PRESENT), 50 MINUTES 2002 DoD DESTRUCTION (EG, LASER SURGERY, ELECTROSURGERY, CRYOSURGERY, CHEMOSURGERY, SURGICAL CURETTEMENT), PREMALIGNANT LESIONS (EG, ACTINIC KERATOSES); FIRST LESION 2002 DoD INDIVIDUAL PSYCHOTHERAPY, INSIGHT ORIENTED, BEHAVIOR MODIFYING AND/OR SUPPORTIVE, IN AN OFFICE OR OUTPATIENT FACILITY, APPROXIMATELY 45 TO 50 MINUTES [id number] WITH THE PATIENT 2002 [facility] FAMILY PSYCHOTHERAPY (CONJOINT PSYCHOTHERAPY) (WITH PATIENT PRESENT), 50 MINUTES 2002 [facility] REMOVAL OF IMPACTED CERUMEN (ONE OR BOTH EARS) BY PHYSICIAN ON SAME DATE OF SERVICE AUDIOLOGIC FUNCTION TESTING 2002 [facility] Non-Physician Phone Call To Patient/Provider Brief (5-10min) Non-Physician Phone Call To Patient/Provider Brief (5-10min) [id number] 2018 GORAN HALE [facility] Non-Physician Phone Call To Patient/Provider Brief (5-10min) Non-Physician Phone Call To Patient/Provider Brief (5-10min) [id number] 2017 DEWAYNE KELLY [facility] Non-Physician Phone Call To Patient/Provider Brief (5-10min) Non-Physician Phone Call To Patient/Provider Brief (5-10min) [id number] 2017 MORIAH BYNUM [facility] [employer] Fitting Monofocals (Not For Aphakia) [employer] Fitting Monofocals (Not For Aphakia) [id number] 2017 SIVAN CHARLES [facility] Determination Of Refractive State Determination Of Refractive State [id number] 2017 SIVAN CHARLES [facility] Ophthalmological New Patient Start Comprehensive Care Ophthalmological New Patient Start Comprehensive Care [id number] 2017 SIVAN CHARLES [facility] Non-Physician Phone Call To Patient/Provider Brief (5-10min) Non-Physician Phone Call To Patient/Provider Brief (5-10min) [id number] 2017 DEWAYNE KELLY [facility] Non-Physician Phone Call To Patient/Provider Brief (5-10min) Non-Physician Phone Call To Patient/Provider Brief (5-10min) [id number] 2017 DEWAYNE KELLY [facility] Psychiatric Evaluation Review of Records and Reports Psychiatric Evaluation Review of Records and Reports [id number] 2016 MARY LANDA [facility] Respiratory Equip IPPB Related Equip Nebulizer Respiratory Equip IPPB Related Equip Nebulizer [id number] 2015 KANA POWERS [facility] Non-Physician Phone Call To Pt/Provider Intermed (11-20 min) Non-Physician Phone Call To Pt/Provider Intermed (11-20 min) [id number] 2015 TOYIN DAVID [facility] Cerumen Removal Right Ear Cerumen Removal Right Ear [id number] 2014 KANA POWERS [facility] Ophthalmological Prior Patient Start Intermediate Level Care Ophthalmological Prior Patient Start Intermediate Level Care [id number] 2013 RANDY ROMAN [facility] Destruction Of Flat Warts By Cryosurgery Up To 14 Lesions Destruction Of Flat Warts By Cryosurgery Up To 14 Lesions [id number] 2012 ALONDRA BEAVERS [facility] Ophthalmological Prior Patient Start Comprehensive Care Ophthalmological Prior Patient Start Comprehensive Care [id number] 2010 WANDA NICOLE [facility] Determination Of Refractive State Determination Of Refractive State [id number] 2010 WANDA NICOLE [employer] Fitting Monofocals (Not For Aphakia) [employer] Fitting Monofocals (Not For Aphakia) [id number] 2010 WANDA NICOLE [facility] Psychologic Testing And Report Administered By Computer Psychologic Testing And Report Administered By Computer [id number] 2009 JUAN PASTRANA [facility] Visual Function Screening Visual Function Screening [id number] 2009 CJ LARA [facility] Injection, betamethasone acetate 3 mg and betamethasone sodium phosphate 3 mg 2007 CORNELIA GENAO pt. recieved 1.2 mil Bicillin in left glute with 21 gauge needle. pt. also received 6 mg celestone to right glute at approximately 1135 hours. pt. response normal. Celestone exp.11/2009 lot#[id number]. [facility] Injection, penicillin G benzathine and penicillin G procaine, up to 1,200,000 units [address] Supervised Injection Intramuscular Supervised Injection Intramuscular [id number] 2007 CORNELIA GENAO Ankle orthosis, ankle gauntlet or similar, with or without joints, prefabricated, [id number] 2007 RENATA JUARES [facility] Psychiatric Evaluation Review of Records and Reports Psychiatric Evaluation Review of Records and Reports [id number] 2005 ZABRINA MCCOY [facility] Non-Physician Phone Call To Patient/Provider Brief (5-10min) Non-Physician Phone Call To Patient/Provider Brief (5-10min) [id number] MIHAI BAIN [facility] Ophthalmological New Patient Start Comprehensive Care Ophthalmological New Patient Start Comprehensive Care [id number] [facility] Determination Of Refractive State Determination Of Refractive State [id number] [facility] [employer] Fitting Monofocals (Not For Aphakia) [employer] Fitting Monofocals (Not For Aphakia) [id number] [facility] Social History Combined list of available smoking, tobacco, and other social history from [facility] facilities. Social History Type Response Date Comment Sour e This section is an empty social history section. [facility] Assessment and Plan Combined list of future care activities from [facility] facilities (e.g., assessment and plan notes, appointments, orders, and referrals). Additional future care activities may be listed in the Plan of Care section. Result Assessment and Plan Date Source Assessment and Plan No data available for this section 06/01/2025 Ambulatory Pharmacy Functional Status Combined list of recent functional and cognitive assessments recorded at [facility] Functional [place] Measurement (FIM) Scale: 1 = Total Assistance (Subject = 0% +), 2 = Maximal Assistance (Subject = 25% +), 3 = Moderate Assistance (Subject = 50% +), 4 = Minimal Assistance (Subject = 75% +), 5 = Supervision, 6 = Modified [place] (Device), 7 = Complete [place] (Timely, Safely). Assessment Date/Time Source Assessment Type Assessment Skill Assessment Score Assessment Details No data available for this section
--- OUTSIDE RECORDS SUMMARY | 2025-06-01 14:02 | XMS_ITS | Data Portability ---
Author Organization [place] [facility] [employer], Main Office Address [address] [place] [id number] Care Team Providers Care Stick Puller Name Role Phone YARIEL RYAN Primary Care Provider Assessment Encounter Date Assessment Date Assessment LastModified by Organization Details LastModified Time 03/05/2025 03/05/2025 44 yo M with - [...] on next visit. Annual labs in 03/14. [email or web address] Not available 03/05/2025 12:39:03 03/19/2025 03/19/2025 44 [...] before next visit. Annual labs in 03/14. [email or web address] Not available 03/19/2025 12:57:39 04/09/2025 04/09/2025 D/w pt about his findings and further options for this. Answered all questions for pt. Advised pt to get checked out in ED for further evaluation. Pt agreed. Pt wants to drive by himself. F/u as per ED MD's recommendations . [email or web address] Not available 04/09/2025 13:03:35 Plan of Treatment Reminders Order Date Submit Date Provider Last Modified By Organization Details Last Modified Time Details Appointments Follow Up 15 2024 10:00A Prince Ryan MD Not available Not available Not available Lab hepatic function panel, serum 2024 025 [email or web address] [facility] (Lab), [address] [place], [address], 03/19/2025 12:49:29 hepatitis panel (A+B+C), acute, serum [address] (Lab), [address] [place], [address], 03/26/2025 11:40:18 lipid panel, serum 2024 025 [email or web address] [facility] (Lab), [address] [place], [address], 03/19/2025 12:49:29 CMP, serum or plasma [address] (Lab), [address] [place], [address], 03/05/2025 14:18:11 CBC w/ auto diff [address] [facility] (Lab), [address] [place], [address], 03/05/2025 19:29:48 lipid panel, blood [address] (Lab), [address] [place], [address], 03/17/2025 14:42:44 TSH, serum, reflex free T4 [address] (Lab), [address] [place], [address], 03/12/2025 16:38:47 PSA, serum or plasma [address] (Lab), [address] [place], [address], 03/12/2025 16:38:47 urinalysi s complete, reflex culture [address] (Lab), [address] [place], [address], 03/05/2025 14:18:53 glycohemo globin, total, blood [address] [facility] (Lab), [address] [place], [address], 03/05/2025 20:19:20 vitamin D, 25-hydrox y, total, serum [address] (Lab), [address] [place], [address], 03/12/2025 16:38:48 Referral gastroent erologist referral - Vague abdominal pain, labs, x-ray and US done - neg. Please call patient to schedule an appointme nt. Thank you. 2024 025 GOLDEN will MD, [address], [address], [place], [address], 05/05/2025 12:30:43 Procedures None recorded. Surgeries None recorded. Imaging US, abdomen, limited - US Liver, GB, pancrease [address] [facility] [address] [facility], [address], [place], [address], 03/26/2025 14:08:46 Medication Orders pantopraz ole 40 mg tablet,de layed release 2024 025 [facility], [address] [place] [address], [id number], 05/05/2025 10:50:41 fluticaso ne propionat e 50 mcg/actua tion nasal spray,norberto pension 2024 025 [facility], [address] [place] [address], [id number], 03/19/2025 12:49:39 loratadin e 10 mg tablet 2024 025 [facility], [address] [place] [address], [id number], 03/19/2025 12:49:38 ergocalci ferol (vitamin D2) 1,250 mcg (50,000 unit) capsule 2024 025 [facility], [address] [place] [address], [id number], 03/19/2025 12:49:40 atorvasta tin 10 mg tablet 2024 025 [facility], [address] [place] [address], [id number], 03/19/2025 12:49:40 fluticaso ne propionat e 50 mcg/actua tion nasal spray,norberto geeon 2024 025 [facility], [address] [place] [address], [id number], 03/05/2025 12:26:33 loratadin e 10 mg tablet 2024 025 [facility], [address] [place] [address], [id number], 03/05/2025 12:26:34 Kenalog 40 mg/mL suspensio n for injection 2024 025 [email or web address] Not available 03/05/2025 13:01:47 Debrox 6.5 % ear drops 2024 025 [facility], [address] [place] [address], [place], [address], 03/05/2025 12:29:04 triamcino lone acetonide 0.1 % topical cream 2024 025 [facility], [address] [place] [address], [id number], 03/05/2025 12:26:33 hydrocort isone 2.5 % topical cream with perineal applicato r 2024 025 [facility], [address] [place] [address], [id number], 03/05/2025 12:39:50 Patient TargetsNo targets recorded. Patient Instructions Encounter Date Encounter Id Patient Instructions Last Modified By Organization Details Last Modified Time 03/05/2025 [id number] high cholesterol : care instructions Not available 03/05/2025 12:26:29 hemorrhoids: car e instructions [email or web address] Not available 03/05/2025 12:26:29 03/19/2025 [id number] hemorrhoids: car e instructions Not available 03/19/2025 12:49:29 high cholesterol : care instructions [email or web address] Not available 03/19/2025 12:49:28 Reason for Referral Director Of Channel Marketing Referral for Generalized abdominal pain Vague abdominal pain, labs, x-ray and US done - neg. Vague abdominal pain, labs, x-ray and US done - neg. Please call patient to schedule an appointment. Thank you. Referring Physician: Yariel Ryan, Family Medicine, Encounter Date: 05/05/2025 Results Created Date Observation Date Name Description Value Unit Range Abnormal Flag Note LastModifiedBy Organization Detail LastModifiedTime 03/13/20 24 03/13/2024 CBC/C OMPLE TE BLD COUNT W/DIF F white blood cells 4.0 x10'3 /uL 4.2-10 .8 low Not Available [facility] (Lab) [address] [place], [address], 03/13/2024 14:06:06 03/13/20 24 03/13/2024 CBC/C OMPLE TE BLD COUNT W/DIF F red blood cells 4.85 x10'6 /uL 4.10-5 .80 Not Available [facility] (Lab) [address] [place], [address], 03/13/2024 14:06:06 03/13/20 24 03/13/2024 CBC/C OMPLE TE BLD COUNT W/DIF F hemoglobin 15.8 g/dL 13.2-1 7.0 Not Available [facility] (Lab) [address] [place], [address], 03/13/2024 14:06:06 03/13/20 24 03/13/2024 CBC/C OMPLE TE BLD COUNT W/DIF F hematocrit 45.1 % 39.3-5 0.0 Not Available [facility] (Lab) [address] [place], [address], 03/13/2024 14:06:06 03/13/20 24 03/13/2024 CBC/C OMPLE TE BLD COUNT W/DIF F mean red cell volume 93.0 fL 80.0-9 7.0 Not Available [facility] (Lab) [address] [place], [address], 03/13/2024 14:06:06 03/13/20 24 03/13/2024 CBC/C OMPLE TE BLD COUNT W/DIF F mean red cell hemoglobin 32.6 pg 27.0-3 3.0 Not Available [facility] (Lab) [address] [place], [address], 03/13/2024 14:06:06 03/13/20 24 03/13/2024 CBC/C OMPLE TE BLD COUNT W/DIF F mean RBC HGB concentratio n 35.0 g/dL 31.0-3 6.0 Not Available [facility] (Lab) [address] [place], [address], 03/13/2024 14:06:06 03/13/20 24 03/13/2024 CBC/C OMPLE TE BLD COUNT W/DIF F red cell distribution width 12.4 % 11.8-1 5.5 Not Available [facility] (Lab) [address] [place], [address], 03/13/2024 14:06:06 03/13/20 24 03/13/2024 CBC/C OMPLE TE BLD COUNT W/DIF F platelets 199 x10'3 /uL 150-40 0 Not Available [facility] (Lab) [address] [place], [address], 03/13/2024 14:06:06 03/13/20 24 03/13/2024 CBC/C OMPLE TE BLD COUNT W/DIF F mean platelet volume 9.3 fL 9.0-12 .4 Not Available [facility] (Lab) [address] [place], [address], 03/13/2024 14:06:06 03/13/20 24 03/13/2024 CBC/C OMPLE TE BLD COUNT W/DIF F neutrophils 53.9 % 39.0-7 2.0 Not Available [facility] (Lab) [address] [place], [address], 03/13/2024 14:06:06 03/13/20 24 03/13/2024 CBC/C OMPLE TE BLD COUNT W/DIF F lymphocytes 34.2 % 16.0-4 7.0 Not Available [facility] (Lab) [address] [place], [address], 03/13/2024 14:06:06 03/13/20 24 03/13/2024 CBC/C OMPLE TE BLD COUNT W/DIF F monocytes 7.1 % 5.0-12 .0 Not Available [facility] (Lab) [address] [place], [address], 03/13/2024 14:06:06 03/13/20 24 03/13/2024 CBC/C OMPLE TE BLD COUNT W/DIF F eosinophils 3.5 % 1.0-7. 0 Not Available [facility] (Lab) [address] [place], [address], 03/13/2024 14:06:06 03/13/20 24 03/13/2024 CBC/C OMPLE TE BLD COUNT W/DIF F basophils 0.8 % 0.0-2. 0 Not Available [facility] (Lab) [address] [place], [address], 03/13/2024 14:06:06 03/13/20 24 03/13/2024 CBC/C OMPLE TE BLD COUNT W/DIF F immature granulocytes 0.5 % 0.00-0 .50 Not Available [facility] (Lab) [address] [place], [address], 03/13/2024 14:06:06 03/13/20 24 03/13/2024 CBC/C OMPLE TE BLD COUNT W/DIF F neutrophils, absolute count 2.13 x10'3 /uL 1.5-8. 0 Not Available [facility] (Lab) [address] [place], [address], 03/13/2024 14:06:06 03/13/20 24 03/13/2024 CBC/C OMPLE TE BLD COUNT W/DIF F lymphocytes, absolute count 1.35 x10'3 /uL 1.07-3 .43 Not Available [facility] (Lab) [address] [place], [address], 03/13/2024 14:06:06 03/13/20 24 03/13/2024 CBC/C OMPLE TE BLD COUNT W/DIF F monocytes, absolute count 0.28 x10'3 /uL 0.29-0 .99 low Not Available [facility] (Lab) [address] [place], [address], 03/13/2024 14:06:06 03/13/20 24 03/13/2024 CBC/C OMPLE TE BLD COUNT W/DIF F eosinophils, absolute count 0.14 x10'3 /uL 0.02-0 .53 Not Available [facility] (Lab) [address] [place], [address], 03/13/2024 14:06:06 03/13/20 24 03/13/2024 CBC/C OMPLE TE BLD COUNT W/DIF F basophils, absolute count 0.03 x10'3 /uL 0.01-0 .08 Not Available [facility] (Lab) [address] [place], [address], 03/13/2024 14:06:06 03/13/20 24 03/13/2024 CBC/C OMPLE TE BLD COUNT W/DIF F immature granulocytes ,absolute 0.02 x10'3 /uL 0.00-0 .05 Not Available [facility] (Lab) [address] [place], [address], 03/13/2024 14:06:06 03/13/20 24 03/13/2024 CBC/C OMPLE TE BLD COUNT W/DIF F nucleated red blood cells 0.0 % -0 Not Available [facility] (Lab) [address] [place], [address], 03/13/2024 14:06:06 03/13/20 24 03/13/2024 CBC/C OMPLE TE BLD COUNT W/DIF F NRBC# 0.00 x10'3 /uL Not Available [facility] (Lab) [address] [place], [address], 03/13/2024 14:06:06 03/13/20 24 03/13/2024 COMPR EHENS MELVIN METAB OLIC PANEL sodium 139 mmol/ L 137-14 5 Not Available [facility] (Lab) [address] [place], [address], 03/13/2024 14:19:50 03/13/20 24 03/13/2024 COMPR EHENS MELVIN METAB OLIC PANEL potassium 4.5 mmol/ L 3.5-5. 1 Not Available [facility] (Lab) [address] [place], [address], 03/13/2024 14:19:50 03/13/20 24 03/13/2024 COMPR EHENS MELVIN METAB OLIC PANEL chloride 103 mmol/ L 98-107 Not Available [facility] (Lab) [address] [place], [address], 03/13/2024 14:19:50 03/13/20 24 03/13/2024 COMPR EHENS MELVIN METAB OLIC PANEL carbon dioxide 29 mmol/ L 22-30 Not Available [facility] (Lab) [address] [place], [address], 03/13/2024 14:19:50 03/13/20 24 03/13/2024 COMPR EHENS MELVIN METAB OLIC PANEL anion gap 11.5 mmol/ L 14-22 low Not Available [facility] (Lab) [address] [place], [address], 03/13/2024 14:19:50 03/13/20 24 03/13/2024 COMPR EHENS MELVIN METAB OLIC PANEL glucose 89 mg/dL 70-99 Not Available [facility] (Lab) [address] [place], [address], 03/13/2024 14:19:50 03/13/20 24 03/13/2024 COMPR EHENS MELVIN METAB OLIC PANEL BUN 11 mg/dL 8-19 Not Available [facility] (Lab) [address] [place], [address], 03/13/2024 14:19:50 03/13/20 24 03/13/2024 COMPR EHENS MELVIN METAB OLIC PANEL creatinine 0.95 mg/dL 0.66-1 .25 Not Available [facility] (Lab) [address] [place], [address], 03/13/2024 14:19:50 03/13/2003/13/2024 COMPR EHENS MELVIN METAB OLIC PANEL GFR >60 Refer ence Range : [place] ge GFR Healt hy Adult : >60 [...] calcu lator is avail able on the [facility] websi te: https ://ww w.kid [place]ton.o rg/pr ofess ional s/kdo qi/gf r_cal culat or Not Available [facility] (Lab) [address] [place], [address], 03/13/2024 14:19:50 03/13/20 24 03/13/2024 COMPR EHENS MELVIN METAB OLIC PANEL alkaline phosphatase 55 U/L 38-126 Not Available [facility] (Lab) [address] [place], [address], 03/13/2024 14:19:50 03/13/20 24 03/13/2024 COMPR EHENS MELVIN METAB OLIC PANEL alanine aminotransfe rase 50 U/L 0-50 Not Available [facility] (Lab) [address] [place], [address], 03/13/2024 14:19:50 03/13/20 24 03/13/2024 COMPR EHENS MELVIN METAB OLIC PANEL aspartate aminotransfe rase 41 U/L 15-46 Not Available [facility] (Lab) [address] [place], [address], 03/13/2024 14:19:50 03/13/20 24 03/13/2024 COMPR EHENS MELVIN METAB OLIC PANEL bilirubin, total 1.00 mg/dL 0.20-1 .30 Not Available [facility] (Lab) [address] [place], [address], 03/13/2024 14:19:50 03/13/20 24 03/13/2024 COMPR EHENS MELVIN METAB OLIC PANEL calcium 9.3 mg/dL 8.4-10 .2 Not Available [facility] (Lab) [address] [place], [address], 03/13/2024 14:19:50 03/13/20 24 03/13/2024 COMPR EHENS MELVIN METAB OLIC PANEL total protein 6.4 g/dL 6.3-8. 2 Not Available [facility] (Lab) [address] [place], [address], 03/13/2024 14:19:50 03/13/20 24 03/13/2024 COMPR EHENS MELVIN METAB OLIC PANEL albumin 4.4 g/dL 3.4-5. 0 Not Available [facility] (Lab) [address] [place], [address], 03/13/2024 14:19:50 03/13/20 24 03/13/2024 COMPR EHENS MELVIN METAB OLIC PANEL globulin 2.0 g/dL 2.6-4. 2 low Not Available [facility] (Lab) [address] [place], [address], 03/13/2024 14:19:50 03/13/20 24 03/13/2024 COMPR EHENS MELVIN METAB OLIC PANEL A/G ratio 2.2 ratio 1.0-2. 0 high Not Available [facility] (Lab) [address] [place], [address], 03/13/2024 14:19:50 03/13/20 24 03/13/2024 LIPID PANEL cholesterol 210 mg/dL 140-19 9 high NIH BANDAR NSUS RECOM MENDA TION FOR GIGI STERO L: ADULT CHILD LOW RISK: <200 <170 BORDE RLINE : <200- 239 ----- HIGH RISK: >240 >200 Not Available [facility] (Lab) [address] [place], [address], 03/13/2024 14:19:53 03/13/20 24 03/13/2024 LIPID PANEL triglyceride s 82 mg/dL 0-150 NIH BANDAR NSUS REPOR T RECOM MENDA TION FOR TRIGL YCERI AARON: ADULT CHILD LOW RISK: <150 ----- BODER LINE: 150-1 99 ----- HIGH RISK: >200 ----- Not Available [facility] (Lab) [address] [place], [address], 03/13/2024 14:19:53 03/13/20 24 03/13/2024 LIPID PANEL HDL cholesterol 73 mg/dL 40- Not Available [facility] (Lab) [address] [place], [address], 03/13/2024 14:19:53 03/13/20 24 03/13/2024 LIPID PANEL [...] WILL NOT BE REPOR XANDER. Not Available [facility] (Lab) [address] [place], [address], 03/13/2024 14:19:53 03/13/20 24 03/13/2024 VITAM IN D 25-HY DROXY [id number] 14.3 NG/mL 30-100 low Vitam in D Statu s: Defic ient: <20 ng/mL Insuf ficie nt: 20-29 ng/mL Suffi cient : 30-10 0 ng/mL Not Available [facility] (Lab) [address] [place], [address], 03/13/2024 14:33:39 03/13/20 24 03/13/2024 T4 FREE free T4 1.11 NG/dL 0.78-2 .19 Not Available [facility] (Lab) [address] [place], [address], 03/13/2024 14:34:19 03/13/2003/13/2024 URINA LYSIS COMPL ETE/I RIS W/RFX color YELLOW Not Available [facility] (Lab) [address] [place], [address], 03/13/2024 14:53:10 03/13/20 24 03/13/2024 URINA LYSIS COMPL ETE/I RIS W/RFX appear CLEAR Not Available [facility] (Lab) [address] [place], [address], 03/13/2024 14:53:10 03/13/20 24 03/13/2024 URINA LYSIS COMPL ETE/I RIS W/RFX specific gravity 1.019 1.001- 1.030 Not Available [facility] (Lab) [address] [place], [address], 03/13/2024 14:53:10 03/13/20 24 03/13/2024 URINA LYSIS COMPL ETE/I RIS W/RFX pH 6.5 pH_un its 5.0-9. 0 Not Available [facility] (Lab) [address] [place], [address], 03/13/2024 14:53:10 03/13/20 24 03/13/2024 URINA LYSIS COMPL ETE/I RIS W/RFX leukocytes NEGATI VE marj/u L negati ve- Not Available [facility] (Lab) [address] [place], [address], 03/13/2024 14:53:10 03/13/20 24 03/13/2024 URINA LYSIS COMPL ETE/I RIS W/RFX nitrite NEGATI VE negati ve- Not Available [facility] (Lab) [address] [place], [address], 03/13/2024 14:53:10 03/13/20 24 03/13/2024 URINA LYSIS COMPL ETE/I RIS W/RFX protein NEGATI VE mg/dL negati ve- Not Available [facility] (Lab) [address] [place], [address], 03/13/2024 14:53:10 03/13/20 24 03/13/2024 URINA LYSIS COMPL ETE/I RIS W/RFX glucose NORMAL mg/dL normal - Not Available [facility] (Lab) [address] [place], [address], 03/13/2024 14:53:10 03/13/20 24 03/13/2024 URINA LYSIS COMPL ETE/I RIS W/RFX ketones NEGATI VE mg/dL negati ve- Not Available [facility] (Lab) [address] [place], [address], 03/13/2024 14:53:10 03/13/20 24 03/13/2024 URINA LYSIS COMPL ETE/I RIS W/RFX urobilinogen NORMAL mg/dL normal - Not Available [facility] (Lab) [address] [place], [address], 03/13/2024 14:53:10 03/13/20 24 03/13/2024 URINA LYSIS COMPL ETE/I RIS W/RFX bilirubin NEGATI VE mg/dL negati ve- Not Available [facility] (Lab) [address] [place], [address], 03/13/2024 14:53:10 03/13/20 24 03/13/2024 URINA LYSIS COMPL ETE/I RIS W/RFX blood NEGATI VE mg/dL negati ve- Not Available [facility] (Lab) [address] [place], [address], 03/13/2024 14:53:10 04/25/03/13/2024 URINA LYSIS COMPL ETE/I RIS W/RFX white blood cells 0-8 /i??h pfi?? 0-8 Not Available [facility] (Lab) [address] [facility] [place], [address], 03/13/2024 14:53:10 03/13/20 24 03/13/2024 URINA LYSIS COMPL ETE/I RIS W/RFX red blood cells 0-4 /i??h pfi?? 0-4 Not Available [facility] (Lab) [address] [place], [address], 03/13/2024 14:53:10 03/13/20 24 03/13/2024 URINA LYSIS COMPL ETE/I RIS W/RFX bacteria NONE Not Available [facility] (Lab) [address] [place], [address], 03/13/2024 14:53:10 03/13/20 24 03/13/2024 URINA LYSIS COMPL ETE/I RIS W/RFX mucous OCCASI ONAL /i??l pfi?? abnormal Not Available [facility] (Lab) [address] [place], [address], 03/13/2024 14:53:10 03/13/20 24 03/13/2024 URINA LYSIS COMPL ETE/I RIS W/RFX squamous epithelial NONE /i??l pfi?? abnormal Not Available [facility] (Lab) [address] [place], [address], 03/13/2024 14:53:10 03/13/20 24 03/13/2024 TSH thyroid-stim ulating hormone 0.855 uIU/m L 0.465- 4.680 Not Available [facility] (Lab) [address] [place], [address], 03/13/2024 15:15:58 03/13/20 24 03/13/2024 PSA, TOTAL PSA, total 1.83 NG/mL 0.00-4 .00 Not Available [facility] (Lab) [address] [place], [address], 03/13/2024 15:16:10 03/13/20 24 03/13/2024 HEMOG LOBIN A1C HA1C 4.8 % 4.0-6. 0 Diabe kranthi Scree sincere Crite glenn: <5.7% Consi stent with absen ce of diabe kranthi 5.7-6 .4% Consi stent with incre ased risk for diabe kranthi (pred iabet es) >OR=6 .5% Consi stent with diabe kranthi REFER ENCE: Diabe kranthi Care 2016, 39(Cardona ppl.1 ):s13 -s22 Not Available [facility] (Lab) [address] [place], [address], 03/13/2024 21:46:16 03/05/20 25 03/05/2025 CBC/C OMPLE TE BLD COUNT W/DIF F white blood cells 4.1 x10'3 /uL 4.2-10 .8 low Not Available [facility] (Lab) [address] [place], [address], 03/05/2025 19:29:48 03/05/20 25 03/05/2025 CBC/C OMPLE TE BLD COUNT W/DIF F red blood cells 5.05 x10'6 /uL 4.10-5 .80 Not Available [facility] (Lab) [address] [place], [address], 03/05/2025 19:29:48 03/05/20 25 03/05/2025 CBC/C OMPLE TE BLD COUNT W/DIF F hemoglobin 16.4 g/dL 13.2-1 7.0 Not Available [facility] (Lab) [address] [place], [address], 03/05/2025 19:29:48 03/05/20 25 03/05/2025 CBC/C OMPLE TE BLD COUNT W/DIF F hematocrit 47.3 % 39.3-5 0.0 Not Available [facility] (Lab) [address] [place], [address], 03/05/2025 19:29:48 03/05/20 25 03/05/2025 CBC/C OMPLE TE BLD COUNT W/DIF F mean red cell volume 93.7 fL 80.0-9 7.0 Not Available [facility] (Lab) [address] [place], [address], 03/05/2025 19:29:48 03/05/20 25 03/05/2025 CBC/C OMPLE TE BLD COUNT W/DIF F mean red cell hemoglobin 32.5 pg 27.0-3 3.0 Not Available [facility] (Lab) [address] [place], [address], 03/05/2025 19:29:48 03/05/20 25 03/05/2025 CBC/C OMPLE TE BLD COUNT W/DIF F mean RBC HGB concentratio n 34.7 g/dL 31.0-3 6.0 Not Available [facility] (Lab) [address] [place], [address], 03/05/2025 19:29:48 03/05/20 25 03/05/2025 CBC/C OMPLE TE BLD COUNT W/DIF F red cell distribution width 12.0 % 11.8-1 5.5 Not Available [facility] (Lab) [address] [place], [address], 03/05/2025 19:29:48 03/05/20 25 03/05/2025 CBC/C OMPLE TE BLD COUNT W/DIF F platelets 218 x10'3 /uL 150-40 0 Not Available [facility] (Lab) [address] [place], [address], 03/05/2025 19:29:48 03/05/20 25 03/05/2025 CBC/C OMPLE TE BLD COUNT W/DIF F mean platelet volume 9.3 fL 9.0-12 .4 Not Available [facility] (Lab) [address] [place], [address], 03/05/2025 19:29:48 03/05/20 25 03/05/2025 CBC/C OMPLE TE BLD COUNT W/DIF F neutrophils 51.2 % 39.0-7 2.0 Not Available [facility] (Lab) [address] [place], [address], 03/05/2025 19:29:48 03/05/20 25 03/05/2025 CBC/C OMPLE TE BLD COUNT W/DIF F lymphocytes 37.3 % 16.0-4 7.0 Not Available [facility] (Lab) [address] [place], [address], 03/05/2025 19:29:48 03/05/20 25 03/05/2025 CBC/C OMPLE TE BLD COUNT W/DIF F monocytes 8.1 % 5.0-12 .0 Not Available [facility] (Lab) [address] [place], [address], 03/05/2025 19:29:48 03/05/20 25 03/05/2025 CBC/C OMPLE TE BLD COUNT W/DIF F eosinophils 2.2 % 1.0-7. 0 Not Available [facility] (Lab) [address] [place], [address], 03/05/2025 19:29:48 03/05/20 25 03/05/2025 CBC/C OMPLE TE BLD COUNT W/DIF F basophils 0.5 % 0.0-2. 0 Not Available [facility] (Lab) [address] [place], [address], 03/05/2025 19:29:48 04/17/20 25 03/05/2025 CBC/C OMPLE TE BLD COUNT W/DIF F immature granulocytes 0.7 % 0.00-0 .50 high Not Available [facility] (Lab) [address] [place], [address], 03/05/2025 19:29:48 03/05/20 25 03/05/2025 CBC/C OMPLE TE BLD COUNT W/DIF F neutrophils, absolute count 2.09 x10'3 /uL 1.5-8. 0 Not Available [facility] (Lab) [address] [place], [address], 03/05/2025 19:29:48 03/05/20 25 03/05/2025 CBC/C OMPLE TE BLD COUNT W/DIF F lymphocytes, absolute count 1.52 x10'3 /uL 1.07-3 .43 Not Available [facility] (Lab) [address] [place], [address], 03/05/2025 19:29:48 03/05/20 25 03/05/2025 CBC/C OMPLE TE BLD COUNT W/DIF F monocytes, absolute count 0.33 x10'3 /uL 0.29-0 .99 Not Available [facility] (Lab) [address] [place], [address], 03/05/2025 19:29:48 03/05/20 25 03/05/2025 CBC/C OMPLE TE BLD COUNT W/DIF F eosinophils, absolute count 0.09 x10'3 /uL 0.02-0 .53 Not Available [facility] (Lab) [address] [place], [address], 03/05/2025 19:29:48 03/05/20 25 03/05/2025 CBC/C OMPLE TE BLD COUNT W/DIF F basophils, absolute count 0.02 x10'3 /uL 0.01-0 .08 Not Available [facility] (Lab) [address] [place], [address], 03/05/2025 19:29:48 03/05/20 25 03/05/2025 CBC/C OMPLE TE BLD COUNT W/DIF F immature granulocytes ,absolute 0.03 x10'3 /uL 0.00-0 .05 Not Available [facility] (Lab) [address] [place], [address], 03/05/2025 19:29:48 03/05/20 25 03/05/2025 CBC/C OMPLE TE BLD COUNT W/DIF F nucleated red blood cells 0.0 % -0 Not Available [facility] (Lab) [address] [place], [address], 03/05/2025 19:29:48 03/05/20 25 03/05/2025 CBC/C OMPLE TE BLD COUNT W/DIF F NRBC# 0.00 x10'3 /uL Not Available [facility] (Lab) [address] [place], [address], 03/05/2025 19:29:48 03/05/20 25 03/05/2025 COMPR EHENS MELVIN METAB OLIC PANEL sodium 137 mmol/ L 137-14 5 Not Available [facility] (Lab) [address] [place], [address], 03/05/2025 19:54:43 03/05/20 25 03/05/2025 COMPR EHENS MELVIN METAB OLIC PANEL potassium 4.2 mmol/ L 3.5-5. 1 Not Available [facility] (Lab) [address] [place], [address], 03/05/2025 19:54:43 03/05/20 25 03/05/2025 COMPR EHENS MELVIN METAB OLIC PANEL chloride 102 mmol/ L 98-107 Not Available [facility] (Lab) [address] [place], [address], 03/05/2025 19:54:43 03/05/20 25 03/05/2025 COMPR EHENS MELVIN METAB OLIC PANEL carbon dioxide 28 mmol/ L 22-30 Not Available [facility] (Lab) [address] [place], [address], 03/05/2025 19:54:43 03/05/20 25 03/05/2025 COMPR EHENS MELVIN METAB OLIC PANEL anion gap 11.2 mmol/ L 14-22 low Not Available [facility] (Lab) [address] [place], [address], 03/05/2025 19:54:43 03/05/20 25 03/05/2025 COMPR EHENS MELVIN METAB OLIC PANEL glucose 95 mg/dL 70-99 Not Available [facility] (Lab) [address] [place], [address], 03/05/2025 19:54:43 03/05/20 25 03/05/2025 COMPR EHENS MELVIN METAB OLIC PANEL BUN 10 mg/dL 8-19 Not Available [facility] (Lab) [address] [place], [address], 03/05/2025 19:54:43 03/05/20 25 03/05/2025 COMPR EHENS MELVIN METAB OLIC PANEL creatinine 0.85 mg/dL 0.66-1 .25 Not Available [facility] (Lab) [address] [place], [address], 03/05/2025 19:54:43 03/05/20 25 03/05/2025 COMPR EHENS MELVIN METAB OLIC PANEL GFR >60 Refer ence Range : [place] ge GFR Healt hy Adult : >60 [...] calcu lator is avail able on the [facility] websi te: [email or web address] :[email or web address] [email or web address] r_[email or web address] culat or Not Available [facility] (Lab) [address] [place], [address], 03/05/2025 19:54:43 03/05/20 25 03/05/2025 COMPR EHENS MELVIN METAB OLIC PANEL alkaline phosphatase 59 U/L 38-126 Not Available [facility] (Lab) [address] [place], [address], 03/05/2025 19:54:43 03/05/20 25 03/05/2025 COMPR EHENS MELVIN METAB OLIC PANEL alanine aminotransfe rase 60 U/L 0-50 high Not Available [facility] (Lab) [address] [place], [address], 03/05/2025 19:54:43 03/05/20 25 03/05/2025 COMPR EHENS MELVIN METAB OLIC PANEL aspartate aminotransfe rase 51 U/L 15-46 high Not Available [facility] (Lab) [address] [place], [address], 03/05/2025 19:54:43 03/05/20 25 03/05/2025 COMPR EHENS MELVIN METAB OLIC PANEL bilirubin, total 1.10 mg/dL 0.20-1 .30 Not Available [facility] (Lab) [address] [place], [address], 03/05/2025 19:54:43 03/05/20 25 03/05/2025 COMPR EHENS MELVIN METAB OLIC PANEL calcium 10.0 mg/dL 8.4-10 .2 Not Available [facility] (Lab) [address] [place], [address], 03/05/2025 19:54:43 03/05/20 25 03/05/2025 COMPR EHENS MELVIN METAB OLIC PANEL total protein 7.0 g/dL 6.3-8. 2 Not Available [facility] (Lab) [address] [place], [address], 03/05/2025 19:54:43 03/05/20 25 03/05/2025 COMPR EHENS MELVIN METAB OLIC PANEL albumin 4.8 g/dL 3.4-5. 0 Not Available [facility] (Lab) [address] [place], [address], 03/05/2025 19:54:43 03/05/20 25 03/05/2025 COMPR EHENS MELVIN METAB OLIC PANEL globulin 2.2 g/dL 2.6-4. 2 low Not Available [facility] (Lab) [address] [place], [address], 03/05/2025 19:54:43 03/05/20 25 03/05/2025 COMPR EHENS MELVIN METAB OLIC PANEL A/G ratio 2.2 ratio 1.0-2. 0 high Not Available [facility] (Lab) [address] [place], [address], 03/05/2025 19:54:43 03/05/20 25 03/05/2025 LIPID PANEL cholesterol 232 mg/dL 140-19 9 high NIH BANDAR NSUS RECOM MENDA TION FOR GIGI STERO L: ADULT CHILD LOW RISK: <200 <170 BORDE RLINE : <200- 239 ----- HIGH RISK: >240 >200 Not Available [facility] (Lab) [address] [place], [address], 03/05/2025 19:54:47 03/05/20 25 03/05/2025 LIPID PANEL triglyceride s 90 mg/dL 0-150 NIH BANDAR NSUS REPOR T RECOM MENDA TION FOR TRIGL YCERI AARON: ADULT CHILD LOW RISK: <150 ----- BODER LINE: 150-1 99 ----- HIGH RISK: >200 ----- Not Available [facility] (Lab) [address] [place], [address], 03/05/2025 19:54:47 03/05/20 25 03/05/2025 LIPID PANEL HDL cholesterol 72 mg/dL 40- Not Available [facility] (Lab) [address] [place], [address], 03/05/2025 19:54:47 03/05/20 25 03/05/2025 LIPID PANEL [...] WILL NOT BE REPOR XANDER. Not Available [facility] (Lab) [address] [place], [address], 03/05/2025 19:54:47 03/05/20 25 03/05/2025 URINA LYSIS COMPL ETE/I RIS W/RFX color COLORL ESS Not Available [facility] (Lab) [address] [place], [address], 03/05/2025 19:55:50 03/05/20 25 03/05/2025 URINA LYSIS COMPL ETE/I RIS W/RFX appear CLEAR Not Available [facility] (Lab) [address] [place], [address], 03/05/2025 19:55:50 03/05/20 25 03/05/2025 URINA LYSIS COMPL ETE/I RIS W/RFX specific gravity 1.004 1.001- 1.030 Not Available [facility] (Lab) [address] [place], [address], 03/05/2025 19:55:50 03/05/20 25 03/05/2025 URINA LYSIS COMPL ETE/I RIS W/RFX pH 7.0 pH_un its 5.0-9. 0 Not Available [facility] (Lab) [address] [place], [address], 03/05/2025 19:55:50 03/05/20 25 03/05/2025 URINA LYSIS COMPL ETE/I RIS W/RFX leukocytes NEGATI VE marj/u L negati ve- Not Available [facility] (Lab) [address] [place], [address], 03/05/2025 19:55:50 03/05/20 25 03/05/2025 URINA LYSIS COMPL ETE/I RIS W/RFX nitrite NEGATI VE negati ve- Not Available [facility] (Lab) [address] [place], [address], 03/05/2025 19:55:50 03/05/20 25 03/05/2025 URINA LYSIS COMPL ETE/I RIS W/RFX protein NEGATI VE mg/dL negati ve- Not Available [facility] (Lab) [address] [place], [address], 03/05/2025 19:55:50 03/05/20 25 03/05/2025 URINA LYSIS COMPL ETE/I RIS W/RFX glucose NORMAL mg/dL normal - Not Available [facility] (Lab) [address] [place], [address], 03/05/2025 19:55:50 03/05/20 25 03/05/2025 URINA LYSIS COMPL ETE/I RIS W/RFX ketones NEGATI VE mg/dL negati ve- Not Available [facility] (Lab) [address] [place], [address], 03/05/2025 19:55:50 03/05/20 25 03/05/2025 URINA LYSIS COMPL ETE/I RIS W/RFX urobilinogen NORMAL mg/dL normal - Not Available [facility] (Lab) [address] [place], [address], 03/05/2025 19:55:50 03/05/20 25 03/05/2025 URINA LYSIS COMPL ETE/I RIS W/RFX bilirubin NEGATI VE mg/dL negati ve- Not Available [facility] (Lab) [address] [place], [address], 03/05/2025 19:55:50 03/05/20 25 03/05/2025 URINA LYSIS COMPL ETE/I RIS W/RFX blood NEGATI VE mg/dL negati ve- Not Available [facility] (Lab) [address] [place], [address], 03/05/2025 19:55:50 03/05/20 25 03/05/2025 URINA LYSIS COMPL ETE/I RIS W/RFX white blood cells NONE /i??h pfi?? 0-8 Not Available [facility] (Lab) [address] [place], [address], 03/05/2025 19:55:50 04/17/20 25 03/05/2025 URINA LYSIS COMPL ETE/I RIS W/RFX red blood cells 0-4 /i??h pfi?? 0-4 Not Available [facility] (Lab) [address] [place], [address], 03/05/2025 19:55:50 03/05/20 25 03/05/2025 URINA LYSIS COMPL ETE/I RIS W/RFX bacteria NONE Not Available [facility] (Lab) [address] [place], [address], 03/05/2025 19:55:50 03/05/20 25 03/05/2025 URINA LYSIS COMPL ETE/I RIS W/RFX squamous epithelial NONE /i??l pfi?? Not Available [facility] (Lab) [address] [place], [address], 03/05/2025 19:55:50 03/05/20 25 03/05/2025 HEMOG LOBIN A1C HA1C 5.1 % 4.0-6. 0 Diabe kranthi Scree sincere Crite glenn: <5.7% Consi stent with absen ce of diabe kranthi 5.7-6 .4% Consi stent with incre ased risk for diabe kranthi (pred iabet es) >OR=6 .5% Consi stent with diabe kranthi REFER ENCE: Diabe kranthi Care 2016, 39(Cardona ppl.1 ):s13 -s22 Not Available [facility] (Lab) [address] [place], [address], 03/05/2025 20:19:20 03/05/20 25 03/05/2025 VITAM IN D 25-HY DROXY vd25oh 16.4 NG/mL 30-100 low Vitam in D Statu s: Defic ient: <20 ng/mL Insuf ficie nt: 20-29 ng/mL Suffi cient : 30-10 0 ng/mL Not Available [facility] (Lab) [address] [place], [address], 03/05/2025 20:29:21 03/05/20 25 03/05/2025 TSH W/REF TERESA FT4 TSH with reflex free T4 0.923 uIU/m L 0.465- 4.680 Not Available [facility] (Lab) [address] [place], [address], 03/05/2025 20:29:31 03/05/20 25 03/05/2025 PSA, TOTAL PSA, total 1.04 NG/mL 0.00-4 .00 Not Available [facility] (Lab) [address] [place], [address], 03/05/2025 20:29:33 04/09/20 25 04/09/2025 XR, chest , 2 view No observ ation record ed. [address] [address], [place], [address], 05/05/2025 10:47:29 04/09/20 25 04/09/2025 US, abdom en, limit ed No observ ation record ed. [address] [address], [place], [address], 05/05/2025 10:47:29 Result Notes None recorded. Problems Name Problem SNOMED Code Status Onset Date Resolution Date Notes Provider Name and Address Organization Details Recorded Time External hemorrhoids 62337154 Active 2023 Yariel Ryan MD [address], [place], [address], [employer] 4 09:24:50 Smoker 96033497 Active 2023 Yariel Ryan MD [address], [place], [address], [employer] 4 09:26:35 Family history of diabetes mellitus 797870864 Active 2023 Yariel Ryan MD [address], [place], [address], [place] [facility] 4 09:40:03 Vitamin D deficiency 83020302 Active 2024 Yariel Ryan MD [address], [place], [address], [place] [facility] 5 12:18:55 Hyperlipide veda 63658761 Active 2024 Yariel Ryan MD [address], [place], [address], [place] [facility] 5 12:19:27 Allergic contact dermatitis 832787857 Active 2024 Yariel Ryan MD [address], [place], [address], [place] [facility] 5 12:24:31 Allergic rhinitis 80988153 Active 2024 Yariel Ryan MD [address], [place], [address], [place] [facility] 5 12:25:32 Impacted cerumen of bilateral ears 1638541643667 108 Active 2024 Yariel Ryan MD [address], [place], [address], [place] [facility] 5 12:27:58 Liver function test above reference range 462798533 Active 2024 Yariel Ryan MD [address], [place], [address], [place] [facility] 5 12:36:34 Right upper quadrant pain 538844670 Active 2024 Yariel Ryan MD [address], [place], [address], [place] [facility] 5 12:56:33 Abdominal bloating 694729129 Active 2024 Yariel Ryan MD [address], [place], [address], [employer] [facility] [employer] 5 12:56:56 Indigestion 279145525 Active 2024 Yariel Ryan MD [address], [place], [address], [employer] [facility] [employer] [facility] 5 12:57:26 Burning chest pain Active 2024 MD [address], [place], [address], [employer] 5 13:03:03 Gastroesoph ageal reflux disease without esophagitis 985035686 Active 2024 Yariel Ryan MD [address], [place], [address], [employer] [facility] [employer] 5 10:39:19 Generalized abdominal pain 237147738 Active 2024 Yariel Ryan MD [address], [place], [address], [employer] 5 10:48:39 Problem Notes None recorded. Procedures Surgical History Date Name Laterality Status Provider Name and Address Organization Details Recorded Time 5 Ear Irrigation completed MD [address], [place], [address], [employer] [facility] [employer] 03/19/2025 12:55:15 5 Smoking Cessation completed MD [address], [place], [address], [employer] [facility] [employer] 03/05/2025 12:06:44 4 Smoking Cessation completed MD [address], [place], [address], [facility] [employer] [facility] [employer] 03/05/2024 09:27:07 Imaging Results None recorded. Procedure [...] Not Available Not Available Not Avai lable pantoprazol e 40 mg tablet,lilia yed release Take 1 tablet twice a day by oral route as directed for 30 days. 2024 active Not Available Not Available Not Avai lable midodrine 2.5 mg tablet 03/05 completed Not Available Not Available Not Available ergocalcife rol (vitamin D2) 1,250 mcg (50,000 unit) capsule Take 1 capsule every week by oral route as directed for 90 days. 2024 active Not Available Not Available Not Avai lable fluticasone propionate 50 mcg/actuati on nasal spray,suspe nsion Lindsay 2 sprays every day by intranasa l [...] blood by Pulse oximetry Heart rate Systolic And Diastolic Provider Name and Address Organization Details Last Updated DateTime 5 175.26 cm 26.6 kg/m2 37323.6 3 g 97.3 [degF] 96 % 96 % 81 /min 110/70 mm[Hg] Lauryn Farr RN [facility] [employer] [facility] 5 12:15:00 Date Recorded Body height Body mass index (BMI) Body weight Body temperature Heart rate Respiratory rate Systolic And Diastolic Provider Name and Address Organization Details Last Updated DateTime 4 175.26 cm 24.7 kg/m2 11811.9 3 g 98.5 [degF] 86 /min 18 /min 110/70 mm[Hg] Apple Kong MA [facility] [employer] [facility] 4 10:35:43 Date Recorded Body height Body mass index (BMI) Body weight Body temperature Oxygen saturation Oxygen saturation in Arterial blood by Pulse oximetry Heart rate Systolic And Diastolic Provider Name and Address Organization Details Last Updated DateTime 5 175.26 cm 26.2 kg/m2 45310.9 5 g 97.3 [degF] 96 % 96 % 73 /min 120/80 mm[Hg] Lauryn Farr RN [facility] [employer] [facility] 5 12:43:43 Date Recorded Body height Body mass index (BMI) Body weight Body temperature Oxygen saturation Oxygen saturation in Arterial blood by Pulse oximetry Heart rate Systolic And Diastolic Provider Name and Address Organization Details Last Updated DateTime 5 175.26 cm 25.9 kg/m2 12084.7 1 g 97.2 [degF] 95 % 95 % 95 /min 120/84 mm[Hg] Lauryn Farr RN [facility] [employer] [facility] 5 12:49:24 Date Recorded Body height Body mass index (BMI) Body weight Body temperature Oxygen saturation Oxygen saturation in Arterial blood by Pulse oximetry Heart rate Systolic And Diastolic Provider Name and Address Organization Details Last Updated DateTime 5 175.26 cm 26.2 kg/m2 89356.3 g 97.4 [degF] 98 % 98 % 81 /min 120/70 mm[Hg] Lauryn Farr RN [facility] [employer] [facility] 5 10:45:51 Social History Question Answer Notes LastModified by Organization Details LastModified Time Tobacco Smoking Status Current Every Day Smoker Yariel Ryan MD [address] [facility], [address] [address], [place], [address], [facility] [employer] [facility] 03/05/2025 12:22:36 What Is Your Level Of Caffeine Consumption? Occasional Two Cups Coffee In The Morning [email or web address] Information not available 03/05/2025 In The 14 [...] Or The Highest Degree You Have Received? [id number] Information not available 03/05/2024 Have There Been Any Changes To Your Family Or Social Situation? No Information not available 03/05/2024 What Is The Fluoride Status Of Your Home? Unknown Information not available 03/05/2024 Are There Any Guns Present In Your Home? No Information not available 03/05/2024 Where Do You Live? SingleLevelHouse Information not available 03/05/2024 What Is Your Current Pack Years? 10-19packyears [email or web address] Information not available 03/05/2025 Have You Ever [...] Age Did You Start Smoking Tobacco? 21 [email or web address] Information not available 03/05/2025 Are You Passively Exposed To Smoke? No Information not available 03/05/2024 Are There Any Smokers In Your House? No Information not available 03/05/2024 How Much Tobacco Do You Smoke? 1 PPD [email or web address] Information not available 03/05/2025 Do You Participate In Social Media? Yes Information not available 03/05/2024 Do You Use Sunscreen Routinely? Yes Information not available 03/05/2024 How Many Years Have You Smoked Tobacco? 20 [email or web address] Information not available 03/05/2025 Have You Recently Traveled Abroad? No Information not available 03/05/2024 Are You Currently In School? No Information not available 03/05/2024 Do You Have Any Dietary Restrictions? No Information not available 03/05/2024 How Many Years Have You Used E-cigarettes Or Vape? 6 [email or web address] Information not available 03/05/2025 Sex: Male Functional Status Question Answer Note LastModified by Organizat ion Details LastModified Time Do you or have you ever used any other forms of tobacco or nicotine? Yes [email or web address] Information not available 03/05/2025 What is your level of alcohol consumption? Occasional Information not available 03/05/2024 Do you or have you ever used smokeless tobacco? Never used smokeless tobacco Information not available 03/05/2025 Are you currently employed? Yes Information not available 03/05/2024 Do you or have you ever used e-cigarettes or vape? Current user of electronic cigarettes [email or web address] Information not available 03/05/2025 Mental Status Question Answer Note LastModified by Organization D etails LastModified Time Do you feel stressed (tense, restless, nervous, or anxious, or unable to sleep at night)? [id number] Information not available 03/05/2024 Family History Relationship [...] SNOMED-CT Code Diagnosis ICD10 Code Diagnosis Note [id number] Yariel Ryan MD [facility] [address] [place] [address] 03/05/2024 09:09:14 03/05/2024 09:43:57 Adult health examination 759896820 Z00.00 Screening for disorder 102609596 Z13.9 Family his tory of diabetes mellitus 330446450 Z83.3 Mom External hemorrhoids 239 [address] K64.4 Smoker 18759503 F17.200 Cig + Vaping [id number] Favio singer MD [facility] General Surgery 4 [facility], [address] [address] 03/13/2024 10:18:04 06/05/2024 10:52:32 External hemorrhoids 63191734 K64.4 [id number] Yariel Ryan MD [address] [address] 03/13/2024 09:13:03 03/13/2024 11:52:02 [id number] Yariel Ryan MD [address] [address] 03/05/2025 12:01:27 03/05/2025 12:43:46 Adult health examination 709605385 Z00.00 Family his tory of diabetes mellitus 887401390 Z83.3 Mom External hemorrhoids 239 [address] K64.4 Smoker 69739332 F17.200 Cig + Vaping Vitamin D deficiency 347 35075 E55.9 Hyperlipidemia 49315894 E78.5 Allergic c ontact dermatitis 147682143 L23.9 Allergic rhinitis 517343 04 J30.9 Impacted c erumen of bilateral ears 9506908392 093582 H61.23 [id number] Yariel Ryan MD [address] [address] 03/19/2025 12:18:11 03/19/2025 12:59:19 Family history of diabetes mellitus 753260841 Z83.3 Mom External hemorrhoids 239 [address] K64.4 Smoker 35458016 F17.200 Cig + Vaping Vitamin D deficiency 347 72177 E55.9 Hyperlipidemia 84606126 E78.5 Allergic c ontact dermatitis 743074409 L23.9 Allergic rhinitis 990170 04 J30.9 Impacted c erumen of bilateral ears 6192344039 573735 H61.23 Liver func tion test above reference range 188238344 R79.89 [id number] Yariel Ryan MD [address] [address] 04/09/2025 12:35:50 04/09/2025 12:59:01 Right upper quadrant pain 793920280 R10.11 Abdominal bloating 62414 9008 R14.0 Indigestion 054533470 K3 0 Burning chest pain 36951 01935 R07.89 [id number] Yariel Ryan MD [address] [address] 05/05/2025 10:36:23 05/05/2025 11:27:55 Seen in department 870985991 Z76.89 Recent ED records reviewed. Gastroesop hageal reflux disease without esophagitis 457958375 K21.9 Generalize d abdominal pain 994417644 R10.84 Health Concerns Section Related Observation LastModified by Organization Detai ls LastModified Time None Recorded Concern Status LastModified by Organization Details LastModified Time None Recorded Advance Directives Directive None Recorded Payers Insurance Date Sequence Insurance Name Policy Number Policy Font[place] Covered Member ID Font[place] Member ID Guarantor Name 05/02/2025 1 [facility] () Medhat Khan [id number] Medhat Khan 03/04/2025 1 [facility] () Medhat Khan [id number] Medhat Khan Notes Date Note Type Note Provider Name and Address Organization Details Recorded Time 03/13/2024 text/html Patient complain s of hemorrhoids which caused some significant itching. Has had 1 for 15 years but now has developed another 1 These do become larger times. denies bleeding, denies constipation or diarrhea Favio Vance MD [address] [facility] [address], [place], [address], [facility] [employer] [facility] [employer] 03/13/2024 13:18:32 03/05/2025 text/html Annual exam + [...] conservative treatement. Yariel Ryan MD [address], [facility] [address], [place], [address], [employer] [facility] [employer] 03/05/2025 12:42:22 03/19/2025 text/html Pt is here [...] conservative treatement. Yariel Ryan MD [address], [facility] [address], [place], [address], [facility] [employer] 03/19/2025 12:58:00 04/09/2025 text/html ACV: C/o RUQ area pain, nausea, burping, bloating for last 4 days. Denies any fever/chills/c/d/b lood in stool. Pt denies any known sick contact/unusual outside food intake. Pt has an order for US abdo, but they can not do it until next week Sun. Pt will be driving to [place] on this weekend. Yariel Ryan MD [address], [facility] [address], [place], [address], [employer] 04/09/2025 13:03:43 05/05/2025 text/html ED fuv: Pt was seen in ED on 04/09/25 due to his RUQ pain and got labs, x-ray and US done and it all came back good. So pt was d/c to home on Pantoprazole. Pt is feeling better than last visit. His pain is still not completely gone. Denies any n/v/c/d/blood in stool/fever/chills . No other concern. Yariel Ryan MD [address], [place], [address], [employer] 05/05/2025 11:05:44
[2025-06-01 14:12] LABS: Hematocrit 44.9 % (42.0-52.0); Hemoglobin 15.6 g/dL (14.0-18.0); Immature Granulocyte Percent A 0.5 % (0-0.5); Lymphocytes Absolute Auto 1.38 K/mm3 (0.9-3.2); Mean Corpuscular HGB Conc 34.7 g/dl (32-36); Mean Corpuscular Hemoglobin 31.5 pg (26-34); Mean Corpuscular Volume 90.5 fl (80-100); Nucleated Red Blood Cells Absolute Auto 0.000 K/mm3 (0.0-0.012); Nucleated Red Blood Cells Perc 0.0 % (0.0-0.2); Platelet Count Result 211 k/mm3 (150-375); Red Blood Count 4.96 M/mm3 (4.6-6.20); White Blood Count 8.4 K/mm3 (4.5-10.0)
[2025-06-01 14:23] LABS: INR 1.0; Prothrombin Time 13.0 Seconds (11.1-14.7)
[2025-06-01 14:24] LABS: Partial Thromboplastin Time 27.5 Seconds (22.3-36.8)
[2025-06-01 14:39] LABS: Alanine Aminotransferase 41 U/L (6-50); Albumin Level 4.7 g/dL (3.5-5.1); Alkaline Phosphatase 57 U/L (38-126); Anion Gap 10 mmol/L (4-12); Aspartate Amino Transferase 39 U/L (17-59); Bilirubin,Total 1.2 mg/dL (0.2-1.3); Blood Urea Nitrogen 11 mg/dL (9-20); Calcium 9.3 mg/dL (8.4-10.2); Carbon Dioxide 26 mmol/L (22-30); Chloride 101 mmol/L (98-107); Estimated CRCL calculation 80 ml/min; Estimated Glomerular Filt Rate > 60; Glucose 189 mg/dL (65-110); Lipase 92 U/L (23-300); Potassium 3.9 mmol/L (3.4-5.0); Sodium 137 mmol/L (137-145); Total Protein 7.4 g/dL (6.3-8.2)
[2025-06-01 14:51] LABS: Troponin I < 0.012 ng/mL (0.000-0.034)
[2025-06-01] MEDS: BELLADONNA ALK/PHENOB ELIX 10 ML, MAG HYDROX/ALUMINUM HYD/SIMETH 30 ML, LIDOCAINE 2% VI... PO (16:58)
--- OUTSIDE RECORDS SUMMARY | 2025-06-01 17:00 | XMS_ITS | Continuity of Care Document ---
Author Name [facility] Organization [facility] Care Team Providers Care Crime Scene Investigator Name Role Phone [facility] Unavailable Unavailable Problems [...] DoD REFRACTIVE ERROR - HYPERMETROPIA Active Condition [facility] ASTIGMATISM - REGULAR Active Condition DoD COMMON COLD Inactive Condition DoD physical trauma sports-related Inactive Condition DoD SPRAIN RIBS Inactive Condition DoD work-related environmental exposure Inactive Condition DoD visit for: services flight physical Active Condition DoD visit for: services physical pre-deployment Active Condition [facility] visit for: screening exam malaria Active Condition DoD SINUSITIS Active Condition [facility] visit for: administrative purpose Inactive Condition [facility] visit for: screening exam venereal disease Active Condition DoD Vesicle (___mm) Active Condition DoD EPIDERMAL INCLUSION CYST Inactive Condition DoD upper back pain (between shoulder blades) Active Condition DoD ALLERGIC RHINITIS Active Condition DoD SHOULDER STRAIN LEFT Inactive Condition [facility] visit for: refer patient [...] medical certificate fitness Inactive Condition 422 COMPLETED [facility] Outpatient Physician Consultation Inactive [...] Cream 2.5% Topical For external use. 03/05/2025 [id number] 4 2023 28.35 [facility] Gus PEREZ ([facility] [place]) hydrocortis one 2.5% cream [30g] See Instruct [...] Site Reaction Lot Number CVX Code Drug Puttier Status Comments Source COVID Vaccine Moderna 2020 [id number] complet ed COVID Vaccine Moderna 03/18/21 Given Ambulat ory Pharmac y SARS-COV-2 (COVID-19) vaccine, mRNA, spike protein, LNP, preservative free, 100 mcg or 50 mcg dose 2 2020 [id number] 207 Moderna [employer] (MOD) complet ed SARS-COV- 2 (COVID-19 ) vaccine, mRNA, spike protein, LNP, preservat candelario free, 100 mcg or 50 mcg dose DoD COVID Vaccine Moderna 2020 [id number] complet ed COVID Vaccine Moderna 02/18/21 Given Ambulat ory Pharmac y SARS-COV-2 (COVID-19) vaccine, mRNA, spike protein, LNP, preservative free, 100 mcg or 50 mcg dose 1 2020 [id number] 207 Moderna [employer] (MOD) complet ed SARS-COV- 2 (COVID-19 [...] preservat candelario free DoD Influenza, injectable, Madin Donna Canine Kidney, quadrivalent with preservative 0 2019 186 (MVX) complet ed Influenza , injectabl e, Madin Donna Canine Kidney, quadrival ent with preservat candelario DoD influenza, injectable, quadrivalent- pf 2018 [id number] 150 Seqirus complet ed influenza , injectabl e, quadrival ent-pf 09/25/19 Given Ambulat ory Pharmac y Influenza, injectable, quadrivalent, preservative free 1 2018 [id number] 150 Seqirus (SEQ) complet ed Influenza , injectabl e, quadrival ent, preservat candelario free DoD influenza, injectable, quadrivalent- pf 2017 [id number] [address] [facility] complet ed influenza , injectabl e, quadrival ent-pf 10/28/18 Given Ambulat ory Pharmac y Influenza, injectable, quadrivalent, preservative free 1 2017 [id number] 150 [facility] (SKB) complet ed Influenza , injectabl e, quadrival ent, preservat candelario free DoD influenza, injectable, quadrivalent 2016 [id number] 158 GlaxoSmithKli ne complet ed influenza , injectabl e, quadrival ent 09/13/17 Given Ambulat ory Pharmac y influenza, injectable, quadrivalent, contains preservative 0 2016 [id number] 158 [facility] (SKB) complet ed influenza , injectabl e, quadrival ent, contains preservat candelario DoD influenza, seasonal, injectable-pf 2015 [id number] 140 Seqirus complet ed influenza , seasonal, injectabl e-pf 09/04/16 Given Ambulat ory Pharmac y Influenza, seasonal, injectable, preservative free 16 2015 [id number] 140 Seqirus (SEQ) comple t ed Influenza , seasonal, injectabl e, preservat candelario free DoD influenza, seasonal, injectable-pf 2015 [id number] 140 CSL Behring complet ed influenza , seasonal, injectabl e-pf 11/23/15 Given Ambulat ory Pharmac y Influenza, seasonal, injectable, preservative free 15 2015 [id number] 140 [employer] (CSL) complet ed Influenza , seasonal, injectabl e, preservat candelario free DoD influenza, seasonal, injectable 2013 [id number] 141 ID Biomedical comple t ed influenza , seasonal, injectabl e 10/26/14 Given Ambulat ory Pharmac y Influenza, seasonal, injectable 14 2013 [id number] 141 (IDB) complet ed Influenza , seasonal, injectabl e DoD influenza, seasonal, injectable 2012 [id number] 141 CSL Behring complet ed influenza , seasonal, injectabl e 08/12/13 Given Ambulat ory Pharmac y Influenza, seasonal, injectable 13 2012 [id number] 141 [employer] (CSL) complet ed Influenza , seasonal, injectabl e DoD influenza, seasonal, injectable-pf 2011 [id number] 140 CSL Behring complet ed influenza , seasonal, injectabl e-pf 10/4/12 Given Ambulat ory Pharmac y Influenza, seasonal, injectable, preservative free 12 2011 [id number] 140 CS [employer] (CSL) complet ed Influenza , seasonal, injectabl e, preservat candelario free DoD tetanus, diphtheria, acellular pertu is 2011 [id number] 115 GlaxoSmithKli ne complet ed tetanus, diphtheri a, acellular pertussis 06/19/12 Given Ambulat ory Pharmac y tetanus toxoid, reduced diphtheria toxoid, and acellular pertu is vaccine, adsorbed 0 2011 [id number] 115 Chloe + Isabel (SKB) complet ed tetanus toxoid, reduced diphtheri a toxoid, and acellular pertussis vaccine, adsorbed DoD influenza, seasonal, injectable-pf 2010 [id number] 140 sanofi pasteur complet ed influenza , seasonal, injectabl e-pf 09/06/11 Given Ambulat ory Pharmac y Influenza, seasonal, injectable, preservative free 11 2010 [id number] 140 Sanofi Pasteur (PMC) complet ed Influenza , seasonal, injectabl e, preservat candelario free DoD hepatitis B adult vaccine 2010 [id number] 43 GlaxoSmithKli ne complet ed hepatitis B adult vaccine 01/26/11 Given Ambulat ory Pharmac y anthrax vaccine 2010 [id number] Emergent [employer] complet ed anthrax vaccine 01/26/11 Given Ambulat ory Pharmac y anthrax vaccine 3 2010 [id number] 24 [employer] [place] ([facility]) complet ed anthrax vaccine DoD hepatitis B vaccine, adult dosage 3 2010 [id number] 43 [employer] Generation Systemsine (SKB) complet ed hepatitis B vaccine, adult dosage DoD hepatitis B adult vaccine 2009 [id number] [id number] 43 GlaxoSmithKli ne complet ed hepatitis B adult vaccine 08/16/10 Given Ambulat ory Pharmac y anthrax vaccine 2009 [id number] 24 [employer] complet ed anthrax vaccine 08/16/10 Given Ambulat ory Pharmac y influenza virus vaccine,split 2009 [id number] 15 CSL Behring complet ed influenza virus vaccine,s plit 08/16/10 Given Ambulat ory Pharmac y influenza virus vaccine, split virus (incl. purified surface antigen)-reti red CODE 1 2009 [id number] 15 [employer] (CS) complet ed influenza virus vaccine, split virus (incl. purified surface antigen)- retired CODE DoD anthrax vaccine 2 2009 [id number] 24 [employer] [place] ([facility]) complet ed anthrax vaccine DoD hepatitis B vaccine, adult dosage 2 2009 [id number] 43 SmithKline (SKB) complet ed hepatitis B vaccine, adult dosage DoD typhoid Vi capsular polysaccharid e vac 2009 [id number] 101 sanofi pasteur complet ed typhoid Vi capsular polysacch aride vac 07/06/10 Given Ambulat ory Pharmac y hepatitis B adult vaccine 2009 [id number] [id number] 43 GetGlueoSmithKli ne complet ed hepatitis B adult vaccine 07/06/10 Given Ambulat ory Pharmac y anthrax vaccine 2009 [id number] 24 [employer] complet ed anthrax vaccine 07/06/10 Given Ambulat ory Pharmac y anthrax vaccine 1 2009 [id number] 24 [employer] [place] ([facility]) complet ed anthrax vaccine DoD hepatitis B vaccine, adult dosage 1 2009 [id number] [id number] 43 [employer]Kline (SKB) complet ed hepatitis B vaccine, adult dosage DoD typhoid Vi capsular polysaccharid e vaccine 1 2009 I0773-0 101 Sanofi Pasteur (PMC) complet ed typhoid Vi capsular polysacch aride vaccine DoD Novel influenza-H1N 1-09,pf,injec table 2009 [id number] 1 126 Novartis Pharmaceutica ls complet ed Novel influenza -H3W0-55, pf,inject able 12/27/09 Given Ambulat ory Pharmac y Novel influenza-H1N 1-09, preservative- free, injectable 1 2009 [id number] 1 126 Novartis Pharmaceutica l Jeffry. (NOV) complet ed Novel influenza -Z2G1-85, preservat candelario-free, injectabl e DoD influenza virus vaccine,split 2008 [id number] 15 sanofi pasteur complet ed influenza virus vaccine,s plit 10/20/09 Given Ambulat ory Pharmac y influenza virus vaccine, split virus (incl. purified surface antigen)-reti red CODE 1 2008 [id number] 15 Sanofi Pasteur ([facility]) complet ed influenza virus vaccine, split virus (incl. purified surface antigen)- retired CODE DoD influenza virus vaccine, live 2007 [id number] 111 Pibidi Ltd Inc comple t ed influenza virus vaccine, live 08/24/08 Given Ambulat ory Pharmac y influenza virus vaccine, live, attenuated, for intranasal use 1 2007 [id number] 111 [employer] Inc. (MED) complet ed influenza virus vaccine, live, attenuate d, for intranasa l use DoD influenza virus vaccine, live 2006 [id number] 111 Pibidi Ltd Inc comple t ed influenza virus vaccine, live 10/02/07 Given Ambulat ory Pharmac y influenza virus vaccine, live, attenuated, for intranasal use 1 2006 [id number] 111 [employer], [employer]. (MED) complet ed influenza virus vaccine, live, attenuate d, for intranasa l use DoD influenza virus vaccine,split 2005 [id number] 15 sanofi pasteur complet ed influenza virus vaccine,s plit 11/01/06 Given Ambulat ory Pharmac y influenza virus vaccine, split virus (incl. purified surface antigen)-reti red CODE 1 2005 [id number] 15 Sanofi Pasteur ([facility]) complet ed influenza virus vaccine, split virus (incl. purified surface antigen)- retired CODE [facility] influenza virus vaccine, whole virus 1 2005 Unknown, Provider [id number] 16 Sanofi Pasteur ([facility]) complet ed influenza virus vaccine, whole virus [facility] influenza virus vaccine, whole virus 2004 [id number] 16 sanofi pasteur complet ed influenza virus vaccine, whole virus 10/10/05 Given Ambulat ory Pharmac y influenza virus vaccine,split 2004 [id number] 15 sanofi pasteur complet ed influenza virus vaccine,s plit 10/10/05 Given Ambulat ory Pharmac y influenza virus vaccine, split virus (incl. purified surface antigen)-reti red CODE 1 2004 [id number] 15 Sanofi Pasteur ([facility]) complet ed influenza virus vaccine, split virus (incl. purified surface antigen)- retired CODE [facility] influenza virus vaccine, whole virus 1 2004 [id number] 16 Sanofi Pasteur (PMC) complet ed influenza virus vaccine, whole virus DoD influenza virus vaccine, whole virus 2004 [id number] 16 sanofi pasteur complet ed influenza virus vaccine, whole virus 12/20/04 Given Ambulat ory Pharmac y influenza virus vaccine, whole virus 0 2004 [id number] 16 Sanofi Pasteur ([facility]) complet ed influenza virus vaccine, whole virus DoD influenza virus vaccine, whole virus 2002 [id number] 16 Novartis Pharmaceutica ls complet ed influenza virus vaccine, whole virus 10/05/03 Given Ambulat ory Pharmac y influenza virus vaccine, whole virus 0 2002 [id number] 16 [employer] ls (PWJ) complet ed influenza virus vaccine, whole virus DoD tuberculin purified protein derivative 2002 [id number] 96 sanofi pasteur complet ed tuberculi n purified protein derivativ e 11/25/02 Given Ambulat ory Pharmac y tuberculin skin test; purified protein derivative solution, intradermal 1 2002 Unknown, Provider [id number] 96 Sanofi Pasteur ([facility]) complet ed tuberculi n skin test; purified protein derivativ e solution, intraderm al DoD influenza virus vaccine, whole virus 2001 [id number] 16 [employer] complet ed influenza virus vaccine, whole virus 09/16/02 Given Ambulat ory Pharmac y influenza virus vaccine, whole virus 0 2001 [id number] 16 [facility] ([facility]) complet ed influenza virus vaccine, whole virus DoD typhoid Vi capsular polysaccharid e vac 2001 [id number] 101 sanofi pasteur complet ed typhoid Vi capsular polysacch aride vac 05/12/02 Given Ambulat ory Pharmac y yellow fever vaccine 2001 [id number] 37 sanofi pasteur complet ed yellow fever vaccine 05/12/02 Given Ambulat ory Pharmac y yellow fever vaccine 0 2001 [id number] 37 Sanofi Pasteur ([facility]) complet ed yellow fever vaccine DoD typhoid Vi capsular polysaccharid e vaccine 0 2001 [id number] 101 Sanofi Pasteur ([facility]) complet ed typhoid Vi capsular polysacch aride vaccine DoD hepatitis A adult vaccine 2001 [id number] 52 [employer] complet ed hepatitis A adult vaccine 05/02/02 Given Ambulat ory Pharmac y tetanus-dipht h toxoids (Td) adult/adol 2001 [id number] 09 sanofi pasteur complet ed tetanus-d iphth toxoids (Td) adult/ado l 05/02/02 Given Ambulat ory Pharmac y tetanus and diphtheria toxoids, adsorbed, preservative free, for adult use (2 Lf of tetanus toxoid and 2 Lf of diphtheria toxoid) 0 2001 [id number] 09 Sanofi Pasteur (PMC) complet ed tetanus and diphtheri a toxoids, adsorbed, preservat candelario free, for adult use (2 Lf of tetanus toxoid and 2 Lf of diphtheri a toxoid) DoD hepatitis A vaccine, adult dosage 2 2001 [id number] 52 Chloe + Isabel ([facility]) complet ed hepatitis A vaccine, adult [...] Pharmac y tuberculin purified protein derivative 2000 [id number] 96 [employer] complet ed tuberculi n purified protein derivativ e 08/30/01 Given Ambulat ory Pharmac y hepatitis A adult vaccine 2000 [id number] 52 Merck & Company Inc complet ed hepatitis A adult vaccine 08/30/01 Given Ambulat ory Pharmac y meningococcal polysaccharid e (MPSV4) 2000 [id number] 32 [facility] complet ed meningoco ccal polysacch aride (MPSV4) 08/30/01 Given Ambulat ory Pharmac y influenza virus vaccine, whole virus 2000 [id number] 16 [employer] complet ed influenza virus vaccine, whole virus 08/30/01 Given Ambulat ory Pharmac y poliovirus vaccine, inactivated 0 2000 [id number] 10 Sanofi Pasteur (PMC) complet ed polioviru s vaccine, inactivat ed DoD influenza virus vaccine, whole virus 0 2000 [id number] 16 Carmine (WAL) complet ed influenza virus vaccine, whole virus DoD meningococcal polysaccharid e vaccine (MPSV4) 0 2000 [id number] 32 [employer] (CON) complet ed meningoco ccal polysacch aride vaccine (MPSV4) DoD hepatitis A vaccine, adult dosage 1 2000 [id number] 52 Merck (MSD) complet ed hepatitis A vaccine, adult dosage DoD tuberculin skin test; purified protein derivative solution, intradermal 1 2000 Unknown, Provider [id number] Louise (CON) complet ed tuberculi n [...] ADM Date DC Date Status Disposition Source [facility]) OUTPATIENT [id number] rec rev EFREN ALCOCER 08/08 Released w/o Limitations [facility](F lt/Miss ile Medicin e) [facility]) TELE CONSULT [id number] pt has concern s about a wart that was frozen YVROSE SY 08/31 [facility]) [facility]) TELE CONSULT [id number] MED REFILL YVROSE SY 10/25 [facility]) [facility]) OUTPATIENT [id number] 422 PANFILO GONZALES 12/28 Released w/o Limitations [employer] [facility](F lt/Miss ile Medicin e) [facility]) OUTPATIENT [id number] EFREN ALCOCER 01/03 Released w/o Limitations [employer] [facility](F lt/Miss ile Medicin e) [facility]) OUTPATIENT [id number] cold OMAR HARDEN W 01/04 Sick at Home/Quarter s [employer]([facility]) [employer]([facility]) TELE CONSULT [id number] sore throat getting worse GRAY, JULIO C 01/05 [employer] [facility]) [employer]([facility]) OUTPATIENT [id number] hurt finger OMAR HARDEN W 02/17 Released w/o Limitations [employer] [facility] [employer]([facility]) [employer]([facility]) TELE CONSULT [id number] cold symptom s ELLIOT STERLING 11/27 [employer] [facility] [employer]([facility]) [facility] OUTPATIENT [id number] d/ dizzyne ss OMAR HARDEN W 04/02 Sick at Home/Quarter s [facility]) [employer] OUTPATIENT [id number] lft knee pain OMAR HARDEN W 09/06 Released w/o Limitations [employer] [facility]) [employer] OUTPATIENT [id number] lft knee pain OMAR HARDEN W 10/08 Released w/o Limitations [employer]) [facility]) OUTPATIENT [id number] Initial 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) TELE CONSULT [id number] URGENT CARE REFERRA REGNIO BROWN 05/15 [employer]([facility]) [employer]) TELE CONSULT [id number] STD check MEDLEYKARIE Marquez Carson 06/14 [employer] [facility] [employer]([facility]) [employer] [facility]) TELE CONSULT [id number] lab results PAKO WILLS 06/21 [employer] [facility]) [employer] [facility]) OUTPATIENT [id number] congest ion, headach es, nausea CORNELIA GENAO 10/21 Released w/o Limitations [employer] [facility]) [facility]) TELE CONSULT [id number] URI CORNELIA GENAO 10/22 [employer] [facility]) [employer] [facility]) OUTPATIENT [id number] left foot pain CORNELIA GENAO 04/14 Released w/o Limitations [employer] [facility]) [employer] [facility](Ort hopedic Clinic) OUTPATIENT [id number] Orthope dic DME lace-up ankle brace RENATA JUARES 04/14 Released w/o Limitations [employer](O rthoped ic Clinic) [employer] [facility]) OUTPATIENT [id number] sore throat and fever CORNELIA GENAO 06/03 Released w/o Limitations [employer] [facility]) [employer] [facility]) TELE CONSULT [id number] Paperwo CHRISTINE Nicholson 07/09 [employer] [facility]) [employer] [facility]) OUTPATIENT [id number] sore throat and congest ion CROSS-SHOK JAYSON LEEA UNIQUE 10/01 Released w/o Limitations [employer] [facility]) [employer] [facility] [employer]([facility]) OUTPATIENT [id number] congest ion JULIO CESAR JUDGE 10/06 Released w/o Limitations [employer] [facility]) [facility]) OUTPATIENT [id number] pain in left leg, lump like blood under the skin on leg JOSIAS ROTHMAN 07/13 Released w/o Limitations [facility]) [facility]) TELE CONSULT [id number] triage report/ ANDRÉS Gupta 08/23[facility]) [employer]([facility]at [facility]ka [facility]) OUTPATIENT [id number] pains back of left shoulde r -got worse this morning /someth ing popped JOSIAS ROTHMAN T 09/15 Released w/o Limitations [facility](T sissyn [facility]) [facility]) OUTPATIENT [id number] Pt said new issue- upper right back pains for a week and no change JOSIAS ROTHMAN T 03/11 [facility]ased w/o Limitations [facility] OUTPATIENT [id number] CJ Garcia L 03/22 Released w/o Limitations [facility]) [facility] Group([facility] Team) OUTPATIENT [id number] RASH JOSIAS ROTHMAN T 05/05 Released w/o Limitations [facility](Tat anka Team) TELE CONSULT [id number] [facility] ed for results MATTHEW SEGOVIA 05/10 Medical Group(T sissyn [facility] Team) [facility] Group(Tat anka Team) OUTPATIENT [id number] f/u-- Pt said possibl e sinus infecti on and symptom s got worse BENJAMIN HOUGH 06/06 Released w/o Limitations [facility](FO C) OUTPATIENT [id number] Malaria Screeni ng CJ LARA L 06/29 Released w/o Limitations [facility]) Medical Group(FO C) OUTPATIENT [id number] ROSINA Otto 04/10 Released w/o Limitations [facility]) [facility] Group([facility]) OUTPATIENT [id number] PDHROSINA CHRISTENSEN 07/14 Released w/o Limitations [facility]) OUTPATIENT [id number] rib pains JOSIAS ROTHMAN T 08/16 Released w/o Limitations [facility](T [facility]) [facility] Group(Tat anka Team) OUTPATIENT [id number] broke rib 3 weeks ago, still not getting better JOSIAS ROTHMAN T 09/13 Released with Work/Duty Limitations [facility](T [facility] Team) [facility] OUTPATIENT [id number] congest ion, cough, and diarrhe a JOSIAS ROTHMAN T 10/23 Released w/o Limitations [facility](T [facility] Team) Medical Group(Opt ometry Clinic) OUTPATIENT [id number] karli-a nnual eye exam WANDA NICOLE 11/02 Released w/o Limitations [facility](O ptometr y Clinic) [facility] OUTPATIENT [id number] vomitin g, diarrhe a, congest ion, chills, LORNA JOSIAS T 11/28 Sick at Home/Quarter s [facility](T [facility] Team) Medical Group([facility] anka Team) OUTPATIENT [id number] congest ion, runny nose, possibl e allergi es LORNA ANGELICAKE T 02/08 Released w/o Limitations [facility](T [facility] Team) Medical Group(Pre ventive Health Assessmen ts) OUTPATIENT [id number] PHA MEREDITH CHAPIN 03/21 Released w/o Limitations [facility](P reventi ve Health Assessm ents) Medical Group([facility] anka Team) OUTPATIENT [id number] Notes Entered by: HUMBERTO CHATMAN 09 Jul 2012 1300 ------- ------- ------- ------- -- walk in strep JOSIAS ROTHMAN T 07/09 Released w/o Limitations [facility](T [facility] Team) Medical Group([facility] anka Team) TELE CONSULT [id number] Notes Entered by: ADELSO VALENTIN 30 Jul 2012 1303 ------- ------- ------- ------- -- Other JOSIAS ROTHMAN 07/30 [employer]([facility]) [employer]([facility]) TELE CONSULT [id number] Notes Entered by: SHEY ASIF 30 Jul 2012 1407 ------- ------- ------- ------- -- Other NADER HUTCHINSON 07/30 [employer]([facility]) [employer]([facility]) OUTPATIENT [id number] Notes Entered by: HUMBERTO CHATMAN 15 Aug 2012 0916 ------- ------- ------- ------- -- walk in suture removal JOSIAS ROTHMAN 08/15 Released w/o Limitations [employer]([facility]) [employer]([facility] Assessmen ts) OUTPATIENT [id number] [facility] PHOEBE NGUYỄN 08/22 Released w/o Limitations [employer](D eployme Health Assessm ents) [employer](Anand miranda OM Team) TELE CONSULT [id number] Notes Entered by: BECKY CHAPPELL 27 Dec 2012 1213 ------- ------- ------- ------- -- 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 [facility] BECKY BLANK 12/27 [employer](R aiders OM Team) [employer]([facility] B) OUTPATIENT [id number] f/u on allergALONDRA Hendrickson 02/05 Released w/o Limitations [employer]) [employer]([facility] luis Health B) TELE CONSULT [id number] MINERVA JONES 03/11 [employer]( amily Health B) [employer]([facility] Health Assessmen t) OUTPATIENT [id number] ELISSA VILLA 03/13 Released w/o Limitations [employer]( [facility]) [employer]([facility] [employer]) OUTPATIENT [id number] f/u blood work ALONDRA BEAVERS 03/20 Released w/o Limitations [employer]([facility]) [employer]([facility] LUX [employer] ) OUTPATIENT [id number] wart removal ALONDRA BEAVERS 08/11 Released w/o Limitations [employer]([facility]) [employer]([facility] [employer]) OUTPATIENT [id number] congest ion ALONDRA BEAVERS 01/20 Released w/o Limitations [employer]( 8bit B) [employer]([facility]) OUTPATIENT [id number] PHA ALONDRA BEAVERS 03/25 Released w/o Limitations [employer]( 8bit B) [employer]([facility]) TELE CONSULT [id number] Notes Entered by: MARILEE AVILES 05 Oct 2014 0933 ------- ------- ------- ------- -- Zuccare lli triage; hole in left eyelid/ swollen CHLOÉ QURESHI 10/05 Referred for Appointment [employer]( [employer] Experience) [employer]([facility]) OUTPATIENT [id number] Notes Entered by: Marcy CAMARENA JR 05 Oct 2014 1015 ------- ------- ------- ------- -- red eye walk in RANDY ROMAN 10/05 Released w/o Limitations [employer](O ptometr y Clinic) [employer]([facility]metry Clinic) OUTPATIENT [id number] eye pain f/u RANDY ROMAN 10/26 Released w/o Limitations [employer](O ptometr y Clinic) [employer]([facility]) OUTPATIENT [id number] possibl e carpel tunnel in wrists ALONDRA BEAVERS 11/25 Released w/o Limitations [employer]([facility] B) [employer]([facility]) TELE CONSULT [id number] Notes Entered by: KANA POWERS 09 Dec 2014 1225 ------- ------- ------- ------- -- Radiolo TITI Garcia 12/09 Released to Self Care [employer]([facility]) [employer]([facility]) TELE CONSULT [id number] Notes Entered by: NINA ORTIZ ON T 23 Dec 2014 0820 ------- ------- ------- ------- -- TRIAGE Pt is having chest congest ion, product candelario cough, sluggis h. TITI RAHMAN 12/23 Released to Self Care [employer]([facility] B) [employer]([facility]) TELE CONSULT [id number] Notes Entered by: AMERICA GLASGOW 10 Feb 2015 1433 ------- ------- ------- ------- -- CHLOÉ Turcios 02/10 Released to Self Care [employer]([facility] B) [employer]([facility]) TELE CONSULT [id number] Notes Entered by: JOSE MARIA HYMAN 04 Mar 2015 0925 ------- ------- ------- ------- -- Network Results - ALONDRA Casarez 03/04 [employer]([facility] B) [employer]([facility]) TELE CONSULT [id number] Notes Entered by: MARILEE AVILES 05 Apr 2015 1247 ------- ------- ------- ------- -- Triage; joelle marquez in TITI Reveles 04/05 Referred for Appointment [employer](F amily Health B) [employer]([facility] Health B) OUTPATIENT [id number] Notes Entered by: EILEEN DE LOS SANTOS 06 Apr 2015 0756 ------- ------- ------- ------- -- walk-in ear wash (both ears) KANA POWERS 04/06 Released w/o Limitations [employer]( amily Health B) [employer]([facility] Health B) TELE CONSULT [id number] Notes Entered by: REHAN BLAIR 13 Apr 2015 1020 ------- ------- ------- ------- -- Network Results - Orthope dic - 015 KANA FAULKNER 04/13 [employer]( amily Health B) [employer]([facility] Health Assessmen t) OUTPATIENT [id number] Notes Entered by: JABARI WEAVER 23 Jun 2015 1324 ------- ------- ------- ------- -- Adminis trative [facility] JABARI WEAVER 06/23 Released w/o Limitations [employer](P hysical Health Assessm ent) [employer]([facility] Health B) TELE CONSULT [id number] Notes Entered by: EILEEN DE LOS SANTOS 07 Jun 2016 0827 ------- ------- ------- ------- -- Er suzanne malave/TOYIN Caputo 06/07 Referred for Appointment [employer]( amily Health B) [employer]([facility] Health B) TELE CONSULT [id number] Notes Entered by: LISSETTE OLIVAS 07 Jun 2016 1132 ------- ------- ------- ------- -- NETWORK RESULTS ER-05/19 KANA POWERS 06/07 [employer]([facility] Health B) [employer]([facility]) TELE CONSULT [id number] Notes Entered by: KANA POWERS P 07 Jun 2016 1318 ------- ------- ------- ------- -- ER f/u LEON CHAPPELL 06/07 Released to Self Care [employer]([facility]) [employer]([facility]) OUTPATIENT [id number] ER follow up-tess vigil, ford, and joelle ardon spoke with nurse already . KANA POWERS P 06/08 Released w/o Limitations [employer]([facility] Health B) [employer]([facility]) TELE CONSULT [id number] Notes Entered by: KANA POWERS P 09 Jun 2016 1241 ------- ------- ------- ------- -- TOYIN RIOJAS 06/09 Referred for Appointment [employer]([facility]) [employer]([facility]) TELE CONSULT [id number] Notes Entered by: ILSA RAI 02 Nov 2016 1551 ------- ------- ------- ------- -- Med Out-Pro cessing Workshe et ILSA CARIAS 11/02 Other Not Elsewhere Classified [employer]) [employer]([facility]) OUTPATIENT [id number] Notes Entered by: KRISTIN JAMES 07 Feb 2017 1440 ------- ------- ------- ------- -- KRISTIN CHAN 02/07 Released w/o Limitations [employer](F light Medicin e Clinic) [employer](Tyn dall [facility] Team B) OUTPATIENT [id number] RASH ( GROIN AREA) OMAR MENDOZA 05/23 Released w/o Limitations [facility] [employer]([facility] Team B) [employer]([facility] Team B) OUTPATIENT [id number] cold symptom linda OMAR MENDOZA 06/06 Released w/o Limitations [facility] [employer] [facility] Team B) [facility] Team B) OUTPATIENT [id number] head and chest congest OMAR Christine 06/12 Released with Work/Duty Limitations [facility] [employer]([facility] Team B) [facility] [employer] [facility] Team B) TELE CONSULT [id number] Notes Entered by: ANTONIETA PEARSON 22 Nov 2017 1236 ------- ------- ------- ------- -- Triage non prp DEWAYNE KELLY 11/22 [facility] [employer] [facility] Team B) [facility] Team B) OUTPATIENT [id number] vertigo x 3 days OWEN METZGER I 11/23 Released w/o Limitations [facility] [employer] [facility] Team B) [facility] [employer] [facility] Team B) TELE CONSULT [id number] Notes Entered by: ANTONIETA PEARSON 26 Nov 2017 1043 ------- ------- ------- ------- -- Lab Results DEWAYNE KELLY 11/26 [facility] [employer] [facility] Team B) [facility] [employer] [facility](Ref erral Managemen t Clinic) TELE CONSULT [id number] Notes Entered by: KEVIN PEARSON 04 Dec 2017 0949 ------- ------- ------- ------- -- Network Results -Radiol ogy 8 OWEN METZGER I 12/04 [facility] [employer] [facility](R eferral Manage ent Clinic) [facility] [employer] [facility] Team B) OUTPATIENT [id number] dizzine ss/ligh t headedn ess/hea d aches YASSINE, OWEN I 12/06 Released w/o Limitations [employer]([facility] Team B) [employer]([facility]) OUTPATIENT [id number] SIVAN Weinberg 12/10 Released w/o Limitations [employer]([facility] Optomet ry [facility]) [employer]([facility] Team B) OUTPATIENT [id number] Notes Entered by: DEVORA OLVERA 30 Jan 2018 1029 ------- ------- ------- ------- -- PHAMHA DEVORA OLVERA 01/30 Released w/o Limitations [facility] [employer] [facility] Team B) [facility] [employer] [facility] Team B) TELE CONSULT [id number] Notes Entered by: DEVORA OLVERA 30 Jan 2018 1032 ------- ------- ------- ------- -- Allergy meds DEVORA OLVERA 01/30 [employer]([facility] Team B) [facility] Team A) OUTPATIENT [id number] Notes Entered by: JUHI SHULTZ I 20 Feb 2018 0803 ------- ------- ------- ------- -- Walkin sore throat MORIAH BYNUM 02/20 Released w/o Limitations [facility] [employer] [facility] Team A) [facility] Team B) TELE CONSULT [id number] Notes Entered by: JAILENE FONG 22 Apr 2018 0813 ------- ------- ------- ------- -- Triage - toe injury DEWAYNE KELLY 04/22 [employer]([facility] Team B) [facility] [employer] [facility] Team B) OUTPATIENT [id number] hit toe on the side of the tub. ANGIE HURST 04/22 Released w/o Limitations [employer](Mark Anthony jonelle [facility] Team B) [employer]([place] [facility] Team B) OUTPATIENT [id number] chest congest ion ANGIE HURST 07/17 Released w/o Limitations [employer](Mark Anthony jonelle [facility] Team B) [employer]([facility] Team B) OUTPATIENT [id number] Notes Entered by: ANGELA VIDAL 14 Jan 2019 0702 ------- ------- ------- ------- -- *Conges tion, fever of 102, sweats/ /A nytime GORAN MADRID 01/14 Immediate Referral [employer](F amily Medicin e Clinic Team B) [employer](BO C-Non Clinical) OUTPATIENT [id number] A / BRAULIO CHA 02/03 Released w/o Limitations [employer]([facility]-Non Clinica [facility]) [employer]([facility] Team B) OUTPATIENT [id number] discuss skin tag removal ANITA VALDEZ 06/02 Released w/o Limitations [employer](F amily Medicin e Clinic Team B) [employer]([facility] Team A) TELE CONSULT [id number] Notes Entered by: ANGELA VIDAL 24 Nov 2019 0703 ------- ------- ------- ------- -- Cough, Congest ion, Dizzine ss since 11/22/19 MIHAI BAIN 11/24 Other Not Elsewhere Classified [employer]([facility] Team A) [employer]([facility] Team A) OUTPATIENT [id number] NARINDER RUSSELL 11/24 Sick at Home/Quarter s [employer]([facility] Team A) [employer]([facility] A) OUTPATIENT [id number] cough,c ongesti on BRIANNE HERRERA 11/27 Sick at Home/Quarter s [employer]([facility] Team A) [employer]([facility] A) TELE CONSULT [id number] Notes Entered by: NATALIA CORCORAN 22 Dec 2019 1130 ------- ------- ------- ------- -- NAL - [facility] MIHAI BAIN 12/22 Referred for Appointment [employer]([facility] Team A) [employer]([facility] Team A) TELE CONSULT [id number] Notes Entered by: ANGELA VIDAL 26 Dec 2019 0832 ------- ------- ------- ------- -- [facility] ed Vertigo Symptom s, feels like water is in ears MIHAI BAIN 12/26 Referred- Emergency Department [employer]([facility] Team A) [facility] Team A) TELE CONSULT [id number] Notes Entered by: SHANE ORTIZ 29 Dec 2019 1058 ------- ------- ------- ------- -- Network result - Dr Marcy crawford - 020 SHEY RICHARD 12/29 [facility] Team A) [facility] Medical Group(BO C) OUTPATIENT [id number] PHA/OMARA SARA AUGUSTIN 01/13 Released w/o Limitations [employer](B [facility]) [employer]([facility] Team A) OUTPATIENT [id number] dizzine ss x 1 month f/u ER, [facility] BEBE AVERY 01/18 Released w/o Limitations [employer]([facility] Team A) [employer]([facility] A) TELE CONSULT [id number] Notes Entered by: FIONA ASKEW 28 Jan 2020 0706 ------- ------- ------- ------- -- Referra jerrica CORCORAN DARCY Alma 01/27 Released to Self Care [employer]([facility] Team A) [employer]([facility] A) TELE CONSULT [id number] Notes Entered by: THOMAS MARADIAGA 05 Feb 2020 0942 ------- ------- ------- ------- -- network result neuro 01-29-20 BRAULIO LOVE 02/04 [facility] Team A) [facility] Team A) TELE CONSULT [id number] Notes Entered by: MANDI CHAN 26 Apr 2020 1250 ------- ------- ------- ------- -- Request ing [facility] for lumbar punctur e BRAULIO LOVE 04/26 [facility] Team A) [facility] Team A) TELE CONSULT [id number] Notes Entered by: VINH MEDINA 14 May 2020 0824 ------- ------- ------- ------- -- Sore throat/ cough MIHAI BAIN 05/14 Immediate Referral [facility] Team A) [facility] Team A) TELE CONSULT [id number] Notes Entered by: GOPAL MENDOZA 18 May 2020 1617 ------- ------- ------- ------- -- Network Results - Neurolo gy 05/18/20 BRAULIO LOVE 05/18 [facility] Team A) [facility] Team A) TELE CONSULT [id number] Notes Entered by: SHANE ORTIZ 19 May 2020 0856 ------- ------- ------- ------- -- Network result - Neurolo gy - 020 BRAULIO LOVE 05/19 [employer]([facility] Team A) [employer](Opt ometry Clinic) OUTPATIENT [id number] REE/Ret rabia Jun SANDRAYVROSE Mark [facility] 12/08 Released w/o Limitations [employer](O ptometr y Clinic) [employer](BOM C) OUTPATIENT [id number] [phone] [id number] SARA Rodriguez 01/31 Released w/o Limitations [employer](B [facility]) [employer]([facility] Team A) TELE CONSULT [id number] Notes Entered by: PATRICIA MENDOZA 14 Feb 2021 1127 ------- ------- ------- ------- -- Possibl e sleep apnea ELIOT OCAMPO 02/14 Referred for Appointment [employer]([facility] Team A) [employer]([facility] A) OUTPATIENT [id number] [phone] Eval for possibl e sleep apnea BRAULIO LOVE 02/23 Released w/o Limitations [employer]([facility] Team A) [employer]([facility] A) OUTPATIENT [id number] fatigue , congest ion, cold symptom s NEVILLE MENDEZ 03/23 Released w/o Limitations [employer]([facility] Team A) [employer]([facility] Team A) TELE CONSULT [id number] Notes Entered by: PATRICIA MENDOZA 24 Mar 2021 1101 ------- ------- ------- ------- -- Medicat ion request DARCY CORCORAN 03/24 Released to Self Care [employer]([facility] Team A) [employer]([facility] Team A) OUTPATIENT [id number] VSHPE RET [id number] enc/Franchesca udio d/t mission limitat [...] Type Code Date Perfomer Comments Sourc e TELE ASSESS & MGT SRV PROV QUAL [...] EG, MMPI), ADMINISTERED COMPUTER, W QUALIFIED HEALTH MECHANICAL DESIGN DRAFTER INTERPRET &RPT 2009 DoD VIS FUNCT SCREEN,AUTOMAT/SEMI [...] OR SIMILAR, WITH OR WITHOUT JOINTS, PREFABRICATED, QIO-LRT-QOFMM 2007 DoD TELE ASSESS & MGT SRV [...] OUTPATIENT FACILITY, APPROXIMATELY 20 TO 30 MINUTES PSMG-SD-[id number] WITH THE PATIENT 2004 DoD INDIVIDUAL PSYCHOTHERAPY, INSIGHT ORIENTED, BEHAVIOR MODIFYING AND/OR SUPPORTIVE, IN AN OFFICE OR OUTPATIENT FACILITY, APPROXIMATELY 20 TO 30 MINUTES [id number] WITH THE PATIENT 2004 DoD FITTING OF SPECTACLES, EXCEPT FOR APHAKIA; MONOFOCAL 2003 DoD INDIVIDUAL PSYCHOTHERAPY, INSIGHT ORIENTED, BEHAVIOR MODIFYING AND/OR SUPPORTIVE, IN AN OFFICE OR OUTPATIENT FACILITY, APPROXIMATELY 20 TO 30 MINUTES [id number] WITH THE PATIENT 2003 DoD INDIVIDUAL PSYCHOTHERAPY, INSIGHT ORIENTED, BEHAVIOR MODIFYING AND/OR SUPPORTIVE, IN AN OFFICE OR OUTPATIENT FACILITY, APPROXIMATELY 20 TO 30 MINUTES [id number]-JR-[id number] WITH THE PATIENT 2003 DoD PSYCHIATRIC DIAGNOSTIC INTERVIEW EXAMINATION 2003 DoD INDIVIDUAL PSYCHOTHERAPY, INSIGHT ORIENTED, BEHAVIOR MODIFYING AND/OR SUPPORTIVE, IN AN OFFICE OR OUTPATIENT FACILITY, APPROXIMATELY 20 TO 30 MINUTES [id number]-[id number] WITH THE PATIENT 2003 DoD DESTRUCT (EG, [...] OUTPATIENT FACILITY, APPROXIMATELY 45 TO 50 MINUTES [id number] WITH THE PATIENT 2003 DoD FAMILY PSYCHOTHERAPY (CONJOINT PSYCHOTHERAPY) (WITH PATIENT PRESENT), 50 MINUTES 2002 DoD INDIVIDUAL PSYCHOTHERAPY, INSIGHT ORIENTED, BEHAVIOR MODIFYING AND/OR SUPPORTIVE, IN AN OFFICE OR OUTPATIENT FACILITY, APPROXIMATELY 45 TO 50 MINUTES [id number] WITH THE PATIENT 2002 DoD FAMILY PSYCHOTHERAPY (CONJOINT PSYCHOTHERAPY) (WITH PATIENT PRESENT), 50 MINUTES 2002 DoD DESTRUCTION (EG, LASER SURGERY, ELECTROSURGERY, CRYOSURGERY, CHEMOSURGERY, SURGICAL CURETTEMENT), PREMALIGNANT LESIONS (EG, ACTINIC KERATOSES); FIRST LESION 2002 DoD INDIVIDUAL PSYCHOTHERAPY, INSIGHT ORIENTED, BEHAVIOR MODIFYING AND/OR SUPPORTIVE, IN AN OFFICE OR OUTPATIENT FACILITY, APPROXIMATELY 45 TO 50 MINUTES [id number]-HD-[id number] WITH THE PATIENT 2002 [facility] FAMILY PSYCHOTHERAPY (CONJOINT PSYCHOTHERAPY) (WITH PATIENT PRESENT), 50 MINUTES 2002 [facility] REMOVAL OF IMPACTED CERUMEN (ONE OR BOTH EARS) BY PHYSICIAN ON SAME DATE OF SERVICE AUDIOLOGIC FUNCTION TESTING 2002 [facility] Non-Physician Phone Call To Patient/Provider Brief (5-10min) Non-Physician Phone Call To Patient/Provider Brief (5-10min) [id number] 2018 GORAN HALE [facility] Non-Physician Phone Call To Patient/Provider Brief (5-10min) Non-Physician Phone Call To Patient/Provider Brief (5-10min) [id number] 2017 DEWAYNE KELLY [facility] Non-Physician Phone Call To Patient/Provider Brief (5-10min) Non-Physician Phone Call To Patient/Provider Brief (5-10min) [id number] 2017 MORIAH BYNUM [facility] Spectacles Services Fitting Monofocals (Not For Aphakia) [employer] Fitting Monofocals (Not For Aphakia) 32915 2017 SIVAN CHARLES [facility] Determination Of Refractive State Determination Of Refractive State 80364 2017 SIVAN CHARLES [facility] Ophthalmological New Patient Start Comprehensive Care Ophthalmological New Patient Start Comprehensive Care [id number] 2017 SIVAN CHARLES [facility] Non-Physician Phone Call To Patient/Provider Brief (5-10min) Non-Physician Phone Call To Patient/Provider Brief (5-10min) [id number] 2017 DEWAYNE KELLY [facility] Non-Physician Phone Call To Patient/Provider Brief (5-10min) Non-Physician Phone Call To Patient/Provider Brief (5-10min) 82905 2017 DEWAYNE KELLY [facility] Psychiatric Evaluation Review of Records and Reports Psychiatric Evaluation Review of Records and Reports 17327 2016 MARY LANDA [facility] Respiratory Equip IPPB Related Equip Nebulizer Respiratory Equip IPPB Related Equip Nebulizer 51663 2015 KANA POWERS [facility] Non-Physician Phone Call To Pt/Provider Intermed (11-20 min) Non-Physician Phone Call To Pt/Provider Intermed (11-20 min) 18822 2015 TOYIN DAVID [facility] Cerumen Removal Right Ear Cerumen Removal Right Ear [id number] 2014 KANA POWERS [facility] Ophthalmological Prior Patient Start Intermediate Level Care Ophthalmological Prior Patient Start Intermediate Level Care 22454 2013 BRODYARLENRANDY MOORE [facility] Destruction Of Flat Warts By Cryosurgery Up To 14 Lesions Destruction Of Flat Warts By Cryosurgery Up To 14 Lesions 88951 2012 ALONDRA BEAVERS [facility] Ophthalmological Prior Patient Start Comprehensive Care Ophthalmological Prior Patient Start Comprehensive Care 55204 2010 WANDA NICOLE Determination Of Refractive State Determination Of Refractive State 48689 2010 WANDA NICOLE [employer] Fitting Monofocals (Not For Aphakia) [employer] Fitting Monofocals (Not For Aphakia) 25655 2010 WANDA NICOLE Psychologic Testing And Report Administered By Computer Psychologic Testing And Report Administered By Computer 44337 2009 JUAN PASTRANA [facility] Visual Function Screening Visual Function Screening 74310 2009 CJ LARA [facility] Injection, betamethasone acetate 3 mg and betamethasone sodium phosphate 3 mg 2007 CORNELIA GENAO pt. recieved 1.2 mil Bicillin in left glute with 21 gauge needle. pt. also received 6 mg celestone to right glute at approximately 1135 hours. pt. response normal. Celestone exp.11/2009 lot#[id number]. [facility] Injection, penicillin G benzathine and penicillin G procaine, up to 1,200,000 units [address] Supervised Injection Intramuscular DrFaizan Supervised Injection Intramuscular 87190 2007 CORNELIA GENAO Ankle orthosis, ankle gauntlet or similar, with or without joints, prefabricated, ssi-fpu-doubs 2007 RENATA JUARES [facility] Psychiatric Evaluation Review of Records and Reports Psychiatric Evaluation Review of Records and Reports 25392 2005 ZABRINA MCCOY [facility] Non-Physician Phone Call To Patient/Provider Brief (5-10min) Non-Physician Phone Call To Patient/Provider Brief (5-10min) 46003 MIHAI BAIN [facility] Ophthalmological New Patient Start Comprehensive Care Ophthalmological New Patient Start Comprehensive Care [address]62 [facility] Determination Of Refractive State Determination Of Refractive State [address] [facility] Spectacles Services Fitting Monofocals (Not For Aphakia) [employer] Fitting Monofocals (Not For Aphakia) [address] [facility] No data available for this section Ambulato ry Pharmacy Social History Combined list of available smoking, tobacco, and other social history from Department of Defense and Veterans Affairs facilities. Social History Type Response Date Comment Sour e This section is an empty social history section. [facility] Assessment and Plan Combined [...] at Department of [employer] and [place] [facility] [place] Functional [place] Measurement (FIM) Scale: 1 = Total Assistance (Subject = 0% +), 2 = Maximal Assistance (Subject = 25% +), 3 = Moderate Assistance (Subject = 50% +), 4 = Minimal Assistance (Subject = 75% +), 5 = Supervision, 6 = Modified [place] (Device), 7 = Complete [place] (Timely, Safely). Assessment Date/Time Source Assessment Type Assessment Skill Assessment Score Assessment Details No data available for this section
--- NOTE | 2025-06-01 17:13 | ED_ITS ---
HPI - Chest Pain General Chief Complaint: Chest Pain Stated Complaint: chest pain Time Seen by Provider: 06/01/25 16:42 History of Present Illness HPI narrative: Pt presents with epigastric pain up into chest for 4 days luis enrique and on. Pt has been seeing GI for inflamtion in stomach and possible ulcer and has been started on medicines severeal weeks ago. Pt called Gi doctor office today and told to come to ER. Pt denies SOB. Describes burning. Related Data Home Medications ?Medication ?Instructions ?Recorded ?Confirmed ?Last Taken ?Type atorvastatin 10 mg tablet (Lipitor) 10 mg PO DAILY 05/11/25 05/19/25 Unknown History carbamide peroxide 6.5 % ear drops 5 drp EACH EAR Q12H 05/11/25 05/19/25 Unknown History (Debrox) ergocalciferol (vitamin D2) 1,250 1,250 mcg PO WEEKLY 05/11/25 05/19/25 Unknown History mcg (50,000 unit) capsule fluticasone propionate 50 1 spray intranasal DAILY 05/11/25 05/19/25 Unknown History mcg/actuation nasal spray,suspension (Allergy Relief (fluticasone)) hydrocortisone 2.5 % topical cream 1 applic topical TID PRN 05/11/25 05/19/25 Unknown History loratadine 10 mg capsule (Allergy 10 mg PO DAILY 05/11/25 05/19/25 Unknown History Relief (loratadine)) Allergies Allergy/AdvReac Type Severity Reaction Status Date / Time No Known Allergies Allergy Verified 06/01/25 14:00 Review of Systems 2 Review of Systems: All systems reviewed & are unremarkable except as noted in HPI and below PMFSH Past Medical History Medical History Allergic contact dermatitis GERD (gastroesophageal reflux disease) Allergic rhinitis Hemorrhoids Hyperlipidemia Vitamin D deficiency Healthy adult male Surgical History Surgical History No history of previous surgery Social History Social History Smoking status: Current every day smoker Tobacco type: cigarettes Alcohol intake: current Substance use: never Exam 2 Const: General: healthy appearing and no acute distress Nutritional Appearance: well nourished Orientation/consciousness: patient oriented x3 Limitations: no limitations Resp: Effort & Inspection: normal respiratory effort Auscultation: clear to auscultation bilaterally Cardio: Rate: regular rate Rhythm: regular rhythm GI: GI Palp: Yes Soft to palpation and Yes Tenderness to palpation present (GI) (mild epigastric) Auscultation: normal bowel sounds Back/Spine/Pelvis: Back: no CVA tenderness Skin: General skin exam: normal color Wounds: no wounds Neuro: General: patient oriented x3 and moves all extremities Speech: n ormal speech Extrem: General: normal to inspection Psych: Mental Status: mental status grossly normal Affect: normal affect Attitude: cooperative Course Vital Signs Vital signs: Vital Signs Temperature 97.8 F 06/01/25 13:55 Pulse Rate 118 H 06/01/25 13:55 Respiratory Rate 06/01/25 13:55 Blood Pressure 148/94 H 06/01/25 13:55 Pulse Oximetry 100 06/01/25 13:55 Oxygen Delivery Room Air 06/01/25 13:55 Temperature 97.8 F 06/01/25 13:55 Pulse Rate 118 H 06/01/25 13:55 Respiratory Rate 06/01/25 13:55 Blood Pressure 148/94 H 06/01/25 13:55 Pulse Oximetry 100 06/01/25 13:55 Oxygen Delivery Room Air 06/01/25 16:43 MDM - Chest Pain MDM Narrative Medical decision making narrative: Pt has been having intermittent epigastric burning for last 4 days. Pt has been seeing GI but no scope yet. Pt on meds for reflux but not working last 4 days. doubt cardiac but will get ekg and trop x 1. labs look fine trop normal ekg sinus tach but no ekg changes. GI cocktail given with relief. Lab Data 06/01/25 14:05 06/01/25 14:05 Labs: Lab Results 06/01/25 Range/Units 14:05 WBC 8.4 (4.5-10.0) K/mm3 RBC 4.96 (4.6-6.20) M/mm3 Hgb 15.6 (14.0-18.0) g/dL Hct 44.9 (42.0-52.0) % MCV 90.5 (80-100) fl MCH 31.5 (26-34) pg MCHC 34.7 (32-36) g/dl RDW 13.0 (11.5-14.5) % Plt Count 211 (150-375) k/mm3 MPV 8.8 (7.4-10.4) fl Immature Gran % (Auto) 0.5 (0-0.5) % Neut % (Auto) 76.3 H (45.5-73.1) % Lymph % (Auto) 16.4 L (18.3-44.2) % Turner % (Auto) 5.1 (2.6-8.5) % Eos % (Auto) 1.5 (0-4.4) % Baso % (Auto) 0.2 (0.2-1.2) % Lymph # (Auto) 1.38 (0.9-3.2) K/mm3 Turner # (Auto) 0.4 (0.1-0.6) K/mm3 Eos # (Auto) 0.1 (0-0.3) K/mm3 Baso # (Auto) 0.0 (0.0-0.1) K/mm3 Abs Immat Gran (auto) 0.04 H (0.00-0.031) K/mm3 Absolute Neuts (auto) 6.4 (1.3-6.7) K/mm3 Absolute Nucleated RBC 0.000 (0.0-0.012) K/mm3 Nucleated RBC % 0.0 (0.0-0.2) % PT 13.0 (11.1-14.7) Seconds INR 1.0 APTT 27.5 (22.3-36.8) Seconds Sodium 137 (137-145) mmol/L Potassium 3.9 (3.4-5.0) mmol/L Chloride 101 (98-107) mmol/L Carbon Dioxide 26 (22-30) mmol/L Anion Gap 10 (4-12) mmol/L BUN 11 (9-20) mg/dL Creatinine 1.03 (0.7-1.3) mg/dL Estim Creat Clear Calc 80 ml/min Estimated GFR > 60 (59 - ) Glucose 189 H (65-110) mg/dL Calcium 9.3 (8.4-10.2) mg/dL Total Bilirubin 1.2 (0.2-1.3) mg/dL AST 39 (17-59) U/L ALT 41 (6-50) U/L Alkaline Phosphatase 57 (38-126) U/L Troponin I < 0.012 (0.000-0.034) ng/mL Total Protein 7.4 (6.3-8.2) g/dL Albumin 4.7 (3.5-5.1) g/dL Lipase 92 (23-300) U/L Discharge Plan Discharge Clinical Impression: Gastritis Patient Disposition: Home Condition: Improved Instructions: Antibiotic Form, Gastritis (DC) Additional Instructions: can add pepcid ac otc Patient Language: Kinyarwanda Prescriptions: No Action atorvastatin [Lipitor] 10 mg tablet 10 mg PO DAILY Debrox 6.5 % drops 5 drp EACH EAR Q12H ergocalciferol (vitamin D2) 1,250 mcg (50,000 unit) capsule 1,250 mcg PO WEEKLY fluticasone propionate [Allergy Relief (fluticasone)] 50 mcg/actuation spray,suspension 1 spray intranasal DAILY Rx Instructions: administer into each nostril hydrocortisone 2.5 % cream 1 applic topical TID PRN Allergy Relief (loratadine) 10 mg capsule 10 mg PO DAILY Xifaxan 550 mg tablet 550 mg PO TID 14 Days Qty: 42 1RF pantoprazole [Protonix] 40 mg tablet,delayed release (DR/EC) 40 mg PO BID Qty: 30 0RF Follow-up/Referrals: Connor,MD Yariel [Primary Care Provider] -
== END 2025-06-01 17:33 | disposition home or self-care (01) ==
PROVIDERS: Emergency Provider Emergency Medicine; PCP Family Medicine
DX: K29.70 Gastritis, unspecified, without bleeding (principal); E78.5 Hyperlipidemia, unspecified; E55.9 Vitamin D deficiency, unspecified; K21.9 Gastro-esophageal reflux disease without esophagitis; F17.210 Nicotine dependence, cigarettes, uncomplicated; R00.0 Tachycardia, unspecified
CPT/HCPCS: 36415; 71046; 80053; 83690; 84484; 85025; 85610; 85730; 93005; 99284; A9270

== ENCOUNTER 2025-09-10 02:14 | Day surgery (SDC) | payer OTHER, SELFPAY ==
[2025-09-01 15:08] VITALS: BMI 26.6
[2025-09-10 08:24] VITALS: BP 127/87; PULSE 92; RESP 18; TEMP 36.3; O2SAT 100; BMI 26.4
[2025-09-10] MEDS: LACTATED RINGERS 1,000 ML 150 ML IV CONT (08:38)
--- NOTE | 2025-09-10 09:19 | WPDANESEPPF ---
Anes - Initial Pre Proc Eval Procedure: Operation Date: 09/10/25 09:30 Proposed Procedures p EGD & Diagnostic Colonoscopy - Eleuterio Padilla MD Date/Time: 09/10/25 09:19 Surgeon: Eleuterio Padilla MD Pre Op Diagnosis: Nausea, Change in bowel habit, Diarrhea, unspecifi Patient Data Age: 44 Gender: M Height: 1.73 m Weight: 78.8 kg Last Vital Signs Temp 36.3 C L 09/10/25 08:24 Pulse 92 09/10/25 08:24 Resp 18 09/10/25 08:24 BP 127/87 09/10/25 08:24 Pulse Ox 100 09/10/25 08:24 O2 Del Method Room Air 09/10/25 08:24 Allergies Allergy/AdvReac Type Severity Reaction Status Date / Time No Known Allergies Allergy Verified 09/10/25 08:29 Home Medications ?Medication ?Instructions ?Recorded ?Confirmed ?Type atorvastatin 10 mg tablet (Lipitor) 10 mg PO DAILY 05/11/25 09/01/25 History carbamide peroxide 6.5 % ear drops 5 drp EACH EAR Q12H 05/11/25 09/01/25 History (Debrox) fluticasone propionate 50 1 spray intranasal DAILY 05/11/25 09/01/25 History mcg/actuation nasal spray,suspension (Allergy Relief (fluticasone)) hydrocortisone 2.5 % topical cream 1 applic topical TID PRN rash 05/11/25 09/01/25 History loratadine 10 mg capsule (Allergy 10 mg PO DAILY 05/11/25 09/10/25 History Relief (loratadine)) pantoprazole 40 mg tablet,delayed 40 mg PO BID #60 tabs 08/27/25 09/10/25 Rx release (Protonix) Patient hx anesthesia problems: none Family hx anesthesia problems: none Results Review: All pre-operative results and documents have been reviewed as part of the pre-operative evaluation. [facility] Past Medical History Medical History Allergic contact dermatitis GERD (gastroesophageal reflux disease) Allergic rhinitis Hemorrhoids Hyperlipidemia Vitamin D deficiency Healthy adult male Surgical History Surgical History No history of previous surgery Social History Social History Smoking status: Current every day smoker Tobacco type: e-cigarettes/vaping Alcohol intake: current Drinks per week: 8 Substance use: never Substance use type: does not use Living arrangements: with family Spiritual care concerns: No Anes - Eval Final PreProcedure Day of Procedure 09/10/25 09:19 Patient weight: overweight Heart: regular rate and rhythm Lungs: clear to auscultation Airway: Mallampati scale class II Neurological: alert and oriented Last oral intake: >/= 8 hours ASA classification: II Emergent: no Anesthetic plan: proceed Anesthesia type and monitoring: general GIVS and standard monitoring Results Review: All pre-operative results and documents have been reviewed as part of the pre-operative evaluation. Informed Consent: The patient's anesthetic plan and its attendant risks and benefits were discussed with the patient/family/POA. Questions were solicited and answers provided to the satisfaction of the patient/family/POA.
[2025-09-10] MEDS: BENZOCAINE (*SP) 60 ML SPRAY CAN (HURRICAINE) 1 SPRAY MUCOUS MEM (09:38)
--- NOTE | 2025-09-10 09:38 | WPDHPUPDATE1 ---
History and Physical Update Update Date/Time: 09/10/25 09:38 History and Physical has been reviewed, including an updated exam of the patient. There are NO changes in the patient's condition. Risks, benefits, and alternatives have been discussed and questions answered. Patient agrees to proceed with procedure.
--- NOTE | 2025-09-10 09:49 | SUR.OPER ---
EGD ended at 943, colon began at 948.
--- NOTE | 2025-09-10 09:55 | S_PTH ---
PATIENT: Medhat Khan LOC: [facility] Li#:[id number] AGE/SX: 44/M ROOM: RE09/10/[address]: Eleuterio Padilla MD : 1980 BED: DIS: 09/10/2025 SPEC #: [id number] RECD: 09/10/25 11:12 STATUS: ALAN RE #: [id number] SHAUNA: 09/10/25 09:[address]: Eleuterio Padilla DEPT: [facility] Surgical RECD BY: Rita Nice ENTERED: 09/10/25 11:13 SP TYPE: Surgical OTHR DR: Yariel Ryan, Tissues: A - Small Bowel Bx B - Gastric Biopsy C - Colon Biopsy Procedures: Hematoxylin and Eosin Stain Gross and Microscopic Level 4
[2025-09-10 10:01] VITALS: BP 110/71; PULSE 91; RESP 20; O2SAT 97
[2025-09-10 10:11] VITALS: BP 107/74; PULSE 81; RESP 14; O2SAT 97
[2025-09-10 10:21] VITALS: BP 112/80; PULSE 79; RESP 20; O2SAT 100
== END 2025-09-10 10:36 | disposition home or self-care (01) ==
PROVIDERS: PCP Family Medicine; Referring Provider Nurse Practitioner Family; Visit Provider Internal Medicine Gastroenterology
PROC: 0DJ08ZZ Inspection of Upper Intestinal Tract, Via Natural or Artificial Opening Endoscopic (ICD-10-PCS; CPT 45378; principal; 2025-09-10 09:30)
DX: K64.8 Other hemorrhoids (principal); K21.9 Gastro-esophageal reflux disease without esophagitis; K31.89 Other diseases of stomach and duodenum; E55.9 Vitamin D deficiency, unspecified; E78.5 Hyperlipidemia, unspecified; L23.9 Allergic contact dermatitis, unspecified cause; F17.290 Nicotine dependence, other tobacco product, uncomplicated
CPT/HCPCS: 43239; 45380; 88305; J2003; J2704; J7120